=== PATIENT | female | born 1945 | race Caucasian/White ===

== ENCOUNTER → 2017-08-21 13:31 | Outpatient (CLI) | payer MEDICARE, OTHER, SELFPAY ==
--- NOTE | 2017-08-21 13:34 | HPBI_ITS ---
MAMMOGRAPHY - BILATERAL SCREENING REASON FOR EXAM: Female, 71 years old. Routine annual screening examination. PERTINENT HISTORY: Non-contributory. Remote left excisional breast biopsy. TECHNIQUE: Digital bilateral breast ted (3D mammographic acquisition) in the CC and MLO projections. 2-D mediolateral oblique (MLO) and craniocaudad (CC) views of both breasts were obtained. CAD: Full Field Digital Mammography with Computer Added Detection was performed. COMPARISON: Comparison is made with prior study dated June 18, 2016 and November 10, 2014. FINDINGS: Breast Composition: There are scattered areas of fibroglandular density. There are no dominant masses or suspicious calcifications. No other significant abnormalities are identified. There has been no significant change since the prior study. HPBI/SCREENING MAMM (CAD), BILAT IMPRESSION: Stable bilateral screening mammogram. Yearly follow-up mammogram recommended. (A) ASSESSMENT CATEGORY: BIRADS Category 1: Negative. A letter regarding these results will be sent to the patient by the facility within 30 days. Approximately 10% of breast cancers are not detected by mammography. A normal mammogram should not delay biopsy of a clinically suspicious abnormality. [id number] Electronically Signed: Braeden Anderson MD at 8:45 EST Tel [phone], Service support ,
== END ==
PROVIDERS: Family Provider Family Medicine Geriatric Medicine; PCP Family Medicine Geriatric Medicine; Visit Provider Family Medicine Geriatric Medicine
DX: Z12.31 Encounter for screening mammogram for malignant neoplasm of breast (principal)
CPT/HCPCS: 77063; 77067

== ENCOUNTER → 2017-08-26 11:48 | Outpatient (CLI) | payer MEDICARE, OTHER, SELFPAY ==
[2017-08-26 13:54] LABS: Absolute Lymphocyte Count 0.95 X10^3/ul (0.83-4.51); Absolute Neutrophil Count 5.1 X10^3/uL (2.0-7.7); Basophil# 0.03 X10^3/uL; Basophil% 0.4 % (0-1); Eosinophils% 2.9 % (0-5); Hematocrit 41.4 % (37-47); Hemoglobin 13.7 g/dl (12.0-15.0); Lymphocyte # 0.95 X10^3/ul (4.0); Mean Corp Hgb Conc 33.1 g/gl (32-36); Mean Corpuscular Hgb 29.8 pg (27.0-32.0); Mean Platelet Vol. 11.2 fl (6.2-12.0); Monocyte# 0.53 X10^3/uL; Monocyte% 7.8 % (0-10); Neutrophil # 5.07 X10^3/uL (2.7-7.7); Neutrophil % 74.8 % (47-70); Platelet Count 259 K/mm3 (150-450); RBC Distribution Width CV 13.6 % (11.6-14.6); RBC Distribution Width SD 44.7 fl (35.1-43.9); White Blood Count 6.8 K/mm3 (4.4-11.0)
[2017-08-26 13:59] LABS: POSITIVE COUNT NO; POSITIVE DIFFERENTIAL NO; POSITIVE MORPHOLOGY NO
[2017-08-26 14:16] LABS: AST(SGOT) 17 U/L (15-37); Alanine Aminotransfer ALT/SGPT 26 U/L (13-56); Albumin, Serum 3.5 g/dL (3.2-5.0); Alkaline Phosphatase 83 U/L (45-117); Anion Gap 11 (5-15); BUN 24 mg/dL (7-18); BUN/Creat Ratio 27.3 RATIO (10-20); Calcium,Total 8.8 mg/dL (8.5-10.1); Chloride 100 mmol/L (98-107); Creatinine, Serum 0.88 mg/dL (0.55-1.02); EST Glomerular Filtration Rate 68 mL/min (>60); Est Glom Filt Rate - Afr Amer 82 mL/min (>60); Globulin 3.4 g/dL (2.2-4.2); Glucose 184 mg/dL (74-106); Potassium 3.6 mmol/L (3.5-5.1); Protein, Total 6.9 g/dL (6.4-8.2); Sodium Level 140 mmol/L (136-145); Thyroid Stim Hormone (TSH) 1.24 uIU/mL (0.358-3.74)
[2017-08-27 09:43] LABS: Vitamin D,25 Hydroxy 25.4 ng/mL (29.95-100.01)
== END ==
PROVIDERS: Family Provider Family Medicine Geriatric Medicine; PCP Family Medicine Geriatric Medicine; Visit Provider Family Medicine Geriatric Medicine
DX: I10 Essential (primary) hypertension (principal); E11.9 Type 2 diabetes mellitus without complications; E55.9 Vitamin D deficiency, unspecified
CPT/HCPCS: 36415; 80053; 82306; 84443; 85025

== ENCOUNTER → 2017-11-20 11:53 | Outpatient (CLI) | payer MEDICARE, OTHER, SELFPAY ==
[2017-11-20 13:05] LABS: Absolute Lymphocyte Count 0.75 X10^3/ul (0.83-4.51); Absolute Neutrophil Count 5.2 X10^3/uL (2.0-7.7); Basophil# 0.03 X10^3/uL; Basophil% 0.4 % (0-1); Eosinophil# 0.17 X10^3/uL; Eosinophils% 2.5 % (0-5); Hematocrit 42.5 % (37-47); Hemoglobin 13.7 g/dl (12.0-15.0); Lymphocyte # 0.75 X10^3/ul (4.0); Lymphocyte % 11.2 % (19-41); Mean Corp Hgb Conc 32.2 g/gl (32-36); Mean Corpuscular Hgb 29.2 pg (27.0-32.0); Mean Corpuscular Volume 90.6 fL (81-99); Mean Platelet Vol. 11.1 fl (6.2-12.0); Monocyte# 0.56 X10^3/uL; Monocyte% 8.3 % (0-10); Neutrophil % 77.5 % (47-70); POSITIVE COUNT NO; POSITIVE DIFFERENTIAL NO; POSITIVE MORPHOLOGY NO; Platelet Count 261 K/mm3 (150-450); RBC Distribution Width CV 14.1 % (11.6-14.6); RBC Distribution Width SD 46.2 fl (35.1-43.9); Red Blood Count 4.69 M/mm3 (4.2-5.4); White Blood Count 6.7 K/mm3 (4.4-11.0)
[2017-11-20 13:24] LABS: AST(SGOT) 18 U/L (15-37); Alanine Aminotransfer ALT/SGPT 25 U/L (13-56); Albumin, Serum 3.7 g/dL (3.2-5.0); Alkaline Phosphatase 83 U/L (45-117); Anion Gap 6 (5-15); BUN 25 mg/dL (7-18); BUN/Creat Ratio 28.5 RATIO (10-20); Calcium,Total 9.1 mg/dL (8.5-10.1); Chloride 102 mmol/L (98-107); Creatinine, Serum 0.88 mg/dL (0.55-1.02); EST Glomerular Filtration Rate 68 mL/min (>60); Est Glom Filt Rate - Afr Amer 82 mL/min (>60); Globulin 3.7 g/dL (2.2-4.2); Glucose 120 mg/dL (74-106); Potassium 3.6 mmol/L (3.5-5.1); Protein, Total 7.4 g/dL (6.4-8.2); Sodium Level 140 mmol/L (136-145); Thyroid Stim Hormone (TSH) 1.17 uIU/mL (0.358-3.74)
[2017-11-21 10:14] LABS: Vitamin D,25 Hydroxy 22.2 ng/mL (29.95-100.01)
[2017-11-21 11:35] LABS: Hep C Antibodies <0.1 s/co ratio (0.0-0.9)
== END ==
PROVIDERS: Family Provider Family Medicine Geriatric Medicine; PCP Family Medicine Geriatric Medicine; Visit Provider Family Medicine Geriatric Medicine
DX: E11.9 Type 2 diabetes mellitus without complications (principal); E55.9 Vitamin D deficiency, unspecified; I10 Essential (primary) hypertension; Z13.89 Encounter for screening for other disorder
CPT/HCPCS: 36415; 80053; 82306; 84443; 85025; 86803

== ENCOUNTER → 2018-05-27 11:34 | Outpatient (CLI) | payer MEDICARE, OTHER, SELFPAY ==
[2018-05-27 12:41] LABS: Absolute Lymphocyte Count 1.19 X10^3/ul (0.83-4.51); Absolute Neutrophil Count 6.6 X10^3/uL (2.0-7.7); Basophil# 0.03 X10^3/uL; Basophil% 0.3 % (0-1); Eosinophil# 0.25 X10^3/uL; Eosinophils% 2.9 % (0-5); Hematocrit 43.2 % (37-47); Hemoglobin 13.8 g/dl (12.0-15.0); Lymphocyte # 1.19 X10^3/ul (4.0); Lymphocyte % 13.7 % (19-41); Mean Corp Hgb Conc 31.9 g/gl (32-36); Mean Corpuscular Hgb 29.2 pg (27.0-32.0); Mean Corpuscular Volume 91.3 fL (81-99); Mean Platelet Vol. 10.9 fl (6.2-12.0); Monocyte# 0.55 X10^3/uL; Monocyte% 6.3 % (0-10); Neutrophil # 6.64 X10^3/uL (2.7-7.7); Neutrophil % 76.6 % (47-70); Platelet Count 265 K/mm3 (150-450); RBC Distribution Width CV 13.6 % (11.6-14.6); RBC Distribution Width SD 45.2 fl (35.1-43.9); Red Blood Count 4.73 M/mm3 (4.2-5.4); White Blood Count 8.7 K/mm3 (4.4-11.0)
[2018-05-27 12:48] LABS: POSITIVE COUNT NO; POSITIVE DIFFERENTIAL NO; POSITIVE MORPHOLOGY NO
[2018-05-27 12:55] LABS: Vitamin D,25 Hydroxy 20.2 ng/mL (29.95-100.01)
[2018-05-27 13:03] LABS: AST(SGOT) 18 U/L (15-37); Albumin, Serum 3.5 g/dL (3.2-5.0); BUN 21 mg/dL (7-18); BUN/Creat Ratio 25.8 RATIO (10-20); Creatinine, Serum 0.82 mg/dL (0.55-1.02); EST Glomerular Filtration Rate 74 mL/min (>60); Est Glom Filt Rate - Afr Amer 89 mL/min (>60); Globulin 3.5 g/dL (2.2-4.2); Glucose 118 mg/dL (74-106)
[2018-05-27 13:04] LABS: Alanine Aminotransfer ALT/SGPT 25 U/L (13-56); Alkaline Phosphatase 70 U/L (45-117); Anion Gap 11 (5-15); Chloride 101 mmol/L (98-107); Potassium 3.7 mmol/L (3.5-5.1); Sodium Level 140 mmol/L (136-145); Thyroid Stim Hormone (TSH) 0.77 uIU/mL (0.358-3.74)
--- OUTSIDE RECORDS SUMMARY | 2018-07-22 20:32 | XMS RPT_ITS ---
:1945 Author Organization [facility] Care Team Providers Name Role Phone ANISH MILLIGAN Attending Unavailable ANISH MILLIGAN Referring Unavailable JOESPH, STUART-CHI Primary Care Unavailable ANISH MILLIGAN Attending Unavailable [facility] Referring Unavailable JOESPH, STUART-CHI Primary Care Unavailable ANISH MILLIGAN Attending Unavailable [facility] Referring Unavailable JOESPH, STUART-CHI Primary Care Unavailable Joesph, Stuart Chi Attending Unavailable Joesph, Stuart Chi Primary Care Unavailable Joesph, Stuart Chi Referring Unavailable Joesph, Stuart Chi Attending Unavailable Joesph, Stuart Chi Primary Care Unavailable Joesph, Stuart Chi Attending Unavailable Joesph, Stuart Chi Primary Care Unavailable Joesph, Stuart Chi Attending Unavailable Joesph, Stuart Chi Primary Care Unavailable CLIFF SÁNCHEZ (OD) Attending Unavailable LATHA DURAN Referring Unavailable ANISH MILLIGAN Attending Unavailable PROBLEMS PROBLEMS DATE TYPE CONDITION / CODE ATTENDING STATUS SOURCE 03/25/2017 Active Presence of right SRINI ANISH Active [place] artificial knee [facility] Other joint / [place] Z96.651(ICD-10) Repository 06/16/2018 Active Contusion of right PETERSONDAVID ANISH Active [place] knee, initial [facility] Other encounter / [place] S80.01XA(ICD-10) Repository 03/25/2017 Admitting Unknown / ANISH MILLIGAN Active [facility]Unknown[facility] Repository 05/27/2018 Unknown E11.9 - Type 2 Joesph, Stuart Chi Active [place] diabetes mellitus [facility] without Hospital complications / Repository E11.9(ICD-10) 05/27/2018 Unknown E55.9 - Vitamin D Joesph, Stuart Chi Active [place] deficiency, Community unspecified / Hospital E55.9(ICD-10) Repository 05/27/2018 Unknown I10 - Essential Joesph, Stuart Chi Active [place] (primary) Community hypertension / Hospital I10(ICD-10) Repository PROCEDURES PROCEDURES No Procedure Records FoundRESULTS RESULTS PROGRESS Observed: 06/16/2018 Status: COMPLETED Source: [facility] 9:23 AM [facility] OTHER CAMPUS REPOSITORY HNO ID: [id number] Author: Anish Milligan Service: (none) Author Type: Physician Type: Progress Notes Filed: 06/16/2018 9:32 AM Note Text: Chief Complaint: Follow up right knee arthroplasty but recent fall a couple weeks ago History: Filomena is a 72 year old female here for follow-up of her right total knee arthoplasty. She is having pain. He has a bruise laterally. Fell out of bed in early May. No knee joint swelling. Soft tissue bruising and soreness. No instability. Said she was doing well until the fall. There is no lower extremity numbness or tingling. No hip, back, or groin pain. The patient is capable of doing activities of daily living. The patient is not using an ambulatory aide. She denies chest pain, SOB, fever,or chills. No calf pain reported. REVIEW OF SYSTEMS: The review of systems was obtained and reviewed today. It is contained in todays visit in the nursing notes section. The patient's past medical, family medical, social and surgical histories have been reviewed. I have also reviewed allergies and medications with the patient as well. . PHYSICAL EXAMINATION: Patient is alert, oriented and in no acute distress Upper Extremities: Patient's upper extremities have normal appearing alignment, skin circulation, sensation and reflexes, stability, range of motion and strength. There is no apparent atrophy or asymmetry. Lower Extremity: RIGHT Skin intact and well healed anterior incision,bruising over prox tibia laterla Drainage None Erythema no erythema Effusion None ROM 0-125? Tenderness lateral Crepitance None Stability Stable to anterior and posterior drawer testing and to varus and valgus stress testing at 0? and 30? flexion Patella Normal patellar mobility and stability Alignment Normal Calf No calf tenderness, negative Chloe exam and no palpable cords BILATERAL Neurologic Lower extremities exhibit normal strength and sensation to light touch Circulation Intact Edema absent Radiologic Examination: Recent Results (from the past 36 hour(s)) -XR KNEE POST OP 3V AP/LAT/MERCHANT RT Narrative Radiographic Interpretation: AP, lateral, and sunrise radiographs of the right knee was ordered, taken and reviewed today. The radiographs show normal alignment of the knee replacement. There is no evidence of loosening or malrotation. The patella is located well in the trochlea. There is no signs of significant polyethelene wear. No signs of fracture, avulsion or dislocation. No overt signs of bony tumor. Radiographic interpretation: Normal right total knee radiographs, Yary Persona System, stemmed Assessment: Status post total right knee replacement (primary encounter diagnosis) Contusion of right knee, initial encounter Plan: The patient understands total knee activity modifications, recommended antibiotic prophylaxis for total joint arthroplasty and total knee arthroplasty precautions. She is using otc meds for pain management purposes. Patient understands the use of the medication and their risks, complications, benefits and alternatives, including addiction potential when narcotics are used. The need to wean and decrease and eventually stop naroctic medicaiton was discussed. If tolerated and if the patient is not aware of any contraindications, it was suggested to try to use over the counter medications such as Advil or Aleve and Tylenol were discussed as well as dosage, risks complications and benefits. They understand if they have been advised not to take such medications by another practitoner such as their PCP or specialist, that they should avoid their use. If there are any problems prior to her next appointment, she was instructed to call the office FOLLOW-UP: In approximately 3 months, 6 months, 1 year and PRN . Anish Milligan MD CNOV Observed: 06/16/2018 Status: COMPLETED Source: [facility] 9:15 AM [facility]IC OTHER CAMPUS REPOSITORY Office Visit ([id number]) FILOMENA ALMODOVAR ([id number]) 1945 F Date Time Provider Department 06/16/18 9:15 AM ANISH MILLIGAN [id number] During your visit today, we recorded the following information about you: Respiration Weight Height 16/minute 68 kg 1.6 m Miguelangel MancillaJesse 06/16/2018 9:32 AM Signed REVIEW OF SYSTEMS: GENERAL: Well developed, well nourished. No acute distress PAIN: right knee pain CARDIOVASCULAR: Negative for chest pain, leg swelling and palpations. MSK: Negative for joint pain, swelling, back pain, muscle pain. SKIN: Negative for lesions, rash, itching, metal sensitivity NEURO: Negative for seizure, trauma, numbness/tingling of extremities. ENDOCRINE: Negative for Diabetes Type 1 and Type 2 HEMATOLOGY: Negative for excessive bleeding, clots, bleeding disorders. Anish Milligan MD 06/16/2018 9:32 AM Signed Chief Complaint: Follow up right knee arthroplasty but recent fall a couple weeks ago History: Filomena is a 72 year old female here for follow-up of her right total knee arthoplasty. She is having pain. He has a bruise laterally. Fell out of bed in early May. No knee joint swelling. Soft tissue bruising and soreness. No instability. Said she was doing well until the fall. There is no lower extremity numbness or tingling. No hip, back, or groin pain. The patient is capable of doing activities of daily living. The patient is not using an ambulatory aide. She denies chest pain, SOB, fever,or chills. No calf pain reported. REVIEW OF SYSTEMS: The review of systems was obtained and reviewed today. It is contained in todays visit in the nursing notes section. The patient's past medical, family medical, social and surgical histories have been reviewed. I have also reviewed allergies and medications with the patient as well. . PHYSICAL EXAMINATION: Patient is alert, oriented and in no acute distress Upper Extremities: Patient's upper extremities have normal appearing alignment, skin circulation, sensation and reflexes, stability, range of motion and strength. There is no apparent atrophy or asymmetry. Lower Extremity: RIGHT Skin intact and well healed anterior incision,bruising over prox tibia laterla Drainage None Erythema no erythema Effusion None ROM 0-125? Tenderness lateral Crepitance None Stability Stable to anterior and posterior drawer testing and to varus and valgus stress testing at 0? and 30? flexion Patella Normal patellar mobility and stability Alignment Normal Calf No calf tenderness, negative Chloe exam and no palpable cords BILATERAL Neurologic Lower extremities exhibit normal strength and sensation to light touch Circulation Intact Edema absent Radiologic Examination: Recent Results (from the past 36 hour(s)) -XR KNEE POST OP 3V AP/LAT/MERCHANT RT Narrative Radiographic Interpretation: AP, lateral, and sunrise radiographs of the right knee was ordered, taken and reviewed today. The radiographs show normal alignment of the knee replacement. There is no evidence of loosening or malrotation. The patella is located well in the trochlea. There is no signs of significant polyethelene wear. No signs of fracture, avulsion or dislocation. No overt signs of bony tumor. Radiographic interpretation: Normal right total knee radiographs, Y[employer] Persona System, stemmed Assessment: Status post total right knee replacement (primary encounter diagnosis) Contusion of right knee, initial encounter Plan: The patient understands total knee activity modifications, recommended antibiotic prophylaxis for total joint arthroplasty and total knee arthroplasty precautions. She is using otc meds for pain management purposes. Patient understands the use of the medication and their risks, complications, benefits and alternatives, including addiction potential when narcotics are used. The need to wean and decrease and eventually stop naroctic medicaiton was discussed. If tolerated and if the patient is not aware of any contraindications, it was suggested to try to use over the counter medications such as Advil or Aleve and Tylenol were discussed as well as dosage, risks complications and benefits. They understand if they have been advised not to take such medications by another practitoner such as their PCP or specialist, that they should avoid their use. If there are any problems prior to her next appointment, she was instructed to call the office FOLLOW-UP: In approximately 3 months, 6 months, 1 year and PRN . Anish Milligan MD Referring Provider: SELF [200] Allergies As of Date: 06/16/2018 Noted Allergy Reaction AMOXICILLIN 12/12/2000 Comments: hives LATEX 02/25/2005 2 - Rash LYRICA (PREGABALIN) 03/14/2009 Comments: Intolerance MACROBID (NITROFURANTOIN MONOHYD/*02/25/2005 PENICILLINS 06/25/2002 Comments: hives ZOLOFT (SERTRALINE HCL) 02/25/2005 Date Reviewed: 06/16/2018 Reviewed by: Anish Milligan - Fully Assessed Reason for Visit: Follow Up [171] Cmt: f/u status post right knee TKA. Yearly f/u Primary Visit Diagnosis:Status post total right knee replacement [Z96.651] Other Visit Diagnosis:Contusion of right knee, initial encounter [S80.01XA] Order(s):XR KNEE POST OP 3V AP/LAT/MERCHANT RT [[id number]] Order #: [id number] Prescriptions as of 06/16/2018 Sig: ATENOLOL 50 MG-CHLORTHALIDONE* Take one(1) tablet daily. ATORVASTATIN 40 MG TABLET Take 40 mg by mouth once [place]ville* DULOXETINE 30 MG CAPSULE,SANDI* ENOXAPARIN 30 MG/0.3 ML SUBCU* SYNTHROID 112 MCG TABLET Take one(1) tablet daily. LISINOPRIL 5 MG TABLET OXYCODONE-ACETAMINOPHEN 5 MG-* Take 1-2 tablets by mouth katey* OXYCODONE-ACETAMINOPHEN 5 MG-* 1 to 2 tab(s) by mouth every * POTASSIUM CHLORIDE ER 20 MEQ * PREDNISONE 5 MG TABLET Take 5 mg by mouth once daily. BUDESONIDE DR - ER 3 MG CAPSU* CIPROFLOXACIN 500 MG TABLET COLESTIPOL 1 GRAM TABLET DEXLANSOPRAZOLE 60 MG CAPSULE* Take 60 mg by mouth twice óscar* DICYCLOMINE 20 MG TABLET Take 1 tablet by mouth three * DIPHENOXYLATE-ATROPINE 2.5 MG* Take 2 tablets by mouth three* DULOXETINE 60 MG CAPSULE,SANDI* Take 60 mg by mouth once [place]ville* VITAMIN D2 ORAL Take by mouth. METRONIDAZOLE 500 MG TABLET OMEPRAZOLE 20 MG CAPSULE,SANDI* ONDANSETRON HCL 4 MG TABLET OXYCODONE 5 MG TABLET PAROXETINE 40 MG TABLET POTASSIMIN ORAL Take 3 tablets by mouth twice* RIFAXIMIN 550 MG TABLET Take 1 tablet by mouth three * Problem List As Of Date 06/16/2018 Noted Resolved Multiple Sclerosis [G35] INVALID FOR* Class: Chronic Essential Hypertension, Benign [I10] INVALID FOR* Migraine NOS/not Intrcbl [G43.909] INVALID FOR* Polymyalgia Rheumatica [M35.3] INVALID FOR* Nontoxic Multinodular Goiter [E04.2] INVALID FOR* More... Spinal Stenosis in Cervical Region [M48.02] INVALID FOR* Depressive Disorder, not Elsewhere Classified [*INVALID FOR* More... Routine Gynecological Examination [Z01.419] INVALID FOR* Class: Chronic Impaired Fasting Glucose [R73.01] INVALID FOR* More... Achilles bursitis or tendinitis [M76.60] INVALID FOR* Unspecified aftercare [Z51.89] INVALID FOR* Diarrhea [R19.7] Abdominal pain [R10.9] Type 2 diabetes mellitus without retinopathy (H*INVALID FOR* Combined form of age-related cataract, both eye*INVALID FOR* Vitreous floaters of both eyes [H43.393] INVALID FOR* Amblyopia, left eye [H53.002] INVALID FOR* Dry eye syndrome of both eyes [H04.123] INVALID FOR* Status post total right knee replacement [Z96.6*INVALID FOR* Disposition: Return in about 6 months (around 12/15/2018), or if symptoms worsen or fail to improve. Follow-up and Disposition History Recorded Encounter Status:Closed by ANISH MILLIGAN MD on 06/16/18 PROGRESS Observed: 06/16/2018 Status: COMPLETED Source: [facility] 9:04 AM [facility] OTHER CAMPUS REPOSITORY HNO ID: [id number] Author: Miguelangel (Jesse) Laurent Service: (none) Author Type: Gas Roller Operator Type: Progress Notes Filed: 06/16/2018 9:32 AM Note Text: REVIEW OF SYSTEMS: GENERAL: Well developed, well nourished. No acute distress PAIN: right knee pain CARDIOVASCULAR: Negative for chest pain, leg swelling and palpations. MSK: Negative for joint pain, swelling, back pain, muscle pain. SKIN: Negative for lesions, rash, itching, metal sensitivity NEURO: Negative for seizure, trauma, numbness/tingling of extremities. ENDOCRINE: Negative for Diabetes Type 1 and Type 2 HEMATOLOGY: Negative for excessive bleeding, clots, bleeding disorders. CBC W/DIFF, AUTOMATED Collected: 05/27/2018 Status: F Source: [place] 11:35 AM [facility] REPOSITORY TYPE CODE TESTS RESULT OUT OF RANGE REFERENCE UNITS LAB L100.1000 4.4-11.0 K/mm3 Normal WBC 8.7 LAB L100.1200 4.2-5.4 M/mm3 Normal RBC 4.73 LAB L100.1300 12.0-15.0 g/dl Normal HGB 13.8 LAB L100.1400 37-47 % Normal HCT 43.2 LAB L100.1500 81-99 fL Normal MCV 91.3 LAB L100.1600 27.0-32.0 pg Normal MCH 29.2 LAB L100.1700 32-36 g/gl Low MCHC 31.9 LAB L100.1810 11.6-14.6 % Normal RDW CV 13.6 LAB L100.1820 35.1-43.9 fl High RDW SD 45.2 LAB L100.1900 150-450 K/mm3 Normal PLT 265 LAB L100.2000 6.2-12.0 fl Normal MPV 10.9 LAB L100.2100 47-70 % High NEUT% 76.6 LAB L100.2200 19-41 % Low LY% 13.7 LAB L100.2300 0-10 % Normal MONO% 6.3 LAB L100.2400 0-5 % Normal EO% 2.9 LAB L100.2500 0-1 % Normal BASO% 0.3 LAB L100.2550 0.0-0.9 % Normal IM GRAN % 0.200 Result Comment: IG% - Immature Granulocytes (promyelocytes, myelocytes and metamyelocytes) > 1% indicates that a LEFT SHIFT is Present. LAB L100.2620 2.0-7.7 X10 3/uL Normal Absolute Neut 6.6 LAB L100.2720 0.83-4.51 X10 3/ul Normal Absolute Lymph 1.19 Performed By: #### L100.0100 #### [facility] [address] [place], [address] VITAMIN D,25 HYDROXY Collected: 05/27/2018 Status: F Source: [place] 11:35 AM [facility] REPOSITORY TYPE CODE TESTS RESULT OUT OF REFERENCE UNITS RANGE LAB L506.1000 29.95-100.01 ng/mL Low Vitamin D 20.2 25-OH Result Comment: Vitamin D 25(OH) Status Range Deficiency <20 ng/mL (50nmol/L) Insuffciency 20 - 30 ng/mL (50 - 75 nmol/L) Sufficiency 30 - 100 ng/mL (75 - 250 nmol/L) Toxicity >100 ng/mL (>250 nmol/L) Performed By: #### L506.1000 #### [facility] [address] [place], [address] COMPREHENSIVE METABOLIC Collected: 05/27/2018 Status: F Source: [place] 11:35 AM [facility] REPOSITORY TYPE CODE TESTS RESULT OUT OF RANGE REFERENCE UNITS LAB L501.0100 74-106 mg/dL High GLU 118 Result Comment: Fasting Glucose result from 100 to 125 mg/dL suggests IMPAIRED HOMEOSTASIS per A.D.A. criteria. Please note revised GLUCOSE reference range effective 2017. LAB L501.1000 7-18 mg/dL High BUN 21 LAB L501.1100 0.55-1.02 mg/dL Normal CREAT,SERUM 0.82 Result Comment: The validity of the calculated GFR AND GFRAA in patients over 70 years has not been determined. Clinical correlation is essential. LAB L501.1110 >60 mL/min Normal EST GFR 74 Result Comment: Non- GFR Calc LAB L501.1115 >60 mL/min Normal EST GFR - AA 89 Result Comment: GFR Calc LAB L501.1300 10-20 RATIO High BUN/CRE 25.8 LAB L501.1500 6.4-8.2 g/dL T Normal PROT 7.0 LAB L501.1800 3.2-5.0 g/dL Normal ALB 3.5 LAB L501.1950 2.2-4.2 g/dL Normal GLOB 3.5 LAB L501.2000 0.9-2.4 RATIO Normal A/G 1.0 LAB L501.2200 8.5-10.1 mg/dL CA Normal 9.0 LAB L501.4100 15-37 U/L Normal AST 18 LAB L501.4305 45-117 U/L Normal ALK P 70 LAB L501.4405 13-56 U/L Normal ALT 25 LAB L501.4600 0.20-1.00 mg/dL T Normal BILI 0.70 LAB L501.5300 136-145 mmol/L NA Normal 140 LAB L501.5600 3.5-5.1 mmol/L K Normal 3.7 LAB L501.5900 98-107 mmol/L CL Normal 101 LAB L501.6100 21.0-32.0 mmol/L Normal CO2 28.0 LAB L501.6200 5-15 Normal GAP 11 Performed By: #### L500.4050, L501.9520 #### [facility] [address] [place], [place], [address] THYROID STIM HORMONE Collected: 05/27/2018 Status: F Source: [place] (TSH) 11:35 AM [facility] REPOSITORY TYPE CODE TESTS RESULT OUT OF RANGE REFERENCE UNITS LAB L501.9520 0.358-3.74 uIU/mL Normal TSH 0.77 Performed By: #### L500.4050, L501.9520 #### [facility] [address] [place], [address] CBC W/DIFF, AUTOMATED Collected: 11/20/2017 Status: F Source: [place] 11:55 AM [facility] REPOSITORY TYPE CODE TESTS RESULT OUT OF RANGE REFERENCE UNITS LAB L100.1000 4.4-11.0 K/mm3 Normal WBC 6.7 LAB L100.1200 4.2-5.4 M/mm3 Normal RBC 4.69 LAB L100.1300 12.0-15.0 g/dl Normal HGB 13.7 LAB L100.1400 37-47 % Normal HCT 42.5 LAB L100.1500 81-99 fL Normal MCV 90.6 LAB L100.1600 27.0-32.0 pg Normal MCH 29.2 LAB L100.1700 32-36 g/gl Normal MCHC 32.2 LAB L100.1810 11.6-14.6 % Normal RDW CV 14.1 LAB L100.1820 35.1-43.9 fl High RDW SD 46.2 LAB L100.1900 150-450 K/mm3 Normal PLT 261 LAB L100.2000 6.2-12.0 fl Normal MPV 11.1 LAB L100.2100 47-70 % High NEUT% 77.5 LAB L100.2200 19-41 % Low LY% 11.2 LAB L100.2300 0-10 % Normal MONO% 8.3 LAB L100.2400 0-5 % Normal EO% 2.5 LAB L100.2500 0-1 % Normal BASO% 0.4 LAB L100.2550 0.0-0.9 % Normal IM GRAN % 0.100 Result Comment: IG% - Immature Granulocytes (promyelocytes, myelocytes and metamyelocytes) > 1% indicates that a LEFT SHIFT is Present. LAB L100.2620 2.0-7.7 X10 3/uL Normal Absolute Neut 5.2 LAB L100.2720 0.83-4.51 X10 3/ul Low Absolute Lymph 0.75 Performed By: #### L100.0100 #### [facility] [address] [place], [address] COMPREHENSIVE METABOLIC Collected: 11/20/2017 Status: F Source: [facility] 11:55 AM [facility] REPOSITORY TYPE CODE TESTS RESULT OUT OF RANGE REFERENCE UNITS LAB L501.0100 74-106 mg/dL High GLU 120 Result Comment: Fasting Glucose result from 100 to 125 mg/dL suggests IMPAIRED HOMEOSTASIS per A.D.A. criteria. Please note revised GLUCOSE reference range effective 2017. LAB L501.1000 7-18 mg/dL High BUN 25 LAB L501.1100 0.55-1.02 mg/dL Normal CREAT,SERUM 0.88 Result Comment: The validity of the calculated GFR AND GFRAA in patients over 70 years has not been determined. Clinical correlation is essential. LAB L501.1110 >60 mL/min Normal EST GFR 68 Result Comment: Non- GFR Calc LAB L501.1115 >60 mL/min Normal EST GFR - AA 82 Result Comment: GFR Calc LAB L501.1300 10-20 RATIO High BUN/CRE 28.5 LAB L501.1500 6.4-8.2 g/dL T Normal PROT 7.4 LAB L501.1800 3.2-5.0 g/dL Normal ALB 3.7 LAB L501.1950 2.2-4.2 g/dL Normal GLOB 3.7 LAB L501.2000 0.9-2.4 RATIO Normal A/G 1.0 LAB L501.2200 8.5-10.1 mg/dL CA Normal 9.1 LAB L501.4100 15-37 U/L Normal AST 18 LAB L501.4305 45-117 U/L Normal ALK P 83 LAB L501.4405 13-56 U/L Normal ALT 25 LAB L501.4600 0.20-1.00 mg/dL T Normal BILI 0.50 LAB L501.5300 136-145 mmol/L NA Normal 140 LAB L501.5600 3.5-5.1 mmol/L K Normal 3.6 LAB L501.5900 98-107 mmol/L CL Normal 102 LAB L501.6100 21.0-32.0 mmol/L Normal CO2 32.0 LAB L501.6200 5-15 Normal GAP 6 Performed By: #### L500.4050, L501.9520 #### [facility] [address] [place] [place], [address] THYROID STIM HORMONE Collected: 11/20/2017 Status: F Source: [place] (TSH) 11:55 AM [facility] REPOSITORY TYPE CODE TESTS RESULT OUT OF RANGE REFERENCE UNITS LAB L501.9520 0.358-3.74 uIU/mL Normal TSH 1.17 Performed By: #### L500.4050, L501.9520 #### [facility] [address] [facility] [place], [place], [address] VITAMIN D,25 HYDROXY Collected: 11/20/2017 Status: F Source: [place] 11:55 AM [facility] REPOSITORY TYPE CODE TESTS RESULT OUT OF REFERENCE UNITS RANGE LAB L506.1000 29.95-100.01 ng/mL Low Vitamin D 22.2 25-OH Result Comment: Vitamin D 25(OH) Status Range Deficiency <20 ng/mL (50nmol/L) Insuffciency 20 - 30 ng/mL (50 - 75 nmol/L) Sufficiency 30 - 100 ng/mL (75 - 250 nmol/L) Toxicity >100 ng/mL (>250 nmol/L) Performed By: #### L506.1000 #### [facility] [address] [facility] [place], [place], [address] HEPATITIS C ANTIBODIES Collected: 11/20/2017 Status: F Source: [place] 11:55 AM [facility] REPOSITORY TYPE CODE TESTS RESULT OUT OF RANGE REFERENCE UNITS LAB L3100.0650 0.0-0.9 s/co ratio Normal HEP C AB <0.1 Result Comment: Negative: < 0.8 Indeterminate: 0.8 - 0.9 Positive: > 0.9 The CDC recommends that a positive HCV antibody result be followed up with a HCV Nucleic Acid Amplification test ([id number]). Performed at: - [facility] [address] [id number] Service Director: Je Dooley PhD, Phone: [phone] Performed By: #### L3100.0625 #### [facility] (refer to report for specific site) refer to report for address and phone number PROGRESS Observed: 11/05/2017 Status: COMPLETED Source: [place] 10:26 AM [facility] [place] REPOSITORY HNO ID: [id number] Author: Cliff Sánchez (Od) Service: (none) Author Type: MATERIALS SCHEDULER Type: Progress Notes Filed: 11/05/2017 10:28 AM Note Text: ASSESSMENT/PLAN: 1. Combined form of age-related cataract, both eyes - ICD9: 366.19, ICD10: H25.813 (primary diagnosis) Not visually significant / Observe Advise patient to see her Gang Punch Operator for refraction and glasses Current glasses 5+ years old Patient wishes to schedule her own appointment 2. Vitreous floaters of both eyes - ICD9: 379.24, ICD10: H43.393 Patient was given both written and verbal information on flashes and floaters. Patient was instructed to call the office ([phone]) immediately upon noticing flashes of light, increase in floaters, or changes in vision. 3. Dry eye syndrome of both eyes - ICD9: 375.15, ICD10: H04.123 Blink Lubricating Eye Drops, 1 drop, four times a day, both eyes. 4. Amblyopia, left eye - ICD9: 368.00, ICD10: H53.002 Stable / Observe Cliff Sánchez OD I have confirmed and edited as necessary the relevant ophthalmic history, review of systems, surgical history, and ophthalmological examination findings as obtained by the ophthalmic technical staff. I have seen and examined Filomena Almodovar. I have discussed the examination findings, diagnosis, and treatment options with Filomena Almodovar and/or her family. I have also reviewed and agree with the assessment and plan as stated above and agree with all its relevant components. I gave the patient the opportunity to ask questions about the findings, diagnosis, and treatment options. CBC W/DIFF, AUTOMATED Collected: 08/26/2017 Status: F Source: [place] 11:53 AM [facility] REPOSITORY TYPE CODE TESTS RESULT OUT OF RANGE REFERENCE UNITS LAB L100.1000 4.4-11.0 K/mm3 Normal WBC 6.8 LAB L100.1200 4.2-5.4 M/mm3 Normal RBC 4.60 LAB L100.1300 12.0-15.0 g/dl Normal HGB 13.7 LAB L100.1400 37-47 % Normal HCT 41.4 LAB L100.1500 81-99 fL Normal MCV 90.0 LAB L100.1600 27.0-32.0 pg Normal MCH 29.8 LAB L100.1700 32-36 g/gl Normal MCHC 33.1 LAB L100.1810 11.6-14.6 % Normal RDW CV 13.6 LAB L100.1820 35.1-43.9 fl High RDW SD 44.7 LAB L100.1900 150-450 K/mm3 Normal PLT 259 LAB L100.2000 6.2-12.0 fl Normal MPV 11.2 LAB L100.2100 47-70 % High NEUT% 74.8 LAB L100.2200 19-41 % Low LY% 14.0 LAB L100.2300 0-10 % Normal MONO% 7.8 LAB L100.2400 0-5 % Normal EO% 2.9 LAB L100.2500 0-1 % Normal BASO% 0.4 LAB L100.2550 0.0-0.9 % Normal IM GRAN % 0.100 Result Comment: IG% - Immature Granulocytes (promyelocytes, myelocytes and metamyelocytes) > 1% indicates that a LEFT SHIFT is Present. LAB L100.2620 2.0-7.7 X10 3/uL Normal Absolute Neut 5.1 LAB L100.2720 0.83-4.51 X10 3/ul Normal Absolute Lymph 0.95 Performed By: #### L100.0100 #### [facility] [address] [place], [place], [id number] COMPREHENSIVE METABOLIC Collected: 08/26/2017 Status: F Source: [place] [facility] 11:53 AM [facility] REPOSITORY TYPE CODE TESTS RESULT OUT OF RANGE REFERENCE UNITS LAB L501.0100 74-106 mg/dL High GLU 184 Result Comment: Fasting Glucose result greater than or equal to 126 mg/dL suggests DIABETES MELLITUS per A.D.A. criteria. Please note revised GLUCOSE reference range effective 2017. LAB L501.1000 7-18 mg/dL High BUN 24 LAB L501.1100 0.55-1.02 mg/dL Normal CREAT,SERUM 0.88 Result Comment: The validity of the calculated GFR AND GFRAA in patients over 70 years has not been determined. Clinical correlation is essential. LAB L501.1110 >60 mL/min Normal EST GFR 68 Result Comment: Non- GFR Calc LAB L501.1115 >60 mL/min Normal EST GFR - AA 82 Result Comment: GFR Calc LAB L501.1300 10-20 RATIO High BUN/CRE 27.3 LAB L501.1500 6.4-8.2 g/dL T Normal PROT 6.9 LAB L501.1800 3.2-5.0 g/dL Normal ALB 3.5 LAB L501.1950 2.2-4.2 g/dL Normal GLOB 3.4 LAB L501.2000 0.9-2.4 RATIO Normal A/G 1.0 LAB L501.2200 8.5-10.1 mg/dL CA Normal 8.8 LAB L501.4100 15-37 U/L Normal AST 17 LAB L501.4305 45-117 U/L Normal ALK P 83 LAB L501.4405 13-56 U/L Normal ALT 26 Result Comment: Please note revised ALT reference range effective 2017. LAB L501.4600 0.20-1.00 mg/dL Normal T BILI 0.60 LAB L501.5300 136-145 mmol/L Normal NA 140 LAB L501.5600 3.5-5.1 mmol/L Normal K 3.6 LAB L501.5900 98-107 mmol/L Normal CL 100 LAB L501.6100 21.0-32.0 mmol/L Normal CO2 29.0 LAB L501.6200 5-15 Normal GAP 11 Performed By: #### L500.4050, L501.9520 #### [facility] [address] [place], [place], [id number] THYROID STIM HORMONE Collected: 08/26/2017 Status: F Source: [place] (T[facility]) 11:53 AM [facility] REPOSITORY TYPE CODE TESTS RESULT OUT OF RANGE REFERENCE UNITS LAB L501.9520 0.358-3.74 uIU/mL Normal TSH 1.24 Performed By: #### L500.4050, L501.9520 #### [facility] [address] [place], [address] VITAMIN D,25 HYDROXY Collected: 08/26/2017 Status: F Source: [place] 11:53 AM [facility] REPOSITORY TYPE CODE TESTS RESULT OUT OF REFERENCE UNITS RANGE LAB L506.1000 29.95-100.01 ng/mL Low Vitamin D 25.4 25-OH Performed By: #### L506.1000 #### [facility] [address] [place], [address] SCREENING MAMM (CAD), Observed: 08/21/2017 Status: F Source: [place]IL[place] 1:34 PM [facility] REPOSITORY [facility] Imaging Services [address] [facility] [address] [place] [address] SCREENING MAMM (CAD), BILAT MR#: [id number] Acct: [id number] Name: FILOMENA ALMODOVAR Rep #: [id number] : 1945 F 71 From: Braeden Anderson MD PCP: Stuart Clark MD, Chi Status: REG CL Study: SCREENING MAMM (CAD), BILAT Date of Exam: 08/21/17 Exam# [id number] Ordering Dr: Stuart Clark MD MAMMOGRAPHY - BILATERAL SCREENING REASON FOR EXAM: Female, 71 years old. Routine annual screening examination. PERTINENT HISTORY: Non-contributory. Remote left excisional breast biopsy. TECHNIQUE: Digital bilateral breast ted (3D mammographic acquisition) in the CC and MLO projections. 2-D mediolateral oblique (MLO) and craniocaudad (CC) views of both breasts were obtained. CAD: Full Field Digital Mammography with Computer Added Detection was performed. COMPARISON: Comparison is made with prior study dated June 18, 2016 and November 10, 2014. FINDINGS: Breast Composition: There are scattered areas of fibroglandular density. There are no dominant masses or suspicious calcifications. No other significant abnormalities are identified. There has been no significant change since the prior study. HPBI/SCREENING MAMM (CAD), BILAT IMPRESSION: Stable bilateral screening mammogram. Yearly follow-up mammogram recommended. (A) ASSESSMENT CATEGORY: BIRADS Category 1: Negative. A letter regarding these results will be sent to the patient by the facility within 30 days. Approximately 10% of breast cancers are not detected by mammography. A normal mammogram should not delay biopsy of a clinically suspicious abnormality. [id number] Electronically Signed: Braeden Anderson MD at 8:45 EST Tel [phone], Service support , CC: Stuart Clark MD [employer]: Signed ALLERGIES ALLERGIES DATE TYPE / NAME / CODE REACTION SEVERITY SOURCE CODE 01/14/2015 Drug Penicillins/[id number] Itching Unknown [place] Allergy/41 76(RXNORM) Community 2412506([facility]) Repository 01/14/2015 Drug amoxicillin/[id number] Itching Unknown [place] Allergy/41 75(RXNORM) Community 8061666([facility]) Repository 03/14/2009 DRUG PREGABALIN [address] 9396073( Repository OMED CT) 02/25/2005 DRUG LATEX RASH [place] [address] [address] [place] [id number]( Repository OMED CT) 02/25/2005 DRUG/46989 NITROFURANTOIN [facility] 1003(SNOME MONOHYD/M-CRYST [address] [place] D [address]) Repository 02/25/2005 DRUG SERTRALINE HCL [address] 5951094( Repository OMED CT) 06/25/2002 Drug PENICILLINS [facility] Class/[address] [place] [address]([facility] Repository ED CT) 12/12/2000 DRUG AMOXICILLIN [facility] INGREDI/[address] [place] 8238945(SN Repository OMED CT) NG/6454132 AMOXICILLIN [facility] 06([facility]) Repository NG/5108924 LATEX [facility] 06([facility] CT) Repository NG/6869618 PREGABALIN [facility] 06([facility] CT) Repository NG/8860847 NITROFURANTOIN [facility] 06(SNOMED MONOHYD/M-CRYST [facility] CT) Repository NG/8482573 PENICILLINS [facility] 06([facility] CT) Repository NG/4940373 SERTRALINE HCL [facility] 06([facility] CT) Repository ENCOUNTERS ENCOUNTERS ADMIT/DISCHARGE ACCOUNT NUMBER ADMITTING ENCOUNTER LOCATION SOURCE CLASS 06/16/2018/06/16/20 [id number] Ambulatory [address] Other [place] Repository 06/16/2018/06/16/20 [id number] Ambulatory [address] MEDICAL Repository CENTERBuildi ng:AGHWW1 06/09/2018 [id number] Ambulatory [facility] MEDICAL Repository CENTERBuildi ng:AGHWW1 06/02/2018 [id number] Ambulatory [facility] MEDICAL Repository CENTERBuildi ng:AGHWW1 05/27/2018 [id number] [facility] ding:POLAB3 Repository 11/20/2017 [id number] [facility] ding:POLAB3 Repository 11/05/2017/11/07/19 [id number] Ambulatory [address] Main [place] Repository 08/26/2017 [id number] [facility] ding:POLAB3 Repository 08/21/2017 [id number] [facility] ding:BI Repository PAYERS PAYERS ENCOUNTER GUARANTOR PAYER SUBSCRIBER SOURCE 06/16/2018 FILOMENA S Primary FILOMENA S [facility] HENDERSONDOB: Insurance:MEDICARE A LIZBETHERSONDOB: [facility] [id number] AND BPolicy Number: [id number] Repository [address], [id number] [place] [address]Ruo: Date: () 06/09/2018 FILOMENA S Primary FILOMENA S [facility] HENDERSONDOB: Insurance:MEDICARE A HENDERSONDOB: Health System AND BPolicy Number: [id number] Repository [facility], [id number] [place] [address]Rpx: Date: () 06/02/2018 FILOMENA S Primary FILOMENA S [facility] HENDERSONDOB: Insurance:MEDICARE A HENDERSONDOB: Health System AND BPolicy Number: [id number] Repository [facility], [id number] [place] [address]Jkm: Date: () 05/27/2018 DON R Primary FILOMENA S [place] [id number] Insurance:MEDICARE JESSEDOB: [facility], PART A [facility] [id number] [facility] [place] [address]Rqb: Number: Repository [id number] () Date:2018-05-27 05/27/2018 Secondary DON R [place] Insurance:[facility]: [facility] Number: [id number] Hospital [id number] Repository Date:0637-88-69PH [address] [place] [phone]: 05/27/2018 Tertiary NOT GIVENUNK [place] Insurance:SELF PAY [facility] Number: Effective Repository Date:2018-05-27 11/20/2017 Don R Primary FILOMENA S [place] [id number] Insurance:[facility]ICARE [facility], PART A [facility] [id number] [address]Qcr: Number: Repository [id number] () Date:2017-11-20 11/20/2017 Secondary Don R [place] Insurance:[facility]: Community Hospital Number: [id number] [facility] [id number] Repository Date:1143-29-18FG [address], [place] [phone]: 11/20/2017 Tertiary NOT GIVENUNK [place] Insurance:SELF PAY [facility] Number: Effective Repository Date:2017-11-20 08/26/2017 Don R Primary FILOMENA S [place] [id number] Insurance:MEDICARE HENDERSONDOB: [facility], PART A [facility] [id number] [address]Htt: Number: Repository [id number] (HP) Date:2017-08-26 08/26/2017 Secondary Don R [place] Insurance:CASHIER ASSISTANT [facility] Number: [id number] Hospital [id number] Repository Date:5664-26-51RL [facility] [address], [place] [address]WP: 08/26/2017 Tertiary NOT GIVENUNK [place] Insurance:SELF PAY [facility] Number: Effective Repository Date:2017-08-26 08/21/2017 Don R Primary FILOMENA S [place] [id number] Insurance:MEDICARE HENDERSONDOB: [facility], PART A [facility] [id number] [address]Edr: Number: Repository [id number] (HP) Date:2017-07-29 08/21/2017 Secondary Don R [place] Insurance:CASHIER ASSISTANT Nara VisaDOB: Community Hospital Number: [id number] Hospital [id number] Repository Date:6978-76-60II [address], [place] [address]WP: 08/21/2017 Tertiary NOT GIVENUNK [place] Insurance:SELF PAY [facility] Number: Effective Repository Date:2017-07-29
== END ==
PROVIDERS: Family Provider Family Medicine Geriatric Medicine; PCP Family Medicine Geriatric Medicine; Visit Provider Family Medicine Geriatric Medicine
DX: E11.9 Type 2 diabetes mellitus without complications (principal); E55.9 Vitamin D deficiency, unspecified; I10 Essential (primary) hypertension
CPT/HCPCS: 36415; 80053; 82306; 84443; 85025

== ENCOUNTER → 2018-09-07 13:40 | Outpatient (CLI) | payer MEDICARE, OTHER, SELFPAY ==
[2018-09-07 17:23] LABS: Absolute Lymphocyte Count 1.01 X10^3/ul (0.83-4.51); Absolute Neutrophil Count 5.5 X10^3/uL (2.0-7.7); Basophil# 0.02 X10^3/uL; Basophil% 0.3 % (0-1); Eosinophil# 0.08 X10^3/uL; Eosinophils% 1.2 % (0-5); Hematocrit 43.7 % (37-47); Hemoglobin 13.7 g/dl (12.0-15.0); Lymphocyte # 1.01 X10^3/ul (4.0); Lymphocyte % 14.6 % (19-41); Mean Corp Hgb Conc 31.4 g/gl (32-36); Mean Corpuscular Volume 92.6 fL (81-99); Mean Platelet Vol. 11.7 fl (6.2-12.0); Monocyte% 4.3 % (0-10); Neutrophil # 5.49 X10^3/uL (2.7-7.7); Neutrophil % 79.3 % (47-70); Platelet Count 270 K/mm3 (150-450); RBC Distribution Width CV 14.1 % (11.6-14.6); RBC Distribution Width SD 48.1 fl (35.1-43.9); Red Blood Count 4.72 M/mm3 (4.2-5.4); White Blood Count 6.9 K/mm3 (4.4-11.0)
[2018-09-07 17:26] LABS: POSITIVE COUNT NO; POSITIVE DIFFERENTIAL NO; POSITIVE MORPHOLOGY NO
[2018-09-07 17:41] LABS: AST(SGOT) 20 U/L (15-37); Alanine Aminotransfer ALT/SGPT 29 U/L (13-56); Albumin, Serum 3.6 g/dL (3.2-5.0); Alkaline Phosphatase 65 U/L (45-117); Anion Gap 10 (5-15); BUN 19 mg/dL (7-18); BUN/Creat Ratio 21.1 RATIO (10-20); Calcium,Total 8.3 mg/dL (8.5-10.1); Chloride 101 mmol/L (98-107); EST Glomerular Filtration Rate 66 mL/min (>60); Est Glom Filt Rate - Afr Amer 79 mL/min (>60); Globulin 3.6 g/dL (2.2-4.2); Glucose 148 mg/dL (74-106); Potassium 3.6 mmol/L (3.5-5.1); Protein, Total 7.2 g/dL (6.4-8.2); Sodium Level 141 mmol/L (136-145)
--- NOTE | 2018-09-08 14:40 | CT_ITS ---
STUDY: CT BRAIN WITHOUT CONTRAST REASON FOR EXAM: Female, 72 years old. Delirium audible hallucinations. RADIATION DOSAGE (If Supplied By Facility): CTDIvol = ( 44.99 ) mGy, DLP = ( 745. ) mGycm TECHNIQUE: Transaxial CT imaging of the brain was performed without administration of intravenous contrast material. Individualized dose optimization techniques were used for this CT. COMPARISON: None. FINDINGS: Normal soft tissue structures. Normal calvarium. There is mild cerebral atrophy with widening of the extra-axial spaces and ventricular dilatation. There are areas of decreased attenuation within the white matter tracts of the supratentorial brain, consistent with microvascular disease changes. 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 Normal brainstem. Normal cerebellum. There is no intracranial hemorrhage. There are no findings of an acute ischemic infarction. Mild degree of mucosal thickening along the posterior aspect of the right maxillary sinus. CT/Brain/Head without Contrast IMPRESSION: Chronic involutional changes of the brain. Electronically Signed: Braeden Anderson, at 15:15 EDT , Service support ,
== END ==
PROVIDERS: Family Provider Family Medicine Geriatric Medicine; PCP Family Medicine Geriatric Medicine; Referring Provider Family Medicine Geriatric Medicine; Visit Provider Family Medicine Geriatric Medicine
DX: F05 Delirium due to known physiological condition (principal); N39.0 Urinary tract infection, site not specified
CPT/HCPCS: 36415; 70450; 80053; 84443; 85025; 87077; 87086; 87088; 87186

== ENCOUNTER → 2018-09-18 12:12 | Outpatient (CLI) | payer MEDICARE, OTHER, SELFPAY | PROVIDERS: Family Provider Family Medicine Geriatric Medicine; PCP Family Medicine Geriatric Medicine; Visit Provider Family Medicine Geriatric Medicine | DX: N39.0 Urinary tract infection, site not specified (principal) | CPT/HCPCS: 87086; 87088 ==

== ENCOUNTER 2018-09-21 02:04 | Emergency (ER) | payer MEDICARE, OTHER, SELFPAY ==
[2018-09-21 02:05] VITALS: BP 148/72; PULSE 73; RESP 18; TEMP 36.4; O2SAT 94; BMI 27.3
[2018-09-21 02:10] VITALS: RESP 18
--- NOTE | 2018-09-21 02:20 | ED.DCSUM_ITS ---
History of Present Illness Chief Complaint: Complaint Narrative: Stated she woke this evening and noticed there was some blood in her Aguila bag when she emptied it. This concerned her. She is had a Aguila placed a few days ago for a UTI with urinary retention. The bleeding has subsequently stopped. She wanted to make sure everything was okay. She has not seen any bleeding prior to today. No trauma. Current severity is resolved. Past Medical History - Allergies and Home Meds Allergies/Adverse Reactions: Allergies amoxicillin Allergy (Verified 01/14/15 21:05) Itching Penicillins Allergy (Verified 01/14/15 21:05) Itching Primary Care Physician: Mueksh Clark Chi, MD [Primary Care Provider] - Prior records reviewed: Yes Past Medical History: - - Reviewed Surgical History: noncontributory Lives: Spouse/ Significant Other Smoking Status: Never smoker Alcohol: None Drugs: None Review of Systems General: Denies: Chills, Fever, Sweats Eyes: Denies: Visual changes - bilaterally, Diplopia ENT: Denies: Rhinorrhea, Sore throat Cardiovascular: Denies: Chest pain, Palpitations Respiratory: Denies: Dyspnea, Cough, Dyspnea on exertion Gastrointestinal: Denies: Abdominal pain, Nausea, Vomiting, Diarrhea, Melena, Hematochezia Genitourinary: Reports: Hematuria. Denies: Dysuria, Frequency Musculoskeletal: Denies: Back pain, Extremity Pain Skin: Denies: Rash, Wounds Neurological: Denies: Headache, Weakness, Numbness Physical Exam Vital Signs/Narrative: Vital Signs Temp Pulse Resp BP Pulse Ox 09/21/18 02:10 18 09/21/18 02:05 97.6 F L 73 18 148/72 H 94 General: Well nourished, Well developed, No Acute Distress Head: Normocephalic, Atraumatic Eyes: Perrl, EOMI ENT: Moist mucous membranes, No rhinorrhea Neck: Supple, Nontender Cardiovascular: Regular rate, Regular rhythm, No murmurs Respiratory: No distress, CTA bilaterally, Chest nontender Abdomen: Soft, Nontender, Nondistended, Normal bowel sounds Back: Nontender, Normal Inspection Extremities: Nontender, No edema Skin: Normal color, No rash Neurological: Alert, Oriented x3, Cranial nerves II-XII grossly intact, Normal Strength, Normal Sensation Psychological: Normal affect, Normal Mood Diagnostic/Tx/Re-eval - Medical Decision Making Patient's Aguila bag shows no blood in it. It is full with urine. She is reassured. Could be traumatic while she was sleeping perhaps it pulled on her urethra. Nonetheless it is subsequently cleared. I do not feel she needs lab work or imaging. She has a follow-up with Dr. Clark today. ED Disposition - Plan for ED Patient: Disposition: [facility] Diagnosis: Hematuria due to cystitis Instructions: What is Hematuria? Referrals: Mukesh Clark Chi, MD [Primary Care Provider] -
[2018-09-21 02:26] VITALS: RESP 16
== END 2018-09-21 02:29 | disposition home or self-care (01) ==
LOC: ED 02:28
PROVIDERS: Emergency Provider Emergency Medicine; Family Provider Family Medicine Geriatric Medicine; PCP Family Medicine Geriatric Medicine
DX: N30.91 Cystitis, unspecified with hematuria (principal)
CPT/HCPCS: 99282

== ENCOUNTER 2018-09-25 18:22 | Inpatient (IN) | payer MEDICARE, OTHER, SELFPAY ==
[2018-09-25] VITALS (8 sets, daily range): BP systolic 104–163; BP diastolic 58–60; PULSE 60–81; RESP 14–18; TEMP 36.5–36.6; O2SAT 93; BMI 26.8; BMI 26.9
--- NOTE | 2018-09-25 18:44 | PCM.HP.STD ---
Problem List (1) Encephalopathy acute Status: Acute (2) Elevated troponin Status: Acute History of Present Illness Date of Admission: 09/25/18 Chief Complaint: confusion The patient is a 72 year old F presents [facility] with 1 day history of confusion. Patient was lethargic and brought to outside hospital. They did an extensive workup including head CT which was all unremarkable. Patient did have a slightly elevated troponin of 0.3. But no evidence of any myocardial infarction on EKG. Patient had been on prednisone 5 mg daily for 20 some years and was stopped about 5 days ago abruptly without any additional taper. Patient did receive hydrocortisone at the outside facility. Patient has remained lethargic when she was transferred over here but was able to follow some commands and answer some questions. No family is present at bedside currently. [] Past Medical History Medical History: Medical History (Last Updated 09/25/18 @ 18:46 by Victor Manuel Duque DO) HTN (hypertension) I10 Allergies amoxicillin Allergy (Verified 01/14/15 21:05) Itching Penicillins Allergy (Verified 01/14/15 21:05) Itching Home Medications: Ambulatory Orders Medication Instructions Recorded Atenolol/Chlorthalidone 1 each PO DAILY 01/14/15 [Atenolol-Chlorthalidone 50-25] Hydrocodone Bitart/Apap 5-325 1 - 2 tablet PO Q4H PRN PRN #12 01/14/15 [Chester 5/325] tablet Potassium Chloride [Klor-Con M10] 30 meq PO TID 01/14/15 Synthroid 01/14/15 predniSONE tablet 5 mg PO DAILY 01/14/15 Surgical History: noncontributory Smoking Status: Never smoker - *Family History Maternal History Items: Unknown Review of Systems Comment: Review of systems is unreliable as patient is answering yes to every single question and would not elaborate further when further questioned. Additionally, unable to obtain past medical past surgical social history and family history and is she is very lethargic and not a reliable historian at this time. VTE Information - Inpt Only VTE Present on Admission: No VTE Mechan Device Prophylaxis: None VTE Pharm Prophylaxis ordered?: Yes Patient Problems: Active and Suspected Problems Encephalopathy acute (Acute) Elevated troponin (Acute) - Physical Exam General: Alert, Oriented x3, Confused, - - Lethargic HEENT: Atraumatic, PERRLA, EOMI, Normocephalic Oral: Moist Mucosa, No Gingival or Mucosal Lesions/ Ulcerations Neck: No Nodes, Thyroid Normal Size and Texture Lungs: Clear to auscultation, Normal air movement, No rhonchi, No wheeze Cardiovascular: Regular rate, Regular Rhythm, Normal S1, Normal S2, No murmurs Abdomen: Bowel Sounds Present, Soft, Non Tender, Non-Distended, No Hepato-splenomegaly Extremities: No edema, No Calf Tenderness Skin: No rashes, No breakdown Musculoskeletal: No Tenderness to Palpation of Joints or Extremities, No Muscle Wasting Neurological: Cranial nerves II-XII grossly intact, Motor Exam 5/5 strength throughout Psych/Mental Status: - - Confused, lethargic. Body Mass Index (BMI) 27.3 From [facility]: CBC showed white count of 6.1, hemoglobin 13 and platelets of 219. BMP: Sodium 141, potassium 3.5, bicarb 31 and creatinine of 0.7. ABG showed pH of 7.447, PCO2 35 and PO2 of 58. Urinalysis was negative TSH was normal Chest x-ray was read as normal Head CT showed no acute process Lactic acid was normal Ammonia was normal Troponin was 0.3 EKG reviewed and showed no changes. Assessment/Plan All Active Problems Encephalopathy acute (Acute) Elevated troponin (Acute) 1. Encephalopathy: No focal deficits other than just global confusion and lethargy at this time Presumed metabolic We will hold the patient's Chester though I do not feel that this was an overuse of her Chester. Patient did receive hydrocortisone at the outside hospital in case of this was an adrenal crisis. Unclear if any of this component is related with sudden withdrawal of her prednisone, even though was only 5 mg is contributing to this. I will put the patient on prednisone 40 mg starting tomorrow and that can be tapered down to her 5 mg and then after that to be tapered off. Will need to find out further why she is on chronic prednisone. Check urine drug screen 2. Elevated troponins Nursing only high but out of normal range Cycle troponins Start aspirin Check an echocardiogram Check fasting lipid panel 3. DVT prophylaxis with Lovenox Code Visit Inpatient E&M: 79885 Init Hosp L3
--- NOTE | 2018-09-25 18:48 | ECHOD_ITS ---
Reason For Study: Elevated Troponin Procedure This was a 2D Doppler, Color Flow transthoracic echocardiogram. The exam was of adequate technical quality. Exam performed portable in patient room. Left Ventricle Normal LV size. Left ventricular systolic function is normal. The estimated ejection fraction is 65 %. Diastolic function is indeterminate. No regional wall motion abnormalities noted. Right Ventricle Normal RV size. Normal systolic function. Atria The left atrium is mildly enlarged. Normal right atrium. No doppler evidence for ASD. Mitral Valve There is no mitral annular calcification. Mild diffuse mitral valve thickening. Mild mitral valve prolapse. Mild (1+) mitral valve insufficiency. Tricuspid Valve Normal tricuspid valve. Mild tricuspid valve insufficiency. Right ventricular systolic pressure estimated to be 34 mmHg. Aortic Valve Trisinus/trileaflet aortic valve. Mild focal aortic valve calcification. Trivial aortic valve insufficiency. Pulmonic Valve The pulmonic valve is not well visualized. Trivial pulmonic valve insufficiency. Great Vessels Normal sized aortic root. Pericardium/Pleural No pericardial effusion. MMode/2D Measurements & Calculations LVIDd: 4.4 cm IVSd: 1.1 cm Ao root diam: 3.5 cm LVIDs: 2.2 cm LVPWd: 0.89 cm RVDd: 3.9 cm FS: 48.7 % LAV(MOD-bp): 25.8 ml LVAd ap4: 18.9 cm2 SV(MOD-sp4): 29.5 ml LAV(MOD-bp) Indexed: 16.0 ml/m2 EDV(MOD-sp4): 44.8 ml LAV(MOD-sp2): 24.8 ml EDV(sp4-el): 45.3 ml LAV(MOD-sp4): 26.0 ml LVAs ap4: 9.7 cm2 ESV(MOD-sp4): 15.4 ml ESV(sp4-el): 15.1 ml EF(MOD-sp4): 65.7 % EF(sp4-el): 66.7 % SV(sp4-el): 30.2 ml LA A4 area: 12.0 cm2 LA dimension(2D): 3.6 cm RA A4 area: 14.3 cm2 Doppler Measurements & Calculations MV E max rangel: 85.2 cm/sec Lat Peak E' Rangel: 7.6 cm/sec Med Peak E' Rangel: 8.3 cm/sec MV A max rangel: 123.5 cm/sec E/E' lat: 11.3 E/E' med: 10.3 MV E/A: 0.69 Ao V2 max: 176.7 cm/sec AI max rangel: 384.5 cm/sec LV V1 max: 120.2 cm/sec Ao max P.5 mmHg AI max P.1 mmHg LV V1 max P.8 mmHg Ao V2 mean: 117.9 cm/sec Ao mean P.2 mmHg AI dec slope: 227.3 cm/sec2 Ao V2 VTI: 38.5 cm AI P1/2t: 495.4 msec PA V2 max: 92.5 cm/sec TR max rangel: 278.9 cm/sec TR max P.1 mmHg Interpretation Summary Left ventricular systolic function is normal. The estimated ejection fraction is 65 %. The left atrium is mildly enlarged. Mild diffuse mitral valve thickening. Mild mitral valve prolapse. Mild (1+) mitral valve insufficiency. Mild tricuspid valve insufficiency. Mild focal aortic valve calcification. Trivial aortic valve insufficiency. Trivial pulmonic valve insufficiency. Right ventricular systolic pressure estimated to be 34 mmHg. Diastolic function is indeterminate. Ordering Physician: Victor Manuel Duque Referring Physician: Mukesh Clark Chi Performed By: Carola Barron, ELLA, RVT
--- NOTE | 2018-09-25 18:49 | HP.PCM_ITS ---
Problem List (1) Encephalopathy acute Status: Acute (2) Elevated troponin Status: Acute History of Present Illness Date of Admission: 09/25/18 Chief Complaint: confusion The patient is a 72 year old F presents [facility] with 1 day history of confusion. Patient was lethargic and brought to outside hospital. They did an extensive workup including head CT which was all unremarkable. Patient did have a slightly elevated troponin of 0.3. But no evidence of any myocardial infarction on EKG. Patient had been on prednisone 5 mg daily for 20 some years and was stopped about 5 days ago abruptly without any additional taper. Patient did receive hydrocortisone at the outside facility. Patient has remained lethargic when she was transferred over here but was able to follow some commands and answer some questions. No family is present at bedside currently. [] Past Medical History Medical History: Medical History (Last Updated 09/25/18 @ 18:46 by Victor Manuel Duque DO) HTN (hypertension) I10 Allergies amoxicillin Allergy (Verified 01/14/15 21:05) Itching Penicillins Allergy (Verified 01/14/15 21:05) Itching Home Medications: Ambulatory Orders Medication Instructions Recorded Atenolol/Chlorthalidone 1 each PO DAILY 01/14/15 [Atenolol-Chlorthalidone 50-25] Hydrocodone Bitart/Apap 5-325 1 - 2 tablet PO Q4H PRN PRN #12 01/14/15 [[place] 5/325] tablet Potassium Chloride [Klor-Con M10] 30 meq PO TID 01/14/15 Synthroid 01/14/15 predniSONE tablet 5 mg PO DAILY 01/14/15 Surgical History: noncontributory Smoking Status: Never smoker - *Family History Maternal History Items: Unknown Review of Systems Comment: Review of systems is unreliable as patient is answering yes to every single question and would not elaborate further when further questioned. Additionally, unable to obtain past medical past surgical social history and family history and is she is very lethargic and not a reliable historian at this time. VTE Information - Inpt Only VTE Present on Admission: No VTE Mechan Device Prophylaxis: None VTE Pharm Prophylaxis ordered?: Yes Patient Problems: Active and Suspected Problems Encephalopathy acute (Acute) Elevated troponin (Acute) - Physical Exam General: Alert, Oriented x3, Confused, - - Lethargic HEENT: Atraumatic, PERRLA, EOMI, Normocephalic Oral: Moist Mucosa, No Gingival or Mucosal Lesions/ Ulcerations Neck: No Nodes, Thyroid Normal Size and Texture Lungs: Clear to auscultation, Normal air movement, No rhonchi, No wheeze Cardiovascular: Regular rate, Regular Rhythm, Normal S1, Normal S2, No murmurs Abdomen: Bowel Sounds Present, Soft, Non Tender, Non-Distended, No Hepato- splenomegaly Extremities: No edema, No Calf Tenderness Skin: No rashes, No breakdown Musculoskeletal: No Tenderness to Palpation of Joints or Extremities, No Muscle Wasting Neurological: Cranial nerves II-XII grossly intact, Motor Exam 5/5 strength throughout Psych/Mental Status: - - Confused, lethargic. Body Mass Index (BMI) 27.3 From [facility]: CBC showed white count of 6.1, hemoglobin 13 and platel ets of 219. BMP: Sodium 141, potassium 3.5, bicarb 31 and creatinine of 0.7. ABG showed pH of 7.447, PCO2 35 and PO2 of 58. Urinalysis was negative TSH was normal Chest x-ray was read as normal Head CT showed no acute process Lactic acid was normal Ammonia was normal Troponin was 0.3 EKG reviewed and showed no changes. Assessment/Plan All Active Problems Encephalopathy acute (Acute) Elevated troponin (Acute) 1. Encephalopathy: * No focal deficits other than just global confusion and lethargy at this time * Presumed metabolic * We will hold the patient's [place] though I do not feel that this was an overuse of her [place]. * Patient did receive hydrocortisone at the outside hospital in case of this was an adrenal crisis. Unclear if any of this component is related with sudden withdrawal of her prednisone, even though was only 5 mg is contributing to this. * I will put the patient on prednisone 40 mg starting tomorrow and that can be tapered down to her 5 mg and then after that to be tapered off. Will need to find out further why she is on chronic prednisone. * Check urine drug screen 2. Elevated troponins * Nursing only high but out of normal range * Cycle troponins * Start aspirin * Check an echocardiogram * Check fasting lipid panel 3. DVT prophylaxis with Lovenox Code Visit Inpatient E&M: 56578 Init Hosp L3
[2018-09-25] MEDS: 0.9% Normal Saline 1,000 ML 150 ML IV (20:10)
[2018-09-25] MEDS: Aspirin 81 MG TAB.CHEW 324 MG PO (20:12)
[2018-09-25] MEDS: 0.9% NaCl Peripheral Flush Adult/Peds IV (22:38)
[2018-09-26] VITALS (11 sets, daily range): BP systolic 104–130; BP diastolic 53–82; PULSE 57–101; RESP 14–18; TEMP 36.6–37.2; O2SAT 93–96
[2018-09-26 05:58] LABS: Hematocrit 35.5 % (37-47); Hemoglobin 11.5 g/dl (12.0-15.0); Mean Corp Hgb Conc 32.4 g/gl (32-36); Mean Corpuscular Hgb 28.6 pg (27.0-32.0); Mean Corpuscular Volume 88.3 fL (81-99); Mean Platelet Vol. 10.5 fl (6.2-12.0); Platelet Count 194 K/mm3 (150-450); RBC Distribution Width CV 13.7 % (11.6-14.6); RBC Distribution Width SD 43.5 fl (35.1-43.9); Red Blood Count 4.02 M/mm3 (4.2-5.4); Scan Indicated on CBC? Y/N NO; White Blood Count 3.7 K/mm3 (4.4-11.0)
[2018-09-26 06:14] LABS: AST(SGOT) 21 U/L (15-37); Alanine Aminotransfer ALT/SGPT 15 U/L (13-56); Albumin, Serum 2.7 g/dL (3.2-5.0); Alkaline Phosphatase 58 U/L (45-117); Anion Gap 6 (5-15); BUN 15 mg/dL (7-18); BUN/Creat Ratio 21.8 RATIO (10-20); Calcium,Total 7.4 mg/dL (8.5-10.1); Chloride 110 mmol/L (98-107); Cholesterol 157 mg/dL (200); Creatinine, Serum 0.69 mg/dL (0.55-1.02); EST Glomerular Filtration Rate 90 mL/min (>60); Est Glom Filt Rate - Afr Amer 108 mL/min (>60); Globulin 2.7 g/dL (2.2-4.2); Glucose 85 mg/dL (74-106); High Density Lipoprotein 35 mg/dL; Potassium 3.4 mmol/L (3.5-5.1); Protein, Total 5.4 g/dL (6.4-8.2); Sodium Level 143 mmol/L (136-145); Triglycerides 146 mg/dL; Very Low Density Lipoprotein 29 mg/dL (5-40)
[2018-09-26 06:56] LABS: Amphetamine Urine VISTA NEGATIVE (<1000 ng/mL); Barbiturate Urine VISTA NEGATIVE (< 200 ng/mL); Benzodiazepine Urine VISTA NEGATIVE (< 200 ng/mL); Cocaine Urine VISTA NEGATIVE (< 300 ng/mL); Ecstacy Urine VISTA NEGATIVE (< 500 ng/mL); Methadone Urine VISTA NEGATIVE (< 300 ng/mL); PCP Urine VISTA NEGATIVE (< 25 ng/mL); THC Urine VISTA NEGATIVE (< 50 ng/mL); Vista UDS pH Range 5
[2018-09-26] MEDS: Aspirin E.C. 81 MG Tablet PO (09:20)
[2018-09-26] MEDS: predniSONE 20 MG Tablet 40 MG PO (09:20)
[2018-09-26] MEDS: Atenolol 50 MG Tablet PO (09:21)
[2018-09-26] MEDS: Chlorthalidone 50 MG Tablet 25 MG PO (09:21)
[2018-09-26] MEDS: Enoxaparin 40 MG/0.4 ML Syringe SC (09:21)
--- NOTE | 2018-09-26 11:56 | PCM.PN.HOSP ---
Patient Problems: Active and Suspected Problems (Last Updated 09/25/18 @ 18:46 by Victor Manuel Duque DO) Encephalopathy acute (Acute) Elevated troponin (Acute) Subjective: History taken from the and . Patient had burning micturition and UTI about 10 days ago and was given antibiotic Cipro for [address] Clark and last Friday, 09/21 she was told that the UTI is resolved. She got transferred from [facility] for altered mental status for about 2 days. She was also recently started on Seroquel 25 mg on the top of chronic Cymbalta. She also had prednisone 5 mg stopped suddenly after she has been for more than 10 years. Currently, denies fever or chills. No recent URI/abdominal pain. Denies change in bowel movement. Serial troponin was done found elevated 0.2, 0.192 and 0.678. Patient denies any recent chest pain or anginal-like symptoms except gets short of breath on mild exertion. EKG normal sinus rhythm at 90 bpm with PVC on 09/25. Vitals/I&O's: Vital Signs Temp Pulse Resp BP Pulse Ox 98.3 F 78 14 124/58 H 93 09/26/18 09:15 09/26/18 09:15 09/26/18 09:15 09/26/18 09:15 09/26/18 09:15 Oxygen Delivery Method Room Air Weight: 151 lb 10.848 oz Body Mass Index (BMI) 26.9 Intake and Output for Last 24 Hours 09/24/18 09/25/18 09/26/18 23:59 23:59 23:59 Intake Total 942 / 942 468 / 468 Balance 942 / 942 468 / 468 General: Alert, Oriented x3, Cooperative HEENT: Atraumatic, PERRLA, EOMI, Normocephalic Neck: Supple, No JVD, Negative Carotid Bruits Lungs: Normal air movement, No rhonchi, No wheeze, No rales, Diminished Cardiovascular: Regular rate, Regular Rhythm, Normal S1, Normal S2, No murmurs Abdomen: Bowel Sounds Present, Soft, Non Tender, Non-Distended Extremities: No edema, Capillary Refill Less than 3 Seconds Skin: No rashes, No breakdown Musculoskeletal: No Tenderness to Palpation of Joints or Extremities, Arthritic Changes Lymphatic: No Cervical, Supraclavicular, or Inguinal Adenopathy Neurological: Cranial nerves II-XII grossly intact, Deep Tendon Reflexes 2+/4 and Symmetrical, Neuro grossly intact Psych/Mental Status: Normal Affect, Appropriate Laboratory Results 09/25/18 19:18: Troponin I 0.205 H 09/25/18 21:58: Troponin I 0.192 H 09/26/18 01:20: Troponin I 0.678 H* 09/26/18 05:50: WBC 3.7 L, RBC 4.02 L, Hgb 11.5 L, Hct 35.5 L, MCV 88.3, MCH 28.6, MCHC 32.4, RDW 13.7, RDW Differential 43.5, Plt Count 194, MPV 10.5 09/26/18 05:50: Sodium 143, Potassium 3.4 L, Chloride 110 H, Carbon Dioxide 27.0, Anion Gap 6, BUN 15, Creatinine 0.69, Estim Creat Clear Calc 43.30, Est GFR (MDRD) Af Amer 108, Est GFR (MDRD) Non-Af 90, BUN/Creatinine Ratio 21.8 H, Glucose 85, Calcium 7.4 L, Total Bilirubin 0.50, AST 21, ALT 15, Alkaline Phosphatase 58, Total Protein 5.4 L, Albumin 2.7 L, Globulin 2.7, Albumin/Globulin Ratio 1.0, Triglycerides 146, Cholesterol 157, LDL Cholesterol 93, VLDL Cholesterol 29, HDL Cholesterol 35 L 09/26/18 06:30: Urine Opiates Screen NEGATIVE, Urine Methadone Screen NEGATIVE, Ur Barbiturates Screen NEGATIVE, Ur Phencyclidine Scrn NEGATIVE, Ur Amphetamines Screen NEGATIVE, U Methamphetamin-MDMA NEGATIVE, U Benzodiazepines Scrn NEGATIVE, Urine Cocaine Screen NEGATIVE, U Cannabinoids Screen NEGATIVE, Ur Drug Screen Comment Current Medications Acetaminophen (Tylenol) 650 mg PO Q6H PRN PRN PRN Reason: Mild Pain (1-3)/Temp > 100.7 F Aspirin (Ecotrin) 81 mg PO DAILY@0800 [facility] Last Admin: 09/26/18 09:20 Dose: 81 mg Atenolol (Tenormin (Beta Edgar)) 50 mg PO DAILY [facility] Last Admin: 09/26/18 09:21 Dose: 50 mg Chlorthalidone (Hygroton) 25 mg PO DAILY [facility] Last Admin: 09/26/18 09:21 Dose: 25 mg Enoxaparin Sodium (Lovenox) 40 mg SC DAILY@1000 [facility] Last Admin: 09/26/18 09:21 Dose: 40 mg Magnesium Hydroxide (Milk Of Magnesia) 30 ml PO DAILY PRN PRN Reason: Constipation Nitroglycerin (Nitrostat) 0.4 mg SUBLINGUAL Q5M PRN PRN Reason: CHEST PAIN Ondansetron HCl (Zofran) 4 mg IV Q8H PRN PRN PRN Reason: NAUSEA Potassium Chloride (K-Dur) 30 meq PO TIDCM [facility] Last Admin: 09/26/18 11:21 Dose: 30 meq Prednisone () 40 mg PO DAILY@0800 [facility] Last Admin: 09/26/18 09:20 Dose: 40 mg Sodium Chloride () 5 - 15 ml IV UD PRN PRN Reason: SALINE FLUSH Last Admin: 09/25/18 22:38 Dose: 10 ml Medical Necessity - Tobacco Use Smoking Status: Never smoker Tobacco Use: Non-smoker Assessment/Plan All Active Problems (Last Updated 09/25/18 @ 18:46 by Victor Manuel Duque DO) Encephalopathy acute (Acute) Elevated troponin (Acute) This 72-year-old female with history of hypertension, hypothyroidism and anxiety and depression was admitted from [place] [facility] for acute encephalopathy, confusion and disorientation for 2 days. The patient denies fever or chills. No recent URI/abdominal pain. Denies change in bowel movement. Recently completed 1 week of Cipro for UTI on 09/21/2018. Patient denies any recent chest pain or anginal-like symptoms except gets short of breath on mild exertion. EKG normal sinus rhythm at 90 bpm with PVC on 09/25. Serial troponin was done found elevated 0.2, 0.192 and 0.678. 1. Acute encephalopathy: Patient did not have focal deficits other than just global confusion and lethargy at time of admission: Resolved Presumed metabolic encephalopathy or drug-induced from Seroquel which was recently started. Seroquel, [place]. Patient received hydrocortisone at the outside hospital for presumed adrenal crisis. Unclear if any of this component is related with sudden withdrawal of her prednisone, even though was only 5 mg is contributing to this. patient on prednisone 40 mg and that can be tapered down to her 5 mg and then after that to be tapered off. Not clear why patient is on chronic prednisone. U tox negative 2. Elevated troponins, most probably demand supply mismatch ischemia Serial troponins are elevated, 0.2, 0.192 and 0.678. Repeat EKG does not show change from [place] [facility] EKG. Normal sinus rhythm at 84 bpm. No chest pain. 2D echo ordered. Cardiology consult for further opinion and recommendation 3. DVT prophylaxis with Lovenox Code Visit Inpatient E&M: 89179 Subs Hosp L3
--- NOTE | 2018-09-26 12:04 | EKG12_ITS ---
Test Reason : ELEVATED TROPONIN Blood Pressure : / mmHG Vent. Rate : 084 BPM Atrial Rate : 084 BPM P-R Int : 154 ms QRS Dur : 080 ms QT Int : 390 ms P-R-T Axes : 058 060 022 degrees QTc Int : 460 ms Sinus rhythm with Fusion complexes Poor R Wave Progression Abnormal ECG Confirmed by DOREEN MCMULLEN, AJ ([id number]), content editor MIKEY NAVARRO ([id number]) on 10/05/2018 11:30:44 AM Referred By: Victor Manuel Duque Confirmed By:AJ LOGAN MD
--- NOTE | 2018-09-26 12:05 | PN_ITS ---
Patient Problems: Active and Suspected Problems (Last Updated 09/25/18 @ 18:46 by Victor Manuel Duque DO) Encephalopathy acute (Acute) Elevated troponin (Acute) Subjective: History taken from the and . Patient had burning micturition and UTI about 10 days ago and was given antibiotic Cipro for [address] Clark and last Friday, 09/21 she was told that the UTI is resolved. She got transferred from [facility] for altered mental status for about 2 days. She was also recently started on Seroquel 25 mg on the top of chronic Cymbalta. She also had prednisone 5 mg stopped suddenly after she has been for more than 10 years. Currently, denies fever or chills. No recent URI/abdominal pain. Denies change in bowel movement. Serial troponin was done found elevated 0.2, 0.192 and 0.678. Patient denies any recent chest pain or anginal-like symptoms except gets short of breath on mild exertion. EKG normal sinus rhythm at 90 bpm with PVC on 09/25. Vitals/I&O's: Vital Signs Temp Pulse Resp BP Pulse Ox 98.3 F 78 14 124/58 H 93 09/26/18 09:15 09/26/18 09:15 09/26/18 09:15 09/26/18 09:15 09/26/18 09:15 Oxygen Delivery Method Room Air Weight: 151 lb 10.848 oz Body Mass Index (BMI) 26.9 Intake and Output for Last 24 Hours 09/24/18 09/25/18 09/26/18 23:59 23:59 23:59 Intake Total 942 / 942 468 / 468 Balance 942 / 942 468 / 468 General: Alert, Oriented x3, Cooperative HEENT: Atraumatic, PERRLA, EOMI, Normocephalic Neck: Supple, No JVD, Negative Carotid Bruits Lungs: Normal air movement, No rhonchi, No wheeze, No rales, Diminished Cardiovascular: Regular rate, Regular Rhythm, Normal S1, Normal S2, No murmurs Abdomen: Bowel Sounds Present, Soft, Non Tender, Non-Distended Extremities: No edema, Capillary Refill Less than 3 Seconds Skin: No rashes, No breakdown Musculoskeletal: No Tenderness to Palpation of Joints or Extremities, Arthritic Changes Lymphatic: No Cervical, Supraclavicular, or Inguinal Adenopathy Neurological: Cranial nerves II-XII grossly intact, Deep Tendon Reflexes 2+/4 and Symmetrical, Neuro grossly intact Psych/Mental Status: Normal Affect, Appropriate Laboratory Results 09/25/18 19:18: Troponin I 0.205 H 09/25/18 21:58: Troponin I 0.192 H 09/26/18 01:20: Troponin I 0.678 H* 09/26/18 05:50: WBC 3.7 L, RBC 4.02 L, Hgb 11.5 L, Hct 35.5 L, MCV 88.3, MCH 28.6, MCHC 32.4, RDW 13.7, RDW Differential 43.5, Plt Count 194, MPV 10.5 09/26/18 05:50: Sodium 143, Potassium 3.4 L, Chloride 110 H, Carbon Dioxide 27.0, Anion Gap 6, BUN 15, Creatinine 0.69, Estim Creat Clear Calc 43.30, Est GFR (MDRD) Af Amer 108, Est GFR (MDRD) Non-Af 90, BUN/Creatinine Ratio 21.8 H, Glucose 85, Calcium 7.4 L, Total Bilirubin 0.50, AST 21, ALT 15, Alkaline Phosphatase 58, Total Protein 5.4 L, Albumin 2.7 L, Globulin 2.7, Albumin/Globulin Ratio 1.0, Triglycerides 146, Cholesterol 157, LDL Cholesterol 93, VLDL Cholesterol 29, HDL Cholesterol 35 L 09/26/18 06:30: Urine Opiates Screen NEGATIVE, Urine Methadone Screen NEGATIVE, Ur Barbiturates Screen NEGATIVE, Ur Phencyclidine Scrn NEGATIVE, Ur Amphetamines Screen NEGATIVE, U Methamphetamin-MDMA NEGATIVE, U Benzodiazepines Scrn NEGATIVE, Urine Cocaine Screen NEGATIVE, U Cannabinoids Screen NEGATIVE, Ur Drug Screen Comment Current Medications Acetaminophen (Tylenol) 650 mg PO Q6H PRN PRN PRN Reason: Mild Pain (1-3)/Temp > 100.7 F Aspirin (Ecotrin) 81 mg PO DAILY@0800 [facility] Last Admin: 09/26/18 09:20 Dose: 81 mg Atenolol (Tenormin (Beta Edgar)) 50 mg PO DAILY [facility] Last Admin: 09/26/18 09:21 Dose: 50 mg Chlorthalidone (Hygroton) 25 mg PO DAILY [facility] Last Admin: 09/26/18 09:21 Dose: 25 mg Enoxaparin Sodium (Lovenox) 40 mg SC DAILY@1000 [facility] Last Admin: 09/26/18 09:21 Dose: 40 mg Magnesium Hydroxide (Milk Of Magnesia) 30 ml PO DAILY PRN PRN Reason: Constipation Nitroglycerin (Nitrostat) 0.4 mg SUBLINGUAL Q5M PRN PRN Reason: CHEST PAIN Ondansetron HCl (Zofran) 4 mg IV Q8H PRN PRN PRN Reason: NAUSEA Potassium Chloride (K-Dur) 30 meq PO TIDCM [facility] Last Admin: 09/26/18 11:21 Dose: 30 meq Prednisone () 40 mg PO DAILY@0800 [facility] Last Admin: 09/26/18 09:20 Dose: 40 mg Sodium Chloride () 5 - 15 ml IV UD PRN PRN Reason: SALINE FLUSH Last Admin: 09/25/18 22:38 Dose: 10 ml Medical Necessity - Tobacco Use Smoking Status: Never smoker Tobacco Use: Non-smoker Assessment/Plan All Active Problems (Last Updated 09/25/18 @ 18:46 by Victor Manuel Duque DO) Encephalopathy acute (Acute) Elevated troponin (Acute) This 72-year-old female with history of hypertension, hypothyroidism and anxiety and depression was admitted from [place] [facility] for acute encephalopathy, confusion and disorientation for 2 days. The patient denies fever or chills. No recent URI/abdominal pain. Denies change in bowel movement. Recently completed 1 week of Cipro for UTI on 09/21/2018. Patient denies any recent chest pain or anginal-like symptoms except gets short of breath on mild exertion. EKG normal sinus rhythm at 90 bpm with PVC on 09/25. Serial troponin was done found elevated 0.2, 0.192 and 0.678. 1. Acute encephalopathy: * Patient did not have focal deficits other than just global confusion and lethargy at time of admission: Resolved * Presumed metabolic encephalopathy or drug-induced from Seroquel which was recently started. * Seroquel, [place]. * Patient received hydrocortisone at the outside hospital for presumed adrenal crisis. Unclear if any of this component is related with sudden withdrawal of her prednisone, even though was only 5 mg is contributing to this. * patient on prednisone 40 mg and that can be tapered down to her 5 mg and then after that to be tapered off. Not clear why patient is on chronic prednisone. * U tox negative 2. Elevated troponins, most probably demand supply mismatch ischemia * Serial troponins are elevated, 0.2, 0.192 and 0.678. Repeat EKG does not show change from [place] [facility] EKG. Normal sinus rhythm at 84 bpm. No chest pain. 2D echo ordered. Cardiology consult for further opinion and recommendation 3. DVT prophylaxis with Lovenox Code Visit Inpatient E&M: 71595 [facility] Hosp L3
--- NOTE | 2018-09-26 17:11 | CON.PCM_ITS ---
Problem List (1) NSTEMI (non-ST elevated myocardial infarction) Status: Acute (2) HTN (hypertension) Status: Chronic (3) Encephalopathy acute Status: Acute Reason for Consult Date of Consultation: 09/26/18 History of Present Illness: The patient is a 72 year old female who is referred for evaluation of abnormal troponin I levels compatible with a non-ST segment elevation NJ superimposed upon a history of hypertension and a recent diagnosis of encephalopathy. She states she has a long-standing history of fibromyalgia. She has been treated with corticosteroid therapy. She is also been on some antidepressant . She notes that recently both these medications were abruptly discontinued. She does not recall what happened that led her to her hospitalization. Her family member who is with her states that she was noted to be out of it . She was not responding appropriately. She was taken to their local emergency department. There was concerns of underlying encephalopathy of uncertain etiology. However during her emergency department evaluation a troponin I level was obtained which was reported as indeterminate. An ECG demonstrated sinus rhythm with poor R wave progression. She was subsequently transferred to [facility] for further evaluation and care. During her evaluation and care she was treated with additional corticosteroid therapy. She began to respond and became more responsive. At the present time she still does not recall the events that led to her hospitalization. She does recall having episodes of chest discomfort and shortness of breath/dyspnea. She states these are in her central chest area. She does not recall radiation. She does not recall nausea, emesis, or diaphoresis. She states she has lost consciousness in the past but not recently. There is been no orthopnea or PND or worsening peripheral pitting edema. She does not recall any previous cardiovascular evaluation in the past. She has had additional troponin I levels which have increased. Her ECG is demonstrated sinus rhythm with poor R wave progression. She is undergone further evaluation with a transthoracic echocardiogram. The results are as noted below. [] Past Medical History Allergies/Adverse Reactions: Allergies amoxicillin Allergy (Verified 01/14/15 21:05) Itching Latex, Natural Rubber Allergy (Verified 09/25/18 20:00) Unknown Penicillins Allergy (Verified 01/14/15 21:05) Itching Home Medications: Ambulatory Orders Medication Instructions Recorded Atenolol/Chlorthalidone 1 each PO DAILY 01/14/15 [Atenolol-Chlorthalidone 50-25] Potassium Chloride [Klor-Con M10] 20 meq PO BID 01/14/15 Duloxetine HCl 30 mg PO QHS 09/25/18 Levothyroxine Sodium 112 mcg PO DAILY 09/25/18 Quetiapine Fumarate 1 tab PO QHS 09/25/18 Past Medical History (Chronic Problems): Chronic Problems (Last Updated 09/25/18 @ 18:46 by Victor Manuel Duque DO) HTN (hypertension) (Chronic) Surgical History: noncontributory - *Family History Maternal History Items: Unknown Smoking Status: Never smoker Tobacco Use: Non-smoker Alcohol: None Drugs: None Review of Systems - Review of Systems General: Denies: Fever, Night Sweats, Fatigue Cardiovascular: Reports: Chest Discomfort, Shortness of Breath. Denies: Orthopnea, PND, Peripheral Edema, Palpitations, Lightheadedness, Dizziness, Near Syncope, Syncope Respiratory: Reports: Shortness of Breath. Denies: Cough, Sputum Production, Hemoptysis Gastrointestinal: Denies: Hematemesis, Hematochezia, Melena Genitourinary: Denies: Dysuria, Hematuria Neurological: Reports: Confusion Subjectve: This is a 72-year-old white female who appears resting comfortably at the moment in no acute distress. Objective: Vital Signs Temp Pulse Resp BP Pulse Ox 99.0 F 80 14 110/53 L 96 09/26/18 15:15 09/26/18 15:15 09/26/18 15:15 09/26/18 15:15 09/26/18 15:15 Oxygen Delivery Method Room Air Weight: 151 lb 10.848 oz Body Mass Index (BMI) 26.9 Intake and Output for Last 24 Hours 09/24/18 09/25/18 09/26/18 23:59 23:59 23:59 Intake Total 942 / 942 828 / 828 Balance 942 / 942 828 / 828 General: Awake, Alert, Oriented x 3, Cooperative, No Acute Distress HEENT: Atraumatic, Normocephalic Oral: Moist Mucosa Neck: Supple, Good ROM, No JVD Lungs: Clear to auscultation Cardiovascular: Regular Rhythm, Normal S1, Normal S2 Vascular: No Carotid Bruits Abdomen: Bowel Sounds Present, Soft, Non Tender Extremities: No edema Psych/Mental Status: Appropriate 09/25/18 19:18: Troponin I 0.205 H 09/25/18 21:58: Troponin I 0.192 H 09/26/18 01:20: Troponin I 0.678 H* 09/26/18 05:50: WBC 3.7 L, RBC 4.02 L, Hgb 11.5 L, Hct 35.5 L, MCV 88.3, MCH 28.6, MCHC 32.4, RDW 13.7, RDW Differential 43.5, Plt Count 194, MPV 10.5 09/26/18 05:50: Sodium 143, Potassium 3.4 L, Chloride 110 H, Carbon Dioxide 27.0, Anion Gap 6, BUN 15, Creatinine 0.69, Est GFR (MDRD) Af Amer 108, Est GFR (MDRD) Non-Af 90, BUN/Creatinine Ratio 21.8 H, Glucose 85, Calcium 7.4 L, Total Bilirubin 0.50, Triglycerides 146, Cholesterol 157, LDL Cholesterol 93, VLDL Cholesterol 29, HDL Cholesterol 35 L Rhythm: Sinus rhythm EKG: As noted above ECHO: Normal left ventricular size, wall motion, systolic function; mild left atrial enlargement; mild diffuse mitral valve thickening with mild mitral valve prolapse with mild MR; mild TR; mild focal aortic valve calcification with trivial AI; trivial TX; estimated RV systolic pressure of 34 mmHg; indeterminate diastolic dysfunction Assessment/Plan 1. Non-ST segment elevation NJ Is unclear as to whether the patient had a primary acute coronary syndrome event versus a type II supply demand mismatch event. Thus far there is been no other noncardiac etiology to explain her troponin I levels. At the present time she will continue to be monitored. Her troponin I levels will be followed for a peak and decrease. She will have follow-up ECG. She has already had evaluation with a transthoracic echocardiogram. Depending upon her clinical course she may need further evaluation for the possibility of CAD. Based upon her clinical scenario and abnormal cardiac enzymes this may include diagnostic cardiac catheterization. In the interim she will continue medical therapy. This will include aspirin, antiplatelet agents, nitrates as needed, beta-blockers, lipid-lowering agents, anticoagulants, all as deemed appropriate. 2. Hypertension Her blood pressure will be followed. She will continue medical management with adjustment as needed. 3. Encephalopathy The etiology of her encephalopathy is unclear. However there appears to be, based upon conversation with the [facility] hospitalist staff, working diagnosis that may be related to abrupt termination of her corticosteroid therapy and her antidepressant therapy. Her mental status is reported as improving. She will continue to be followed. Comment: The patient's case was discussed with the patient, her family member, and Dr. Hicks of the [facility] staff. This note was generated using a voice recognition system and there may be incorrect words, spelling or punctuation that were not noted when reviewing the office note prior to saving.
[2018-09-26] MEDS: TICAGRELOR 90 MG TABLET 180 MG PO (17:26)
[2018-09-26] MEDS: Levothyroxine 112 MCG Tablet PO (21:59)
[2018-09-26] MEDS: Atorvastatin Calcium 40 MG Tablet PO (21:59)
[2018-09-27] VITALS (10 sets, daily range): BP systolic 105–143; BP diastolic 49–69; PULSE 59–89; RESP 14–18; TEMP 36.7–37; O2SAT 92–95
--- NOTE | 2018-09-27 05:55 | EKG12_ITS ---
Test Reason : AM Blood Pressure : / mmHG Vent. Rate : 071 BPM Atrial Rate : 071 BPM P-R Int : 182 ms QRS Dur : 080 ms QT Int : 426 ms P-R-T Axes : 052 054 033 degrees QTc Int : 462 ms Normal sinus rhythm Normal ECG Confirmed by DOREEN MCMULLEN, AJ ([id number]), photographic editor MIKEY NAVARRO ([id number]) on 10/05/2018 11:28:14 AM Referred By: Victor Manuel Duque Confirmed By:AJ LOGAN MD
[2018-09-27] MEDS: Levothyroxine 112 MCG Tablet PO (06:27)
[2018-09-27 07:04] LABS: Anion Gap 7 (5-15); BUN 15 mg/dL (7-18); Calcium,Total 8.5 mg/dL (8.5-10.1); Chloride 110 mmol/L (98-107); Creatinine, Serum 0.75 mg/dL (0.55-1.02); EST Glomerular Filtration Rate 81 mL/min (>60); Est Glom Filt Rate - Afr Amer 98 mL/min (>60); Glucose 102 mg/dL (74-106); Potassium 3.4 mmol/L (3.5-5.1); Sodium Level 144 mmol/L (136-145)
[2018-09-27] MEDS: TICAGRELOR 90 MG TABLET PO ×2 (08:51→21:44)
[2018-09-27] MEDS: predniSONE 20 MG Tablet 40 MG PO (08:51)
[2018-09-27] MEDS: Chlorthalidone 50 MG Tablet 25 MG PO (08:51)
[2018-09-27] MEDS: Aspirin E.C. 81 MG Tablet PO (08:51)
[2018-09-27] MEDS: Enoxaparin 40 MG/0.4 ML Syringe SC (08:52)
[2018-09-27] MEDS: Atenolol 50 MG Tablet PO (08:52)
--- NOTE | 2018-09-27 12:28 | PN.CARD_ITS ---
Subjectve: The patient states she is feeling better overall with respect to her mental status. She believes she is back to her baseline. She has noted concerns of her waxing and waning chest discomfort in the past. Her troponin I levels have been evaluated and remained mildly elevated. Objective: Vital Signs Temp Pulse Resp BP Pulse Ox 98.6 F 61 14 121/58 H 92 09/27/18 08:50 09/27/18 11:00 09/27/18 08:50 09/27/18 08:50 09/27/18 08:50 Oxygen Delivery Method Room Air Weight: 151 lb 10.848 oz Body Mass Index (BMI) 26.9 Intake and Output for Last 24 Hours 09/25/18 09/26/18 09/27/18 23:59 23:59 23:59 Intake Total 942 / 942 1168 / 1168 100 / 100 Output Total 1000 / 1000 Balance 942 / 942 168 / 168 100 / 100 General: Awake, Alert, Oriented x 3, Cooperative, No Acute Distress HEENT: Atraumatic, Normocephalic, PERRL, EOMI, Sclera Non Icteric Oral: Moist Mucosa Neck: Supple, Good ROM, No JVD Lungs: Clear to auscultation Cardiovascular: Regular Rhythm, Normal S1, Normal S2 Vascular: No Carotid Bruits Abdomen: Bowel Sounds Present, Soft, Non Tender Extremities: No edema Psych/Mental Status: Appropriate 09/27/18 06:22: Sodium 144, Potassium 3.4 L, Chloride 110 H, Carbon Dioxide 27.0, Anion Gap 7, BUN 15, Creatinine 0.75, Est GFR (MDRD) Af Amer 98, Est GFR (MDRD) Non-Af 81, BUN/Creatinine Ratio 20.0, Glucose 102, Calcium 8.5, Troponin I 0.650 H* Rhythm: Sinus rhythm EKG: This rhythm; no acute ECG changes Medical Necessity - Tobacco Use Smoking Status: Never smoker Tobacco Use: Non-smoker Assessment/Plan 1. Non-ST segment elevation RI Is unclear as to whether the patient had a primary acute coronary syndrome event versus a type II supply demand mismatch event. Thus far there is been no other noncardiac etiology to explain her troponin I levels. At the present time she will continue to be monitored. Her troponin I levels have remained mildly in creased. Follow-up ECG is demonstrated no acute ECG changes. She has already had evaluation with a transthoracic echocardiogram. At the present time without other explanation was felt reasonable the patient be further evaluated for the possibility of CAD with diagnostic cardiac catheterization. The procedure and risks were discussed with the patient. She was agreeable to this approach. In the interim she will continue medical therapy. This will include aspirin, antiplatelet agents, nitrates as needed, beta-blockers, lipid-lowering agents, anticoagulants, all as deemed appropriate. 2. Hypertension Her blood pressure will be followed. She will continue medical management with adjustment as needed. 3. Encephalopathy The etiology of her encephalopathy is unclear. However there appears to be, based upon conversation with the [facility] hospitalist staff, working diagnosis that may be related to abrupt termination of her corticosteroid therapy and relationship to her recent antidepressant therapy/medication. Her mental status appears to be back to her baseline at this time. Comment: The patient's case was discussed with the patient, her family member, and Dr. Hicks of the [facility] staff. This note was generated using a voice recognition system and there may be incorrect words, spelling or punctuation that were not noted when reviewing the office note prior to saving.
[2018-09-27 15:16] LABS: Color, Urine Yellow (Yellow); Glucose, Dipstick Normal (Normal); Ketone-Dipstick Negative (Negative); Leukocyte Esterase-Dipstick Negative /ul (Negative); Nitrite-Dipstick Negative (Negative); Occult Blood-Urine Negative /ul (Negative); Protein-Dipstick Negative (Negative); Urine Bilirubin Dipstick Negative (Negative); Urine Clarity Clear (Clear); Urine Urobilinogen Normal (Normal)
--- NOTE | 2018-09-27 16:37 | PCM.PN.HOSP ---
Patient Problems: Active and Suspected Problems (Last Updated 09/25/18 @ 18:46 by Victor Manuel Duque DO) Encephalopathy acute (Acute) Elevated troponin (Acute) NSTEMI (non-ST elevated myocardial infarction) (Acute) Subjective: Patient further has had on and off chest discomfort and shortness of breath on exertion and sometimes even at rest. This has been going on for a few months before even though altered mental status event happened. Discussed with Dr. Dior. Scheduled for cardiac cath on 09/28/2018, tomorrow Vitals/I&O's: Vital Signs Temp Pulse Resp BP Pulse Ox 98.0 F 62 16 105/49 L 94 09/27/18 15:10 09/27/18 15:10 09/27/18 15:10 09/27/18 15:10 09/27/18 15:10 Oxygen Delivery Method Room Air Weight: 151 lb 10.848 oz Body Mass Index (BMI) 26.9 Intake and Output for Last 24 Hours 09/25/18 09/26/18 09/27/18 23:59 23:59 23:59 Intake Total 942 / 942 1168 / 1168 550 / 550 Output Total 1000 / 1000 Balance 942 / 942 168 / 168 550 / 550 General: Alert, Oriented x3, Cooperative HEENT: Atraumatic, PERRLA, EOMI, Normocephalic Neck: Supple, No JVD, Negative Carotid Bruits Lungs: Clear to auscultation, Normal air movement, No rhonchi, No wheeze, No rales Cardiovascular: Regular rate, Regular Rhythm, Normal S1, Normal S2, No murmurs Abdomen: Bowel Sounds Present, Soft, Non Tender, Non-Distended Extremities: No edema, Capillary Refill Less than 3 Seconds Skin: No rashes, No breakdown Musculoskeletal: No Tenderness to Palpation of Joints or Extremities, Arthritic Changes, Muscle Wasting Neurological: Cranial nerves II-XII grossly intact, Deep Tendon Reflexes 2+/4 and Symmetrical, Neuro grossly intact Psych/Mental Status: Normal Affect, Appropriate Laboratory Results 09/27/18 06:22: Sodium 144, Potassium 3.4 L, Chloride 110 H, Carbon Dioxide 27.0, Anion Gap 7, BUN 15, Creatinine 0.75, Estim Creat Clear Calc 43.30, Est GFR (MDRD) Af Amer 98, Est GFR (MDRD) Non-Af 81, BUN/Creatinine Ratio 20.0, Glucose 102, Calcium 8.5, Troponin I 0.650 H* 09/27/18 14:51: Urine Color Yellow, Urine Clarity Clear, Urine pH 7.0, Ur Specific [place] 1.010, Urine Protein Negative, Urine Glucose (UA) Normal, Urine Ketones Negative, Urine Occult Blood Negative, Urine Nitrite Negative, Urine Bilirubin Negative, Urine Urobilinogen Normal, Ur Leukocyte Esterase Negative Current Medications Acetaminophen (Tylenol) 650 mg PO Q6H PRN PRN PRN Reason: Mild Pain (1-3)/Temp > 100.7 F Aspirin (Ecotrin) 81 mg PO DAILY@0800 [facility] Last Admin: 09/27/18 08:51 Dose: 81 mg Atenolol (Tenormin (Beta Edgar)) 50 mg PO DAILY [facility] Last Admin: 09/27/18 08:52 Dose: 50 mg Atorvastatin Calcium (Lipitor) 40 mg PO QHS [facility] Last Admin: 09/26/18 21:59 Dose: 40 mg Chlorthalidone (Hygroton) 25 mg PO DAILY [facility] Last Admin: 09/27/18 08:51 Dose: 25 mg Enoxaparin Sodium (Lovenox) 40 mg SC DAILY@1000 [facility] Last Admin: 09/27/18 08:52 Dose: 40 mg Sodium Chloride () 1,000 mls @ 0 mls/hr IV .Q0M [facility] Levothyroxine Sodium (Synthroid) 112 mcg PO DAILY@0600 [facility] Last Admin: 09/27/18 06:27 Dose: 112 mcg Magnesium Hydroxide (Milk Of Magnesia) 30 ml PO DAILY PRN PRN Reason: Constipation Nitroglycerin (Nitrostat) 0.4 mg SUBLINGUAL Q5M PRN PRN Reason: CHEST PAIN Ondansetron HCl (Zofran) 4 mg IV Q8H PRN PRN PRN Reason: NAUSEA Potassium Chloride (K-Dur) 30 meq PO TIDCM [facility] Last Admin: 09/27/18 16:01 Dose: 30 meq Prednisone () 40 mg PO DAILY@0800 [facility] Last Admin: 09/27/18 08:51 Dose: 40 mg Sodium Chloride () 5 - 15 ml IV UD PRN PRN Reason: SALINE FLUSH Last Admin: 09/25/18 22:38 Dose: 10 ml Ticagrelor (Brilinta) 90 mg PO BID [facility] Last Admin: 09/27/18 08:51 Dose: 90 mg Medical Necessity - Tobacco Use Smoking Status: Never smoker Tobacco Use: Non-smoker Assessment/Plan All Active Problems (Last Updated 09/25/18 @ 18:46 by Victor Manuel Duque DO) Encephalopathy acute (Acute) Elevated troponin (Acute) NSTEMI (non-ST elevated myocardial infarction) (Acute) This 72-year-old female with history of hypertension, hypothyroidism and anxiety and depression was admitted from [facility] for acute encephalopathy, confusion and disorientation for 2 days. The patient denies fever or chills. No recent URI/abdominal pain. Denies change in bowel movement. Recently completed 1 week of Cipro for UTI on 09/21/2018. Patient denies any recent chest pain or anginal-like symptoms except gets short of breath on mild exertion. EKG normal sinus rhythm at 90 bpm with PVC on 09/25. Serial troponin was done found elevated 0.2, 0.192 and 0.678. 1. Acute encephalopathy: Patient did not have focal deficits other than just global confusion and lethargy at time of admission: Resolved Presumed metabolic encephalopathy or drug-induced from Seroquel which was recently started. Seroquel discontinued Patient received hydrocortisone at the outside hospital for presumed adrenal crisis. Unclear if any of this component is related with sudden withdrawal of her prednisone, even though was only 5 mg is contributing to this. patient on prednisone 40 mg and that can be tapered down to her 5 mg and then after that to be tapered off. Not clear why patient is on chronic prednisone. U tox negative 2. Elevated troponins, most probably demand supply mismatch ischemia or non-STEMI Serial troponins are elevated, 0.2, 0.192 and 0.678 and 0.65. Repeat EKG does not show change from [facility] EKG. Normal sinus rhythm at 84 bpm with slow progression of R wave. 2D echo was done. Patient had intermittent chest discomfort and shortness of breath for few months probably 2-3 months Echo reported as EF 65% with indeterminant diastolic function. LA mildly enlarged. Normal right atrium. Trivial AR. Mild focal aortic valve calcification. Mild MR. Normal tricuspid valve with mild TR. RVSP 34 mmHg Scheduled for cardiac cath 3. DVT prophylaxis with Lovenox Signout: Cardiac catheter tomorrow and if CATH Normal can be discharged Code Visit Inpatient E&M: 09766 Subs Hosp L2
--- NOTE | 2018-09-27 16:42 | PN_ITS ---
Patient Problems: Active and Suspected Problems (Last Updated 09/25/18 @ 18:46 by Victor Manuel Duque DO) Encephalopathy acute (Acute) Elevated troponin (Acute) NSTEMI (non-ST elevated myocardial infarction) (Acute) Subjective: Patient further has had on and off chest discomfort and shortness of breath on exertion and sometimes even at rest. This has been going on for a few months before even though altered mental status event happened. Discussed with Dr. Dior. Scheduled for cardiac cath on 09/28/2018, tomorrow Vitals/I&O's: Vital Signs Temp Pulse Resp BP Pulse Ox 98.0 F 62 16 105/49 L 94 09/27/18 15:10 09/27/18 15:10 09/27/18 15:10 09/27/18 15:10 09/27/18 15:10 Oxygen Delivery Method Room Air Weight: 151 lb 10.848 oz Body Mass Index (BMI) 26.9 Intake and Output for Last 24 Hours 09/25/18 09/26/18 09/27/18 23:59 23:59 23:59 Intake Total 942 / 942 1168 / 1168 550 / 550 Output Total 1000 / 1000 Balance 942 / 942 168 / 168 550 / 550 General: Alert, Oriented x3, Cooperative HEENT: Atraumatic, PERRLA, EOMI, Normocephalic Neck: Supple, No JVD, Negative Carotid Bruits Lungs: Clear to auscultation, Normal air movement, No rhonchi, No wheeze, No rales Cardiovascular: Regular rate, Regular Rhythm, Normal S1, Normal S2, No murmurs Abdomen: Bowel Sounds Present, Soft, Non Tender, Non-Distended Extremities: No edema, Capillary Refill Less than 3 Seconds Skin: No rashes, No breakdown Musculoskeletal: No Tenderness to Palpation of Joints or Extremities, Arthritic Changes, Muscle Wasting Neurological: Cranial nerves II-XII grossly intact, Deep Tendon Reflexes 2+/4 and Symmetrical, Neuro grossly intact Psych/Mental Status: Normal Affect, Appropriate Laboratory Results 09/27/18 06:22: Sodium 144, Potassium 3.4 L, Chloride 110 H, Carbon Dioxide 27.0, Anion Gap 7, BUN 15, Creatinine 0.75, Estim Creat Clear Calc 43.30, Est GFR (MDRD) Af Amer 98, Est GFR (MDRD) Non-Af 81, BUN/Creatinine Ratio 20.0, Glucose 102, Calcium 8.5, Troponin I 0.650 H* 09/27/18 14:51: Urine Color Yellow, Urine Clarity Clear, Urine pH 7.0, Ur Specific [place] 1.010, Urine Protein Negative, Urine Glucose (UA) Normal, Urine Ketones Negative, Urine Occult Blood Negative, Urine Nitrite Negative, Urine Bilirubin Negative, Urine Urobilinogen Normal, Ur Leukocyte Esterase Negative Current Medications Acetaminophen (Tylenol) 650 mg PO Q6H PRN PRN PRN Reason: Mild Pain (1-3)/Temp > 100.7 F Aspirin (Ecotrin) 81 mg PO DAILY@0800 [facility] Last Admin: 09/27/18 08:51 Dose: 81 mg Atenolol (Tenormin (Beta Edgar)) 50 mg PO DAILY [facility] Last Admin: 09/27/18 08:52 Dose: 50 mg Atorvastatin Calcium (Lipitor) 40 mg PO QHS [facility] Last Admin: 09/26/18 21:59 Dose: 40 mg Chlorthalidone (Hygroton) 25 mg PO DAILY [facility] Last Admin: 09/27/18 08:51 Dose: 25 mg Enoxaparin Sodium (Lovenox) 40 mg SC DAILY@1000 [facility] Last Admin: 09/27/18 08:52 Dose: 40 mg Sodium Chloride () 1,000 mls @ 0 mls/hr IV .Q0M [facility] Levothyroxine Sodium (Synthroid) 112 mcg PO DAILY@0600 [facility] Last Admin: 09/27/18 06:27 Dose: 112 mcg Magnesium Hydroxide (Milk Of Magnesia) 30 ml PO DAILY PRN PRN Reason: Constipation Nitroglycerin (Nitrostat) 0.4 mg SUBLINGUAL Q5M PRN PRN Reason: CHEST PAIN Ondansetron HCl (Zofran) 4 mg IV Q8H PRN PRN PRN Reason: NAUSEA Potassium Chloride (K-Dur) 30 meq PO TIDCM [facility] Last Admin: 09/27/18 16:01 Dose: 30 meq Prednisone () 40 mg PO DAILY@0800 [facility] Last Admin: 09/27/18 08:51 Dose: 40 mg Sodium Chloride () 5 - 15 ml IV UD PRN PRN Reason: SALINE FLUSH Last Admin: 09/25/18 22:38 Dose: 10 ml Ticagrelor (Brilinta) 90 mg PO BID [facility] Last Admin: 09/27/18 08:51 Dose: 90 mg Medical Necessity - Tobacco Use Smoking Status: Never smoker Tobacco Use: Non-smoker Assessment/Plan All Active Problems (Last Updated 09/25/18 @ 18:46 by Victor Manuel Duque DO) Encephalopathy acute (Acute) Elevated troponin (Acute) NSTEMI (non-ST elevated myocardial infarction) (Acute) This 72-year-old female with history of hypertension, hypothyroidism and anxiety and depression was admitted from [facility] for acute encephalopathy, confusion and disorientation for 2 days. The patient denies fever or chills. No recent URI/abdominal pain. Denies change in bowel movement. Recently completed 1 week of Cipro for UTI on 09/21/2018. Patient denies any recent chest pain or anginal-like symptoms except gets short of breath on mild exertion. EKG normal sinus rhythm at 90 bpm with PVC on 09/25. Serial troponin was done found elevated 0.2, 0.192 and 0.678. 1. Acute encephalopathy: * Patient did not have focal deficits other than just global confusion and lethargy at time of admission: Resolved * Presumed metabolic encephalopathy or drug-induced from Seroquel which was recently started. Seroquel discontinued * Patient received hydrocortisone at the outside hospital for presumed adrenal crisis. Unclear if any of this component is related with sudden withdrawal of her prednisone, even though was only 5 mg is contributing to this. * patient on prednisone 40 mg and that can be tapered down to her 5 mg and then after that to be tapered off. Not clear why patient is on chronic prednisone. * U tox negative 2. Elevated troponins, most probably demand supply mismatch ischemia or non- STEMI * Serial troponins are elevated, 0.2, 0.192 and 0.678 and 0.65. Repeat EKG does not show change from [facility] EKG. Normal sinus rhythm at 84 bpm with slow progression of R wave. 2D echo was done. * Patient had intermittent chest discomfort and shortness of breath for few months probably 2-3 months * Echo reported as EF 65% with indeterminant diastolic function. LA mildly enlarged. Normal right atrium. Trivial AR. Mild focal aortic valve calcification. Mild MR. Normal tricuspid valve with mild TR. RVSP 34 mmHg * Scheduled for cardiac cath 3. DVT prophylaxis with Lovenox Signout: Cardiac catheter tomorrow and if CATH Normal can be discharged Code Visit Inpatient E&M: 60784 Subs Hosp L2
[2018-09-27] MEDS: Atorvastatin Calcium 40 MG Tablet PO (21:44)
[2018-09-28] VITALS (22 sets, daily range): BP systolic 116–189; BP diastolic 59–100; PULSE 41–74; RESP 14–18; TEMP 36.6–37; O2SAT 92–98
--- NOTE | 2018-09-28 05:35 | RAD_ITS ---
STUDY: X-RAY CHEST REASON FOR EXAM: Female, 72 years old. Evaluation for cardiac catheterization. TECHNIQUE: Single AP portable view of the chest. COMPARISON: None. FINDINGS: EKG electrodes are seen. Surgical clips are seen in the lower cervical region. The lungs are clear and expanded. There is no demonstrated pleural abnormality. There is mild cardiac enlargement. Normal mediastinum and aubrey. Normal visualized pulmonary arteries. There is atherosclerotic tortuosity of the aortic arch and descending thoracic aorta. Normal visualized thoracic spine. Calcific tendinitis of the right shoulder. There is no demonstrated abnormality of the visualized soft tissue structures of the upper abdomen. RAD/Chest 1 View (Portable) IMPRESSION: Ectasia of the aortic arch and descending thoracic aorta with indentation along the left side of the trachea. Right calcific tendinitis. Electronically Signed: Braeden Anderson, at 13:46 EDT , Service support ,
[2018-09-28 05:55] LABS: Absolute Lymphocyte Count 1.42 X10^3/ul (0.83-4.51); Absolute Neutrophil Count 6.7 X10^3/uL (2.0-7.7); Anion Gap 8 (5-15); BUN 14 mg/dL (7-18); BUN/Creat Ratio 20.1 RATIO (10-20); Basophil# 0.01 X10^3/uL; Basophil% 0.1 % (0-1); Calcium,Total 8.8 mg/dL (8.5-10.1); Chloride 111 mmol/L (98-107); EST Glomerular Filtration Rate 88 mL/min (>60); Eosinophil# 0.03 X10^3/uL; Eosinophils% 0.3 % (0-5); Est Glom Filt Rate - Afr Amer 107 mL/min (>60); Glucose 103 mg/dL (74-106); Hematocrit 40.7 % (37-47); Hemoglobin 13.5 g/dl (12.0-15.0); Lymphocyte # 1.42 X10^3/ul (4.0); Lymphocyte % 15.9 % (19-41); Mean Corp Hgb Conc 33.2 g/gl (32-36); Mean Corpuscular Volume 87.5 fL (81-99); Monocyte# 0.81 X10^3/uL; Monocyte% 9.1 % (0-10); Neutrophil # 6.66 X10^3/uL (2.7-7.7); Neutrophil % 74.5 % (47-70); Platelet Count 278 K/mm3 (150-450); Potassium 3.6 mmol/L (3.5-5.1); RBC Distribution Width CV 13.9 % (11.6-14.6); Red Blood Count 4.65 M/mm3 (4.2-5.4); Sodium Level 143 mmol/L (136-145); White Blood Count 8.9 K/mm3 (4.4-11.0)
--- NOTE | 2018-09-28 05:55 | EKG12_ITS ---
Test Reason : MARIANA Blood Pressure : / mmHG Vent. Rate : 037 BPM Atrial Rate : 037 BPM P-R Int : 184 ms QRS Dur : 080 ms QT Int : 480 ms P-R-T Axes : 053 049 020 degrees QTc Int : 376 ms Marked sinus bradycardia Nonspecific ST abnormality Abnormal ECG Confirmed by DOREEN MCMULLEN, AJ ([id number]), map editor MIKEY NAVARRO ([id number]) on 10/05/2018 12:20:01 PM Referred By: Victor Manuel Duque Confirmed By:AJ LOGAN MD
[2018-09-28 05:57] LABS: International Normalized Ratio 1.1; Prothrombin Time (Protime)PT. 13.7 SECONDS (11.7-14.9)
[2018-09-28 06:06] LABS: Partial Thromboplast Time 24.1 Seconds (24.1-36.2)
[2018-09-28 06:11] LABS: POSITIVE COUNT NO; POSITIVE DIFFERENTIAL NO; POSITIVE MORPHOLOGY NO
[2018-09-28] MEDS: 0.9% NaCl Peripheral Flush Adult/Peds IV (06:39)
[2018-09-28] MEDS: Calcium Carbonate 500 MG Tablet 1000 MG PO (06:41)
[2018-09-28] MEDS: TICAGRELOR 90 MG TABLET PO (06:41)
[2018-09-28] MEDS: Aspirin E.C. 81 MG Tablet PO (06:42)
[2018-09-28] MEDS: Levothyroxine 112 MCG Tablet PO (06:42)
[2018-09-28] MEDS: Atenolol 50 MG Tablet PO (06:42)
--- NOTE | 2018-09-28 08:37 | CL.D_ITS ---
Patient Name: CHERRY CAMERON Study Date: 09/28/2018 Performing: Dashawn Dior MD Ht: 63 inches 160 cm : 1945 Wt: 152.3 lbs 69 kg Age: 72 Gender: female BSA: 1.72 PROCEDURE(S) PERFORMED [id number] CLINICAL PROFILE AND INDICATIONS Indications: Suspected CAD Heart Failure: None Stress/Imaging Stress/Image Study Performed: No Angina Classification Anginal Classification w/in 2 Weeks: CCS IV CAD Presentations: STEMI. CONCLUSIONS Elevated Left Ventricular End Diastolic Pressure Normal LV size, wall motion,and systolic function LVEF: by LV gram 65 % [place] Multivessel CAD (mild luminal irregularities) Mitral Valve Prolapse Mild RECOMMENDATIONS Risk factor modification Medical therapy DESCRIPTION OF PROCEDURE The patient arrived to the procedure lab. The risks and benefits of the procedure as well as a full d escription of our services here and current unavailability of surgical backup were fully explained to the patient and/or their significant other prior to the catheterization. The Timeout was completed, verifying the correct patient and procedure. The patient's procedural site was prepped and draped in the usual fashion. Local anesthetic was given subcutaneously to right radial region with Lidocaine 2% . Using a modified Seldinger technique, arterial access was obtained via the right radial artery, a 6 Fr sheath was inserted. Left Coronary Artery selective angiography was performed in multiple views u sing a 5 Fr. 4.0 [place] catheter. Right Coronary Artery selective angiography was then performed in mu ltiple views using a 5 Fr. 4.0 [place] catheter. Left Ventriculography was performed in SNOW projection using a 5 Fr. Pig[place] catheter. LV to AO pullback pressures were then recorded.The arterial sheath was pulled and a TR Band was applied for hemostasis CORONARY ANGIOGRAPHY DOMINANCE: Right Dominant LEFT HEART ASSESSMENT Left Ventricular Ejection Fraction: by LV Gram 65 % Normal LV wall motion Elevated Left Ventricular End Diastolic Pressure LVEDP: 17 mmHg LEFT MAIN: Mild luminal irregularities LEFT ANTERIOR DECENDING ARTERY: PROX LAD: Mild luminal irregularities CIRCUMFLEX ARTERY: Angiographically normal RIGHT CORONARY ARTERY: PROX RCA: Mild luminal irregularities VALVE FINDINGS: Normal Aortic Valve function Mitral Valve Prolapse Mild AORTIC ROOT: Angiographically normal COMPLICATIONS No Complications PROCEDURE MEDICATIONS Fentanyl 50 mcg IV Versed 1 mg IV Oxygen: 2 L/min via nasal cannula Heparin diluted in 23cc Heparinized saline. Patient given 10cc IA of this solution. 09/28/2018 07:55:4 3 Verapamil 2.5mg, Ntg 100mcgs, 2000 units of Heparin diluted in 23cc Heparinized saline. Patient give n 10cc IA of this solution. 09/28/2018 07:55:43 SUMMARY OF HEMODYNAMIC DATA Time AIR REST ECG 07:24:43 AO 124/79 (95) SA 07:58:40 LV 159/-11, 22 08:07:40 LV 145/-11, 17 08:07:46 LV 146/-13, 25 08:08:57 LV 138/-12, 27 08:09:04 LVp 144/-2, 27 08:09:13 AOp 155/61 (96) 08:09:18 Signed By Dashawn Dior MD On 09/28/2018 8:35:51 AM Dashawn Dior MD
--- NOTE | 2018-09-28 08:47 | PCM.PN.CARD ---
Subjectve: The patient is now status post diagnostic cardiac catheterization. She has had no new acute complaints. Objective: Vital Signs Temp Pulse Resp BP Pulse Ox 98.5 F 52 L 16 129/64 H 96 09/28/18 06:35 09/28/18 08:30 09/28/18 08:30 09/28/18 08:30 09/28/18 08:30 Oxygen Delivery Method Room Air Weight: 151 lb 10.848 oz Body Mass Index (BMI) 26.9 Intake and Output for Last 24 Hours 09/26/18 09/27/18 09/28/18 23:59 23:59 23:59 Intake Total 1168 / 1168 1225 / 1225 Output Total 1000 / 1000 400 / 400 Balance 168 / 168 1225 / 1225 -400 / -400 General: Awake, Alert, Oriented x 3, Cooperative, No Acute Distress HEENT: Atraumatic, Normocephalic, PERRL, EOMI, EAC Clear Oral: Moist Mucosa Neck: Supple, Good ROM, No JVD Lungs: Clear to auscultation Cardiovascular: Regular Rhythm, Premature Ectopic Beats, Normal S1, Normal S2 Vascular: Normal Radial Pulses Abdomen: Bowel Sounds Present, Soft, Non Tender Extremities: No edema Neurological: No Focal Motor or Sensory Deficit Psych/Mental Status: Appropriate 09/27/18 14:51: Urine Color Yellow, Urine Clarity Clear, Urine pH 7.0, Ur Specific [place] 1.010, Urine Protein Negative, Urine Glucose (UA) Normal, Urine Ketones Negative, Urine Occult Blood Negative, Urine Nitrite Negative, Urine Bilirubin Negative, Urine Urobilinogen Normal, Ur Leukocyte Esterase Negative 09/28/18 05:10: WBC 8.9, RBC 4.65, Hgb 13.5, Hct 40.7, MCV 87.5, MCH 29.0, MCHC 33.2, RDW 13.9, RDW Differential 44.0 H, Plt Count 278, MPV 11.0, Immature Gran % (Auto) 0.100, Neut % (Auto) 74.5 H, Lymph % (Auto) 15.9 L, [place] % (Auto) 9.1, Eos % (Auto) 0.3, Baso % (Auto) 0.1, Absolute Neuts (auto) 6.7, Total Counted Not Reportable 09/28/18 05:10: PT 13.7, INR 1.1, APTT 24.1 09/28/18 05:10: Sodium 143, Potassium 3.6, Chloride 111 H, Carbon Dioxide 24.0, Anion Gap 8, BUN 14, Creatinine 0.70, Est GFR (MDRD) Af Amer 107, Est GFR (MDRD) Non-Af 88, BUN/Creatinine Ratio 20.1 H, Glucose 103, Calcium 8.8 Rhythm: Sinus rhythm; PVCs EKG: This rhythm; low voltage QRS Cardiac Cath: Please see official report: Left ventricle normal with an LVEF 65%; mild luminal irregularities of the left main coronary artery, LAD, RCA; mild mitral valve prolapse Medical Necessity - Tobacco Use Smoking Status: Never smoker Tobacco Use: Non-smoker Assessment/Plan 1. Non-ST segment elevation [place] At the present time the patient does not appear to have angiographically significant appearing coronary artery disease to explain her symptoms and/or her cardiac enzyme findings. Thus she may have experienced a type II supply demand mismatch event. She should continue risk factor evaluation and care. She can continue evaluation of her chest discomfort. 2. Mitral valve prolapse Her left ventriculogram suggests mild mitral valve prolapse. She does not appear to have any obvious hemodynamically significant valvular heart disease based upon her noninvasive or invasive studies thus far. This can be followed by history, exam, and future echocardiographic studies. 3. Hypertension Her blood pressure will be followed. She will continue medical management with adjustment as needed. 4. Encephalopathy The etiology of her encephalopathy is unclear. However there appears to be, based upon conversation with the [facility] hospitalist staff, working diagnosis that may be related to abrupt termination of her corticosteroid therapy and relationship to her recent antidepressant therapy/medication. Her mental status appears to be back to her baseline at this time. Comment: The patient's case was discussed with the patient and her family members present. This note was generated using a voice recognition system and there may be incorrect words, spelling or punctuation that were not noted when reviewing the office note prior to saving.
[2018-09-28] MEDS: 0.9% Normal Saline 1,000 ML 75 ML IV (08:58)
--- NOTE | 2018-09-28 09:51 | DCINST_ITS ---
- Discharge Diagnoses Current Active Problems: Current Active and Chronic Problems (Last Updated 09/25/18 @ 18:46 by Victor Manuel Duque DO) Encephalopathy acute (Acute) Elevated troponin (Acute) NSTEMI (non-ST elevated myocardial infarction) (Acute) HTN (hypertension) (Chronic) Reason(s) for Visit for Discharge Instructions: Confusion You will use the following diet at home:: Cardiac Your food should be the consistency of: Regular Your liquids should be the consistency of: Regular/Thin Discharge Activity: Return to Normal Activity Additional Instructions: Continue at home per post-cardiac cath instructions. Take note of changes to your medicines. Do not take Seroquel. You are being discharged on tapering doses of prednisone. Allergies/Adverse Reactions: Allergies amoxicillin Allergy (Verified 01/14/15 21:05) Itching Latex, Natural Rubber Allergy (Verified 09/25/18 20:00) Unknown Penicillins Allergy (Verified 01/14/15 21:05) Itching Medications to take at Discharge RX: Atenolol/Chlorthalidone [Atenolol-Chlorthalidone 50-25] 1 each PO DAILY 01/14/15 RX: Potassium Chloride [Klor-Con M10] 20 meq PO BID 01/14/15 RX: Duloxetine HCl 30 mg PO QHS 09/25/18 RX: Levothyroxine Sodium 112 mcg PO DAILY 09/25/18 RX: Acetaminophen [Tylenol Tablet] 650 mg PO Q6H PRN PRN tablet 09/28/18 RX: Aspirin E.C. [Ecotrin] 81 mg PO DAILY@0800 #30 tablet 09/28/18 RX: Atorvastatin Calcium [Lipitor] 40 mg PO QHS #30 tablet 09/28/18 RX: Prednisone 10 mg PO DAILY #40 tablet 09/28/18 The following prescriptions were given: RX: Aspirin E.C. [Ecotrin] 81 mg PO DAILY@0800 #30 tablet RX: Atorvastatin Calcium [Lipitor] 40 mg PO QHS #30 tablet RX: Prednisone 10 mg PO DAILY #40 tablet Primary Care Physician: Mukesh Clark Chi, MD [Primary Care Provider] - Please follow up with your Primary Care Physician in: within 1 week Test Results: Test results from this visit will be discussed in further detail at your follow- up appointment, if applicable. Please Follow Up With: Dashawn Dior MD When: in 2 weeks Proposed Discharge Date: 09/28/18
--- NOTE | 2018-09-28 10:00 | CASEMGMT ---
Addendum entered by Chelsea Sierra 09/28/18 14:13: Pt states had HHC in the past s/p TKR and states no hx of SNF. Angel CURIEL CM Original Note: MOISÉS PEÑA assessment: Face to Face with patient for initial transition planning/care coordination assessment. MOISÉS PEÑA introduced self and role at [facility], pt voices understanding and consents to assessment at this time. Pt is sitting up in bed in no distress at this time. Pt is A/Ox4 at this time and answers all questions appropriately at this time. Pt's and daughter at bedside during assessment. Care providers, pharmacy, and demographics verified/updated at this time. PCP: Eduardo Specialists: linda Gilliland Pharmacy: [facility] Insurance: MAZIN A/[place] Prescription Benefit: MAZIN [place] Living Will/HPOA: Pt states does not have LW/HPOA but does have paperwork at home. [facility] [employer] pamphlet provided to pt at this time and pt/ aware that they can call to set up appt to complete AD. LNOK: Yury Almodovar, Living Arrangements: Pt lives with in 2 story home and states no concerns at home at this time. Pt states is normally independent with ADL's. Transportation: Pt states drives self and states no transportation concerns at this time. DME/HHC: Pt states has the following DME: cane, walker, grab bars, and tub bench. Pt states no need for any further DME at this time. Pt//daughter states no concerns with going home at time of discharge. Pt is retired. Pt states does not smoke or drink ETOH. Pt states no further concerns/needs at this time. CM to follow for any further discharge planning/needs. Advised pt/family to ask for CM if any further questions/concerns/needs arise, voice understanding. Plan: Home Angel CURIEL CM
--- NOTE | 2018-09-28 10:11 | PHA.DC.MR ---
Pharmacy Service has performed discharge medication reconciliation for this patient [facility] The patient's discharge medication list was reviewed for discrepancies and discrepancies were resolved. Home Medications Atenolol/Chlorthalidone [Atenolol-Chlorthalidone 50-25] 1 each PO DAILY 01/14/15 Potassium Chloride [Klor-Con M10] 20 meq PO BID 01/14/15 Duloxetine HCl 30 mg PO QHS 09/25/18 Levothyroxine Sodium 112 mcg PO DAILY 09/25/18 Acetaminophen [Tylenol Tablet] 650 mg PO Q6H PRN PRN tablet 09/28/18 Aspirin E.C. [Ecotrin] 81 mg PO DAILY@0800 #30 tablet 09/28/18 Atorvastatin Calcium [Lipitor] 40 mg PO QHS #30 tablet 09/28/18 Prednisone 10 mg PO DAILY #40 tablet 09/28/18
--- NOTE | 2018-09-28 10:22 | DS.PCM_ITS ---
Discharge Date and Diagnosis - Problem List Patient Problems: Active and Suspected Problems (Last Updated 09/25/18 @ 18:46 by Victor Manuel Duque DO) Encephalopathy acute (Acute) Elevated troponin (Acute) NSTEMI (non-ST elevated myocardial infarction) (Acute) Date of Admission: 09/25/18 Date of Discharge: 09/28/18 - Primary Discharge Diagnosis Active and Suspected Problems (Last Updated 09/25/18 @ 18:46 by Victor Manuel Duque DO) Encephalopathy acute (Acute) NSTEMI (non-ST elevated myocardial infarction) (Acute), Non-NC Bradycardia, medication related - Secondary Discharge Diagnosis Chronic Problems (Last Updated 09/25/18 @ 18:46 by Victor Manuel Duque DO) HTN (hypertension) (Chronic) Hospital Course and Treatment Imaging Results: 09/28/18 05:35 CXR [Chest 1 View (Portable)] [RAD] AM (NON MEDS) Cardiology Operations: None Procedures: Cardiac catheterization Summary of Care Provided: The patient is a 72 year old F past medical history of hypertension, hypothyroidism, anxiety/depression who was admitted with confusion and disorientation ongoing for 2 days. Patient had recently completed 1 week of Cipro for UTI. Her confusion persisted. He was told that her confusion was related to start of Seroquel as well as been taking off prednisone. Patient was started back on prednisone 40 mg daily. She was noted to have elevated troponins. A 2D echo showed EF of 65% with indeterminate diastolic dysfunction. She underwent cardiac cath that was essentially normal. Post-cath, her HR was intermittently in the 30-40s. Her atenolol dose was decreased. Patient had headaches that was treated. Patient Problems: Active and Suspected Problems (Last Updated 09/25/18 @ 18:46 by Victor Manuel Duque DO) Encephalopathy acute (Acute) Elevated troponin (Acute) NSTEMI (non-ST elevated myocardial infarction) (Acute) Subjective: On the day of discharge, patient was seen and examined. She complained of left periorbital pain related to her previous migraines. Given Tylenol and Imitrex with some relief. She had bradycardia after cardiac cath. Findings a cardiac cath showed clean coronaries. Objective: Physical exam: General: Alert, Oriented x3, Cooperative HEENT: Atraumatic, PERRLA, EOMI, Normocephalic Neck: Supple, No JVD, Negative Carotid Bruits Lungs: Clear to auscultation, Normal air movement, No rhonchi, No wheeze, No rales Cardiovascular: Regular rate, Regular Rhythm, Normal S1, Normal S2, No murmurs Abdomen: Bowel Sounds Present, Soft, Non Tender, Non-Distended Extremities: No edema, Capillary Refill Less than 3 Seconds Skin: No rashes, No breakdown Musculoskeletal: No Tenderness to Palpation of Joints or Extremities, Arthritic Changes, Muscle Wasting Neurological: Cranial nerves II-XII grossly intact, Deep Tendon Reflexes 2+/4 and Symmetrical, Neuro grossly intact Psych/Mental Status: Normal Affect, Appropriate - Physical Exam Vital Signs Temp Pulse Resp BP Pulse Ox 98.5 F 51 L 16 124/61 H 96 09/28/18 06:35 09/28/18 10:00 09/28/18 10:00 09/28/18 10:00 09/28/18 10:00 Oxygen Delivery Method Room Air Weight: 68.8 kg Body Mass Index (BMI) 26.9 Intake and Output for Last 24 Hours 09/26/18 09/27/18 09/28/18 23:59 23:59 23:59 Intake Total 1168 / 1168 1225 / 1225 Output Total 1000 / 1000 400 / 400 Balance 168 / 168 1225 / 1225 -400 / -400 Laboratory Tests Past 24 Hrs 09/27/18 09/28/18 09/28/18 14:51 05:10 05:10 WBC 8.9 RBC 4.65 Hgb 13.5 Hct 40.7 MCV 87.5 MCH 29.0 MCHC 33.2 RDW 13.9 RDW Differential 44.0 H Plt Count 278 MPV 11.0 Immature Gran % (Auto) 0.100 Neut % (Auto) 74.5 H Lymph % (Auto) 15.9 L [place] % (Auto) 9.1 Eos % (Auto) 0.3 Baso % (Auto) 0.1 Absolute Neuts (auto) 6.7 Absolute Lymphs (auto) 1.42 Total Counted Not Reportable PT 13.7 INR 1.1 APTT 24.1 Sodium Potassium Chloride Carbon Dioxide Anion Gap BUN Creatinine Estim Creat Clear Calc Est GFR (MDRD) Af Amer Est GFR (MDRD) Non-Af BUN/Creatinine Ratio Glucose Calcium Urine Color Yellow Urine Clarity Clear Urine pH 7.0 Ur Specific [place] 1.010 Urine Protein Negative Urine Glucose (UA) Normal Urine Ketones Negative Urine Occult Blood Negative Urine Nitrite Negative Urine Bilirubin Negative Urine Urobilinogen Normal Ur Leukocyte Esterase Negative 09/28/18 05:10 WBC RBC Hgb Hct MCV MCH MCHC RDW RDW Differential Plt Count MPV Immature Gran % (Auto) Neut % (Auto) Lymph % (Auto) [place] % (Auto) Eos % (Auto) Baso % (Auto) Absolute Neuts (auto) Absolute Lymphs (auto) Total Counted PT INR APTT Sodium 143 Potassium 3.6 Chloride 111 H Carbon Dioxide 24.0 Anion Gap 8 BUN 14 Creatinine 0.70 Estim Creat Clear Calc 43.30 Est GFR (MDRD) Af Amer 107 Est GFR (MDRD) Non-Af 88 BUN/Creatinine Ratio 20.1 H Glucose 103 Calcium 8.8 Urine Color Urine Clarity Urine pH Ur Specific [place] Urine Protein Urine Glucose (UA) Urine Ketones Urine Occult Blood Urine Nitrite Urine Bilirubin Urine Urobilinogen Ur Leukocyte Esterase Discharge Diet: Low fat/ Low Cholesterol, 2000 mg Sodium Diet Discharge Activity: Return to Normal Activity Home Medications: Medications to take at Discharge Potassium Chloride [Klor-Con M10] 20 meq PO BID 01/14/15 Duloxetine HCl 30 mg PO QHS 09/25/18 Levothyroxine Sodium 112 mcg PO DAILY 09/25/18 Acetaminophen [Tylenol Tablet] 650 mg PO Q6H PRN PRN tablet 09/28/18 Aspirin E.C. [Ecotrin] 81 mg PO DAILY@0800 #30 tablet 09/28/18 Atenolol 25 mg PO DAILY #30 tablet 09/28/18 Atorvastatin Calcium [Lipitor] 40 mg PO QHS #30 tablet 09/28/18 Chlorthalidone 25 mg PO DAILY #30 tablet 09/28/18 Prednisone 10 mg PO DAILY #40 tablet 09/28/18 Following Prescrptions Were Given to Patient: Aspirin E.C. [Ecotrin] 81 mg PO DAILY@0800 #30 tablet Atenolol 25 mg PO DAILY #30 tablet Atorvastatin Calcium [Lipitor] 40 mg PO QHS #30 tablet Chlorthalidone 25 mg PO DAILY #30 tablet Prednisone 10 mg PO DAILY #40 tablet Primary Care Physician: Mukesh Clark Chi, MD [Primary Care Provider] - Please follow up with your Primary Care Physician in: within 1 week Please Follow Up With: Dashawn Dior MD When: in 2 weeks Disposition: Home Minutes spent on discharge:: 40 Patient Condition:: Stable Medical Necessity - Tobacco Use Smoking Status: Never smoker Tobacco Use: Non-smoker Meaningful Use Info Meaningful Use Diagnoses (Choose all that apply): None applicable - AMI Reason Petey/ARB not ordered:: Not indicated Code Visit Inpatient E&M: 46103 Disch Hosp
[2018-09-28] MEDS: Chlorthalidone 50 MG Tablet 25 MG PO (11:18)
[2018-09-28] MEDS: predniSONE 20 MG Tablet 40 MG PO (11:19)
--- NOTE | 2018-09-28 11:24 | EKG12_ITS ---
Test Reason : AM Blood Pressure : / mmHG Vent. Rate : 067 BPM Atrial Rate : 067 BPM P-R Int : 168 ms QRS Dur : 078 ms QT Int : 426 ms P-R-T Axes : 048 042 020 degrees QTc Int : 450 ms Normal sinus rhythm Low voltage QRS Borderline ECG Confirmed by DOREEN MCMLULEN, AJ ([id number]), image editor MIKEY NAVARRO ([id number]) on 10/05/2018 12:23:46 PM Referred By: Victor Manuel Duque Confirmed By:AJ LOGAN MD
[2018-09-28] MEDS: SUMAtriptan 6 MG/0.5 ML Vial SC (13:16)
[2018-09-28] MEDS: hydrALAZINE 20 MG/ML Vial 10 MG IV (15:15)
[2018-09-28] MEDS: Acetaminophen 500 MG Tablet 1000 MG PO (15:17)
== END 2018-09-28 17:59 | disposition home or self-care (01) | DRG 70 ==
PROVIDERS: Internal Medicine Cardiovascular Disease; Family Provider Family Medicine Geriatric Medicine; PCP Family Medicine Geriatric Medicine; Visit Provider Internal Medicine
DX: G93.40 Encephalopathy, unspecified (principal); I21.4 Non-ST elevation (NSTEMI) myocardial infarction; E03.9 Hypothyroidism, unspecified; I10 Essential (primary) hypertension; R00.1 Bradycardia, unspecified; T50.905A Adverse effect of unspecified drugs, medicaments and biological substances, initial encounter; Y92.239 Unspecified place in hospital as the place of occurrence of the external cause
CPT/HCPCS: 36415; 71045; 80048; 80053; 80061; 80307; 81002; 84484; 85025; 85027; 85610; 85730; 93005; 93306; 93458; 97110; 97161; 97166; 97530; 99152; 99153; J7030; A4216; C1769; C1894; J3030; Q9967

== ENCOUNTER → 2018-10-08 | Outpatient (CLI) | payer MEDICARE, OTHER, SELFPAY ==
[2018-09-21 02:05] VITALS: BMI 27.3
[2018-09-25 18:46] VITALS: BMI 26.9
--- NOTE | 2018-10-08 15:24 | US_ITS ---
STUDY: RENAL ULTRASOUND - COMPLETE REASON FOR EXAM: Female, 72 years old. Urinary retention TECHNIQUE: Ultrasound evaluation of the kidneys was performed with real-time and static martínez-scale imaging. COMPARISON: None. FINDINGS: RIGHT KIDNEY: Normal location of the right kidney, which is normal in size. The right kidney measures 8.8 x 4.5 x 4.8 cm. There is a normal cortex of the right kidney. The renal cortex measures 1.1 cm. There is no right renal mass or cyst. There are no right renal calculi. There is no right hydronephrosis. DISTAL RIGHT URETER: There is non-visualization of the distal right ureter. There is no demonstrated right ureterovesical junction calculus. There is a visualized right ureteral jet. LEFT KIDNEY: Normal location of the left kidney, which is normal in size. The left kidney measures 9.9 x 4.8 x 5.6 cm. There is a normal cortex of the left kidney. The renal cortex measures 1.4 cm. There is no left renal mass or cyst. There are no left renal calculi. There is no left hydronephrosis. DISTAL LEFT URETER: There is non-visualization of the distal left ureter. There is no demonstrated left ureterovesical junction calculus. There is a visualized left ureteral jet. AORTA: There is no elongation or tortuosity of the abdominal aorta. I.V.C.: The IVC is patent. BLADDER: The bladder is sonographically normal with distended volume of 147 mL US/Kidney and Bladder IMPRESSION: No suspicious sonographic findings Electronically Signed: Jayme Gr MD at 15:26 EDT , Service support ,
== END | disposition home or self-care (01) ==
LOC: US 15:23
PROVIDERS: Family Provider Family Medicine Geriatric Medicine; PCP Family Medicine Geriatric Medicine; Referring Provider Urology; Visit Provider Urology
DX: N39.0 Urinary tract infection, site not specified (principal); R33.9 Retention of urine, unspecified
CPT/HCPCS: 76770

== ENCOUNTER → 2018-11-05 12:48 | Outpatient (CLI) | payer MEDICARE, OTHER, SELFPAY ==
[2018-09-25 18:46] VITALS: BMI 26.9
--- NOTE | 2018-11-05 12:56 | BI_ITS ---
MAMMOGRAPHY - BILATERAL SCREENING REASON FOR EXAM: Female, 72 years old. Routine annual screening examination. PERTINENT HISTORY: Non-contributory. Remote left excisional breast biopsy. TECHNIQUE: Digital bilateral breast ted (3D mammographic acquisition) in the CC and MLO projections. 2-D mediolateral oblique (MLO) and craniocaudad (CC) views of both breasts were obtained. CAD: Full Field Digital Mammography with Computer Added Detection was performed. COMPARISON: Comparison is made with prior study dated August 21, 2017 and June 18, 2016. FINDINGS: Breast Composition: There are scattered areas of fibroglandular density. There are no dominant masses or suspicious calcifications. Stable small benign-appearing bilateral axillary lymph nodes No other significant abnormalities are identified. There has been no significant change since the prior study. BI/SCREENING MAMM (CAD), BILAT IMPRESSION: Stable bilateral screening mammogram. Yearly follow-up mammogram recommended. (A) ASSESSMENT CATEGORY: BIRADS Category 2: Benign. A letter regarding these results will be sent to the patient by the facility within 30 days. Approximately 10% of breast cancers are not detected by mammography. A normal mammogram should not delay biopsy of a clinically suspicious abnormality. [id number] Electronically Signed: Braeden Anderson, at 14:16 EDT , Service support ,
== END ==
PROVIDERS: Family Provider Family Medicine Geriatric Medicine; PCP Family Medicine Geriatric Medicine; Referring Provider Family Medicine Geriatric Medicine; Visit Provider Family Medicine Geriatric Medicine
DX: Z12.31 Encounter for screening mammogram for malignant neoplasm of breast (principal)
CPT/HCPCS: 77063; 77067

== ENCOUNTER → 2018-11-26 | Outpatient (CLI) | payer MEDICARE, OTHER, SELFPAY ==
[2018-09-25 18:46] VITALS: BMI 26.9
[2018-11-26 12:33] LABS: Absolute Lymphocyte Count 0.77 X10^3/ul (0.83-4.51); Absolute Neutrophil Count 5.1 X10^3/uL (2.0-7.7); Basophil# 0.04 X10^3/uL; Basophil% 0.5 % (0-1); Eosinophil# 1.06 X10^3/uL; Eosinophils% 14.2 % (0-5); Hematocrit 39.9 % (37-47); Hemoglobin 12.8 g/dl (12.0-15.0); Lymphocyte # 0.77 X10^3/ul (4.0); Lymphocyte % 10.3 % (19-41); Mean Corp Hgb Conc 32.1 g/gl (32-36); Mean Corpuscular Hgb 28.9 pg (27.0-32.0); Mean Corpuscular Volume 90.1 fL (81-99); Mean Platelet Vol. 11.5 fl (6.2-12.0); Monocyte# 0.44 X10^3/uL; Monocyte% 5.9 % (0-10); Neutrophil # 5.13 X10^3/uL (2.7-7.7); Platelet Count 267 K/mm3 (150-450); RBC Distribution Width CV 14.4 % (11.6-14.6); RBC Distribution Width SD 46.6 fl (35.1-43.9); Red Blood Count 4.43 M/mm3 (4.2-5.4); White Blood Count 7.5 K/mm3 (4.4-11.0)
[2018-11-26 12:36] LABS: POSITIVE COUNT NO; POSITIVE DIFFERENTIAL NO; POSITIVE MORPHOLOGY NO
[2018-11-26 12:54] LABS: ALB/GLOB Ratio 0.9 RATIO (0.9-2.4); AST(SGOT) 138 U/L (15-37); Alanine Aminotransfer ALT/SGPT 150 U/L (13-56); Albumin, Serum 3.1 g/dL (3.2-5.0); Alkaline Phosphatase 258 U/L (45-117); Anion Gap 8 (5-15); BUN 20 mg/dL (7-18); BUN/Creat Ratio 25.1 RATIO (10-20); Calcium,Total 8.5 mg/dL (8.5-10.1); Chloride 103 mmol/L (98-107); EST Glomerular Filtration Rate 76 mL/min (>60); Est Glom Filt Rate - Afr Amer 92 mL/min (>60); Globulin 3.6 g/dL (2.2-4.2); Glucose 179 mg/dL (74-106); Potassium 3.7 mmol/L (3.5-5.1); Protein, Total 6.7 g/dL (6.4-8.2); Sodium Level 140 mmol/L (136-145); Thyroid Stim Hormone (TSH) 1.43 uIU/mL (0.358-3.74)
[2018-11-26 13:19] LABS: Vitamin D,25 Hydroxy 30.3 ng/mL (29.95-100.01)
== END | disposition home or self-care (01) ==
LOC: POLAB3 10:33
PROVIDERS: Family Provider Family Medicine Geriatric Medicine; PCP Family Medicine Geriatric Medicine; Visit Provider Family Medicine Geriatric Medicine
DX: E11.9 Type 2 diabetes mellitus without complications (principal); E55.9 Vitamin D deficiency, unspecified; E03.9 Hypothyroidism, unspecified; I10 Essential (primary) hypertension
CPT/HCPCS: 36415; 80053; 82306; 84443; 85025

== ENCOUNTER → 2018-12-30 | Outpatient (CLI) | payer MEDICARE, OTHER, SELFPAY ==
[2018-09-25 18:46] VITALS: BMI 26.9
[2018-12-30 12:51] LABS: ALB/GLOB Ratio 1.1 RATIO (0.9-2.4); AST(SGOT) 15 U/L (15-37); Alanine Aminotransfer ALT/SGPT 21 U/L (13-56); Albumin, Serum 3.3 g/dL (3.2-5.0); Alkaline Phosphatase 67 U/L (45-117); Anion Gap 5 (5-15); BUN 19 mg/dL (7-18); Calcium,Total 8.4 mg/dL (8.5-10.1); Chloride 106 mmol/L (98-107); Creatinine, Serum 0.76 mg/dL (0.55-1.02); EST Glomerular Filtration Rate 80 mL/min (>60); Est Glom Filt Rate - Afr Amer 97 mL/min (>60); Globulin 3.1 g/dL (2.2-4.2); Glucose 120 mg/dL (74-106); Potassium 4.3 mmol/L (3.5-5.1); Protein, Total 6.4 g/dL (6.4-8.2); Sodium Level 138 mmol/L (136-145)
== END | disposition home or self-care (01) ==
LOC: LAB.FUTURE 12:14 → POLAB3 12:15
PROVIDERS: Family Provider Family Medicine Geriatric Medicine; PCP Family Medicine Geriatric Medicine; Visit Provider Family Medicine Geriatric Medicine
DX: R68.89 Other general symptoms and signs (principal)
CPT/HCPCS: 36415; 80053

== ENCOUNTER → 2019-03-11 | Outpatient (CLI) | payer MEDICARE, OTHER, SELFPAY ==
[2018-09-25 18:46] VITALS: BMI 26.9
== END | disposition home or self-care (01) ==
LOC: LABSPEC 15:05
PROVIDERS: Family Provider Family Medicine Geriatric Medicine; PCP Family Medicine Geriatric Medicine; Visit Provider Family Medicine Geriatric Medicine
DX: N39.0 Urinary tract infection, site not specified (principal)
CPT/HCPCS: 87086; 87088

== ENCOUNTER → 2019-04-13 | Outpatient (CLI) | payer MEDICARE, OTHER, SELFPAY ==
[2018-09-25 18:46] VITALS: BMI 26.9
--- NOTE | 2019-04-13 11:17 | CT_ITS ---
STUDY: CT BRAIN WITHOUT CONTRAST REASON FOR EXAM: Female, 73 years old. CLUSTER HEADACHES X 4 DAYS RADIATION DOSAGE (If Supplied By Facility): CTDIvol = ( 44.99 ) mGy, DLP = ( 779.24 ) mGycm TECHNIQUE: Transaxial CT imaging of the brain was performed without administration of intravenous contrast material. Individualized dose optimization techniques were used for this CT. COMPARISON: None. FINDINGS: There is cerebral atrophy with widening of the extra-axial spaces and ventricular dilatation. There are areas of decreased attenuation within the white matter tracts of the supratentorial brain, consistent with microvascular disease changes. There is no intracranial hemorrhage. There are no findings of an acute ischemic infarction. Normal soft tissue structures. Normal visualized paranasal sinuses. CT/Brain/Head without Contrast IMPRESSION: Chronic involutional changes of the brain. Electronically Signed: Marvin Fletcher MD at 11:34 EDT Tel , Service support ,
[2019-04-13 11:27] LABS: Absolute Lymphocyte Count 1.06 X10^3/uL (0.83-4.51); Absolute Neutrophil Count 12.2 X10^3/uL (2.0-7.7); Basophil# 0.07 X10^3/uL; Basophil% 0.5 % (0-1); Eosinophil# 0.14 X10^3/uL; Hematocrit 43.7 % (37-47); Hemoglobin 13.9 g/dL (12.0-15.0); Lymphocyte # 1.06 X10^3/ul (4.0); Lymphocyte % 7.5 % (19-41); Mean Corp Hgb Conc 31.8 g/dL (32-36); Mean Corpuscular Hgb 29.3 pg (27.0-32.0); Mean Platelet Vol. 11.3 fl (6.2-12.0); Monocyte# 0.45 X10^3/uL; Monocyte% 3.2 % (0-10); NRBC Flagged by Analyzer 0 % (0-5); Neutrophil # 12.24 X10^3/uL (2.7-7.7); Platelet Count 284 K/mm3 (150-450); RBC Distribution Width CV 14.6 % (11.6-14.6); RBC Distribution Width SD 49.6 fl (35.1-43.9); Red Blood Count 4.75 M/mm3 (4.2-5.4); White Blood Count 14.1 K/mm3 (4.4-11.0)
[2019-04-13 11:50] LABS: ALB/GLOB Ratio 0.8 RATIO (0.9-2.4); AST(SGOT) 11 U/L (15-37); Alanine Aminotransfer ALT/SGPT 17 U/L (13-56); Albumin, Serum 3.2 g/dL (3.2-5.0); Alkaline Phosphatase 77 U/L (45-117); Anion Gap 5 (5-15); BUN 20 mg/dL (7-18); BUN/Creat Ratio 24.7 RATIO (10-20); Calcium,Total 8.8 mg/dL (8.5-10.1); Chloride 106 mmol/L (98-107); Creatinine, Serum 0.81 mg/dL (0.55-1.02); EST Glomerular Filtration Rate 74 mL/min (>60); Est Glom Filt Rate - Afr Amer 90 mL/min (>60); Globulin 4.1 g/dL (2.2-4.2); Glucose 144 mg/dL (74-106); Potassium 3.5 mmol/L (3.5-5.1); Protein, Total 7.3 g/dL (6.4-8.2); Sodium Level 140 mmol/L (136-145); Thyroid Stim Hormone (TSH) 2.38 uIU/mL (0.358-3.74)
== END | disposition home or self-care (01) ==
PROVIDERS: Family Provider Family Medicine Geriatric Medicine; PCP Family Medicine Geriatric Medicine; Referring Provider Family Medicine Geriatric Medicine; Visit Provider Family Medicine Geriatric Medicine
DX: E03.9 Hypothyroidism, unspecified (principal); G44.009 Cluster headache syndrome, unspecified, not intractable
CPT/HCPCS: 36415; 70450; 80053; 84443; 85025

== ENCOUNTER → 2019-05-25 13:27 | Outpatient (CLI) | payer MEDICARE, OTHER, SELFPAY ==
[2018-09-25 18:46] VITALS: BMI 26.9
[2019-05-25 18:08] LABS: Absolute Lymphocyte Count 1.62 X10^3/uL (0.83-4.51); Absolute Neutrophil Count 6.9 X10^3/uL (2.0-7.7); Basophil# 0.04 X10^3/uL; Basophil% 0.4 % (0-1); Eosinophil# 0.19 X10^3/uL; Hematocrit 42.5 % (37-47); Hemoglobin 13.1 g/dL (12.0-15.0); Lymphocyte # 1.62 X10^3/ul (4.0); Lymphocyte % 17.1 % (19-41); Mean Corp Hgb Conc 30.8 g/dL (32-36); Mean Corpuscular Hgb 28.8 pg (27.0-32.0); Mean Corpuscular Volume 93.4 fL (81-99); Mean Platelet Vol. 11.3 fl (6.2-12.0); Monocyte# 0.68 X10^3/uL; Monocyte% 7.2 % (0-10); NRBC Flagged by Analyzer 0 % (0-5); Neutrophil # 6.88 X10^3/uL (2.7-7.7); Neutrophil % 72.7 % (47-70); Platelet Count 245 K/mm3 (150-450); RBC Distribution Width CV 14.5 % (11.6-14.6); RBC Distribution Width SD 50.1 fl (35.1-43.9); Red Blood Count 4.55 M/mm3 (4.2-5.4); White Blood Count 9.5 K/mm3 (4.4-11.0)
[2019-05-25 18:17] LABS: Vitamin D,25 Hydroxy 19.9 ng/mL (29.95-100.01)
[2019-05-25 18:19] LABS: AST(SGOT) 13 U/L (15-37); Alanine Aminotransfer ALT/SGPT 24 U/L (13-56); Albumin, Serum 3.2 g/dL (3.2-5.0); Alkaline Phosphatase 71 U/L (45-117); Anion Gap 6 (5-15); BUN 27 mg/dL (7-18); Calcium,Total 8.9 mg/dL (8.5-10.1); Chloride 108 mmol/L (98-107); Creatinine, Serum 0.93 mg/dL (0.55-1.02); EST Glomerular Filtration Rate 63 mL/min (>60); Est Glom Filt Rate - Afr Amer 76 mL/min (>60); Globulin 3.3 g/dL (2.2-4.2); Glucose 128 mg/dL (74-106); Potassium 3.6 mmol/L (3.5-5.1); Protein, Total 6.5 g/dL (6.4-8.2); Sodium Level 143 mmol/L (136-145); Thyroid Stim Hormone (TSH) 3.47 uIU/mL (0.358-3.74)
== END ==
PROVIDERS: Family Provider Family Medicine Geriatric Medicine; PCP Family Medicine Geriatric Medicine; Visit Provider Family Medicine Geriatric Medicine
DX: E11.9 Type 2 diabetes mellitus without complications (principal); E55.9 Vitamin D deficiency, unspecified; I10 Essential (primary) hypertension
CPT/HCPCS: 36415; 80053; 82306; 84443; 85025

== ENCOUNTER → 2019-08-24 14:04 | Outpatient (CLI) | payer MEDICARE, SELFPAY ==
[2018-09-25 18:46] VITALS: BMI 26.9
[2019-08-24 15:30] LABS: Absolute Lymphocyte Count 0.74 X10^3/uL (0.83-4.51); Absolute Neutrophil Count 10.6 X10^3/uL (2.0-7.7); Basophil# 0.06 X10^3/uL; Basophil% 0.5 % (0-1); Eosinophil# 0.04 X10^3/uL; Eosinophils% 0.3 % (0-5); Hematocrit 43.8 % (37-47); Hemoglobin 13.8 g/dL (12.0-15.0); Lymphocyte # 0.74 X10^3/ul (4.0); Lymphocyte % 6.2 % (19-41); Mean Corp Hgb Conc 31.5 g/dL (32-36); Mean Corpuscular Hgb 29.8 pg (27.0-32.0); Mean Corpuscular Volume 94.6 fL (81-99); Mean Platelet Vol. 11.4 fl (6.2-12.0); Monocyte% 3.3 % (0-10); NRBC Flagged by Analyzer 0 % (0-5); Neutrophil # 10.62 X10^3/uL (2.7-7.7); Neutrophil % 88.5 % (47-70); Platelet Count 277 K/mm3 (150-450); RBC Distribution Width CV 14.4 % (11.6-14.6); RBC Distribution Width SD 49.4 fl (35.1-43.9); Red Blood Count 4.63 M/mm3 (4.2-5.4)
[2019-08-24 16:14] LABS: ALB/GLOB Ratio 0.9 RATIO (0.9-2.4); AST(SGOT) 17 U/L (15-37); Alanine Aminotransfer ALT/SGPT 26 U/L (13-56); Albumin, Serum 3.4 g/dL (3.2-5.0); Alkaline Phosphatase 65 U/L (45-117); Anion Gap 7 (5-15); BUN 24 mg/dL (7-18); BUN/Creat Ratio 22.6 RATIO (10-20); Calcium,Total 9.1 mg/dL (8.5-10.1); Chloride 103 mmol/L (98-107); Creatinine, Serum 1.06 mg/dL (0.55-1.02); EST Glomerular Filtration Rate 54 mL/min (>60); Est Glom Filt Rate - Afr Amer 66 mL/min (>60); Globulin 3.6 g/dL (2.2-4.2); Glucose 205 mg/dL (74-106); Potassium 3.7 mmol/L (3.5-5.1); Sodium Level 140 mmol/L (136-145); Thyroid Stim Hormone (TSH) 3.19 uIU/mL (0.358-3.74)
[2019-08-24 16:40] LABS: Vitamin D,25 Hydroxy 15.6 ng/mL
== END ==
PROVIDERS: PCP Family Medicine Geriatric Medicine; Visit Provider Family Medicine Geriatric Medicine
DX: E55.9 Vitamin D deficiency, unspecified (principal); I10 Essential (primary) hypertension; E11.9 Type 2 diabetes mellitus without complications
CPT/HCPCS: 36415; 80053; 82306; 83036; 84443; 85025

== ENCOUNTER → 2019-10-28 15:19 | Outpatient (CLI) | payer MEDICARE, SELFPAY ==
[2018-09-25 18:46] VITALS: BMI 26.9
--- NOTE | 2019-10-28 15:27 | RAD_ITS ---
STUDY: X-RAY CHEST REASON FOR EXAM: Female, 73 years old. INCREASED SOB/ DYSPNEA x1-2 WEEKS TECHNIQUE: PA and lateral views of the chest. COMPARISON: Comparison is made with prior examination dated September 28, 2018. FINDINGS: Surgical clips are seen in the inferior aspect of the right cervical region most likely thyroid in nature. Mild increased markings at the left lung base suggestive of linear scarring. Hyperinflation. There is no demonstrated pleural abnormality. Normal size heart. Normal mediastinum and aubrey. Normal visualized pulmonary arteries. There is atherosclerotic calcification of the aortic arch with tortuosity. The ectasia of the thoracic aorta is essentially unchanged. There are diffuse changes of the visualized thoracic spine. Normal visualized ribs, clavicles, and shoulders. There is no demonstrated abnormality of the visualized soft tissue structures of the upper abdomen. RAD/Chest PA and Lateral IMPRESSION: Stable examination. Calcification and ectasia of the aortic arch and descending thoracic aorta. Clinical correlation is recommended. A CT scan may be indicated for further evaluation. Electronically Signed: Braeden Anderson, at 15:51 EDT , Service support ,
[2019-10-28 15:45] LABS: Absolute Lymphocyte Count 1.25 X10^3/uL (0.83-4.51); Absolute Neutrophil Count 7.6 X10^3/uL (2.0-7.7); Basophil# 0.05 X10^3/uL; Basophil% 0.5 % (0-1); Eosinophil# 0.15 X10^3/uL; Eosinophils% 1.6 % (0-5); Hematocrit 40.1 % (37-47); Hemoglobin 12.7 g/dL (12.0-15.0); Lymphocyte # 1.25 X10^3/ul (4.0); Mean Corp Hgb Conc 31.7 g/dL (32-36); Mean Corpuscular Volume 91.6 fL (81-99); Mean Platelet Vol. 11.2 fl (6.2-12.0); Monocyte% 5.2 % (0-10); NRBC Flagged by Analyzer 0 % (0-5); Neutrophil # 7.59 X10^3/uL (2.7-7.7); Neutrophil % 79.3 % (47-70); Platelet Count 235 K/mm3 (150-450); RBC Distribution Width CV 13.3 % (11.6-14.6); RBC Distribution Width SD 44.9 fl (35.1-43.9); Red Blood Count 4.38 M/mm3 (4.2-5.4); White Blood Count 9.6 K/mm3 (4.4-11.0)
[2019-10-28 16:02] LABS: AST(SGOT) 16 U/L (15-37); Alanine Aminotransfer ALT/SGPT 19 U/L (13-56); Albumin, Serum 3.2 g/dL (3.2-5.0); Alkaline Phosphatase 71 U/L (45-117); Anion Gap 6 (5-15); BUN 18 mg/dL (7-18); BUN/Creat Ratio 23.1 RATIO (10-20); Calcium,Total 7.9 mg/dL (8.5-10.1); Chloride 109 mmol/L (98-107); Creatinine, Serum 0.78 mg/dL (0.55-1.02); EST Glomerular Filtration Rate 77 mL/min (>60); Est Glom Filt Rate - Afr Amer 94 mL/min (>60); Globulin 3.3 g/dL (2.2-4.2); Glucose 120 mg/dL (74-106); Potassium 3.7 mmol/L (3.5-5.1); Protein, Total 6.5 g/dL (6.4-8.2); Sodium Level 143 mmol/L (136-145); Thyroid Stim Hormone (TSH) 1.84 uIU/mL (0.358-3.74)
== END ==
PROVIDERS: PCP Family Medicine Geriatric Medicine; Referring Provider Family Medicine Geriatric Medicine; Visit Provider Family Medicine Geriatric Medicine
DX: R06.89 Other abnormalities of breathing (principal); R06.02 Shortness of breath
CPT/HCPCS: 36415; 71046; 80053; 84443; 85025

== ENCOUNTER → 2019-11-04 10:04 | Outpatient (CLI) | payer MEDICARE, SELFPAY ==
[2018-09-25 18:46] VITALS: BMI 26.9
== END ==
PROVIDERS: PCP Family Medicine Geriatric Medicine; Referring Provider Family Medicine Geriatric Medicine; Visit Provider Family Medicine Geriatric Medicine
DX: N39.0 Urinary tract infection, site not specified (principal)
CPT/HCPCS: 87086; 87088

== ENCOUNTER → 2019-11-05 07:50 | Outpatient (CLI) | payer MEDICARE, SELFPAY ==
[2018-09-25 18:46] VITALS: BMI 26.9
--- NOTE | 2019-11-05 07:51 | CT_ITS ---
STUDY: CT CHEST WITH CONTRAST REASON FOR EXAM: Female, 73 years old. AORTIC ECTASIA, SOB, DIZZINESS, NEAR SYNCOPE RADIATION DOSAGE (If Supplied By Facility): CTDIvol = ( 9.19 ) mGy, DLP = ( 372.00 ) mGycm TECHNIQUE: Transaxial imaging was performed following intravenous administration of IV 100mL Isovue-300. Multiplanar coronal and sagittal images were reformatted. Individualized dose optimization techniques were used for this CT. COMPARISON: None. FINDINGS: Small bilateral benign-appearing axillary lymph nodes. Mild degree of increased markings at the lung bases suggestive of scarring. Focal bronchiectasis is seen in the posterior medial segment of the left lower lobe. There is no demonstrated pleural abnormality. Normal heart and pericardium. There are multiple small lymph nodes within the mediastinum, which are normal in size and morphology most compatible with reactive lymph hyperplasia. Normal hilar regions. Normal enhanced pulmonary arteries. There is aneurysmal dilatation of the descending thoracic aorta just distal to the aortic arch extending down into the diaphragmatic hiatus. The maximum transverse dimension measures 6.3 cm. There is a moderate amount of the mural thrombus along the posterior aspect of the aneurysm. Mild degree of atherosclerotic calcification of the aortic arch. There are multi-level degenerative changes of the thoracic spine. Small hiatal hernia. The patient is status post cholecystectomy. CT/Chest WITH Contrast IMPRESSION: Aneurysmal dilatation of the descending thoracic aorta with transverse dimension of 6.3 cm. There is evidence of mural thrombus especially along its posterior aspect. Electronically Signed: Braeden Anderson, at 8:49 EDT , Service support ,
== END ==
PROVIDERS: PCP Family Medicine Geriatric Medicine; Referring Provider Family Medicine Geriatric Medicine; Visit Provider Family Medicine Geriatric Medicine
DX: I77.819 Aortic ectasia, unspecified site (principal)
CPT/HCPCS: 71260; Q9967

== ENCOUNTER → 2019-12-16 12:49 | Outpatient (CLI) | payer MEDICARE, SELFPAY ==
[2018-09-25 18:46] VITALS: BMI 26.9
[2019-12-16 13:28] LABS: Absolute Lymphocyte Count 0.96 X10^3/uL (0.83-4.51); Absolute Neutrophil Count 8.8 X10^3/uL (2.0-7.7); Basophil# 0.05 X10^3/uL; Basophil% 0.4 % (0-1); Eosinophil# 0.67 X10^3/uL; Eosinophils% 5.9 % (0-5); Hematocrit 30.6 % (37-47); Hemoglobin 9.6 g/dL (12.0-15.0); Lymphocyte # 0.96 X10^3/ul (4.0); Lymphocyte % 8.5 % (19-41); Mean Corp Hgb Conc 31.4 g/dL (32-36); Mean Corpuscular Hgb 28.6 pg (27.0-32.0); Mean Corpuscular Volume 91.1 fL (81-99); Mean Platelet Vol. 10.3 fl (6.2-12.0); Monocyte# 0.71 X10^3/uL; Monocyte% 6.3 % (0-10); NRBC Flagged by Analyzer 0 % (0-5); Neutrophil # 8.81 X10^3/uL (2.7-7.7); Neutrophil % 77.5 % (47-70); Platelet Count 423 K/mm3 (150-450); RBC Distribution Width CV 14.6 % (11.6-14.6); RBC Distribution Width SD 47.8 fl (35.1-43.9); Red Blood Count 3.36 M/mm3 (4.2-5.4); White Blood Count 11.4 K/mm3 (4.4-11.0)
[2019-12-16 13:39] LABS: ALB/GLOB Ratio 0.6 RATIO (0.9-2.4); AST(SGOT) 17 U/L (15-37); Alanine Aminotransfer ALT/SGPT 21 U/L (13-56); Albumin, Serum 2.6 g/dL (3.2-5.0); Alkaline Phosphatase 72 U/L (45-117); Anion Gap 8 (5-15); BUN 16 mg/dL (7-18); Calcium,Total 8.5 mg/dL (8.5-10.1); Chloride 102 mmol/L (98-107); Creatinine, Serum 0.89 mg/dL (0.55-1.02); EST Glomerular Filtration Rate 66 mL/min (>60); Est Glom Filt Rate - Afr Amer 80 mL/min (>60); Globulin 4.2 g/dL (2.2-4.2); Glucose 122 mg/dL (74-106); Protein, Total 6.8 g/dL (6.4-8.2); Sodium Level 139 mmol/L (136-145)
[2019-12-16 13:49] LABS: Vitamin D,25 Hydroxy 24.2 ng/mL
== END ==
PROVIDERS: PCP Family Medicine Geriatric Medicine; Visit Provider Family Medicine Geriatric Medicine
DX: E11.9 Type 2 diabetes mellitus without complications (principal); E55.9 Vitamin D deficiency, unspecified; I10 Essential (primary) hypertension
CPT/HCPCS: 36415; 80053; 82306; 84443; 85025

== ENCOUNTER → 2020-01-28 08:33 | Outpatient (CLI) | payer MEDICARE, SELFPAY ==
[2018-09-25 18:46] VITALS: BMI 26.9
--- NOTE | 2020-01-28 08:48 | BI_ITS ---
MAMMOGRAPHY - BILATERAL SCREENING REASON FOR EXAM: Female, 74 years old. Routine annual screening examination. PERTINENT HISTORY: Non-contributory. Remote left excisional breast biopsy. TECHNIQUE: Digital bilateral breast ted (3D mammographic acquisition) in the CC and MLO projections. 2-D mediolateral oblique (MLO) and craniocaudad (CC) views of both breasts were obtained. CAD: Full Field Digital Mammography with Computer Added Detection was performed. COMPARISON: Comparison is made with prior examination dated 11/05/2018 and 08/21/2017. FINDINGS: Breast Composition: There are scattered areas of fibroglandular density. There are no dominant masses or suspicious calcifications. Stable small benign-appearing bilateral axillary lymph nodes. No other significant abnormalities are identified. There has been no significant change since the prior study. BI/SCREENING MAMM (CAD), BILAT IMPRESSION: Stable bilateral screening mammogram. Yearly follow-up mammogram recommended. (A) ASSESSMENT CATEGORY: BIRADS Category 2: Benign. A letter regarding these results will be sent to the patient by the facility within 30 days. Approximately 10% of breast cancers are not detected by mammography. A normal mammogram should not delay biopsy of a clinically suspicious abnormality. [id number] Electronically Signed: Braeden Anderson, at 10:36 EDT , Service support ,
== END ==
PROVIDERS: PCP Family Medicine Geriatric Medicine; Referring Provider Family Medicine Geriatric Medicine; Visit Provider Family Medicine Geriatric Medicine
DX: Z12.31 Encounter for screening mammogram for malignant neoplasm of breast (principal)
CPT/HCPCS: 77067

== ENCOUNTER → 2020-02-03 15:18 | Outpatient (CLI) | payer MEDICARE, SELFPAY ==
[2018-09-25 18:46] VITALS: BMI 26.9
[2020-02-03 17:41] LABS: Thyroid Stim Hormone (TSH) 1.64 uIU/mL (0.358-3.74)
[2020-02-03 17:48] LABS: Hematocrit 36.4 % (37-47)
== END ==
PROVIDERS: PCP Family Medicine Geriatric Medicine; Visit Provider Family Medicine Geriatric Medicine
DX: D64.9 Anemia, unspecified (principal); E03.9 Hypothyroidism, unspecified
CPT/HCPCS: 36415; 84443; 85014; 85018

== ENCOUNTER → 2020-03-15 11:40 | Outpatient (CLI) | payer MEDICARE, SELFPAY ==
[2018-09-25 18:46] VITALS: BMI 26.9
[2020-03-15 12:27] LABS: Absolute Lymphocyte Count 1.55 X10^3/uL (0.83-4.51); Absolute Neutrophil Count 3.7 X10^3/uL (2.0-7.7); Basophil# 0.04 X10^3/uL; Basophil% 0.7 % (0-1); Eosinophil# 0.34 X10^3/uL; Eosinophils% 5.5 % (0-5); Hematocrit 38.4 % (37-47); Hemoglobin 11.5 g/dL (12.0-15.0); Lymphocyte # 1.55 X10^3/ul (4.0); Lymphocyte % 25.2 % (19-41); Mean Corp Hgb Conc 29.9 g/dL (32-36); Mean Corpuscular Hgb 24.9 pg (27.0-32.0); Mean Corpuscular Volume 83.3 fL (81-99); Monocyte# 0.52 X10^3/uL; Monocyte% 8.5 % (0-10); NRBC Flagged by Analyzer 0 % (0-5); Neutrophil # 3.67 X10^3/uL (2.7-7.7); Neutrophil % 59.8 % (47-70); Platelet Count 291 K/mm3 (150-450); RBC Distribution Width CV 15.4 % (11.6-14.6); RBC Distribution Width SD 46.5 fl (35.1-43.9); Red Blood Count 4.61 M/mm3 (4.2-5.4); White Blood Count 6.1 K/mm3 (4.4-11.0)
[2020-03-15 12:52] LABS: ALB/GLOB Ratio 0.9 RATIO (0.9-2.4); AST(SGOT) 19 U/L (15-37); Alanine Aminotransfer ALT/SGPT 18 U/L (13-56); Albumin, Serum 3.1 g/dL (3.2-5.0); Alkaline Phosphatase 94 U/L (45-117); Anion Gap 3 (5-15); BUN 19 mg/dL (7-18); BUN/Creat Ratio 23.6 RATIO (10-20); Chloride 107 mmol/L (98-107); EST Glomerular Filtration Rate 74 mL/min (>60); Est Glom Filt Rate - Afr Amer 90 mL/min (>60); Globulin 3.6 g/dL (2.2-4.2); Glucose 151 mg/dL (74-106); Potassium 4.1 mmol/L (3.5-5.1); Protein, Total 6.7 g/dL (6.4-8.2); Sodium Level 141 mmol/L (136-145); Thyroid Stim Hormone (TSH) 0.49 uIU/mL (0.358-3.74)
[2020-03-15 12:58] LABS: Vitamin D,25 Hydroxy 26.4 ng/mL
== END ==
PROVIDERS: PCP Family Medicine Geriatric Medicine; Visit Provider Family Medicine Geriatric Medicine
DX: E11.9 Type 2 diabetes mellitus without complications (principal); E55.9 Vitamin D deficiency, unspecified; I10 Essential (primary) hypertension
CPT/HCPCS: 36415; 80053; 82306; 84443; 85025

== ENCOUNTER → 2020-07-19 13:53 | Outpatient (CLI) | payer MEDICARE, SELFPAY ==
[2018-09-25 18:46] VITALS: BMI 26.9
[2020-07-19 16:12] LABS: Absolute Lymphocyte Count 1.17 X10^3/uL (0.83-4.51); Absolute Neutrophil Count 7.3 X10^3/uL (2.0-7.7); Basophil# 0.05 X10^3/uL; Basophil% 0.5 % (0-1); Eosinophil# 0.25 X10^3/uL; Eosinophils% 2.6 % (0-5); Hematocrit 38.1 % (37-47); Hemoglobin 11.4 g/dL (12.0-15.0); Lymphocyte # 1.17 X10^3/ul (4.0); Lymphocyte % 12.2 % (19-41); Mean Corp Hgb Conc 29.9 g/dL (32-36); Mean Platelet Vol. 10.4 fl (6.2-12.0); Monocyte% 8.4 % (0-10); NRBC Flagged by Analyzer 0 % (0-5); Neutrophil # 7.27 X10^3/uL (2.7-7.7); Neutrophil % 75.9 % (47-70); Platelet Count 286 K/mm3 (150-450); RBC Distribution Width CV 14.9 % (11.6-14.6); RBC Distribution Width SD 47.8 fl (35.1-43.9); Red Blood Count 4.38 M/mm3 (4.2-5.4); White Blood Count 9.6 K/mm3 (4.4-11.0)
[2020-07-19 16:43] LABS: Vitamin D,25 Hydroxy 19.1 ng/mL
[2020-07-19 16:46] LABS: Hemoglobin A1c 6.1 % (3.8-5.6)
[2020-07-19 16:51] LABS: ALB/GLOB Ratio 0.9 RATIO (0.9-2.4); AST(SGOT) 9 U/L (15-37); Alanine Aminotransfer ALT/SGPT 19 U/L (13-56); Albumin, Serum 3.2 g/dL (3.2-5.0); Alkaline Phosphatase 81 U/L (45-117); Anion Gap 3 (5-15); BUN 23 mg/dL (7-18); BUN/Creat Ratio 30.7 RATIO (10-20); Calcium,Total 8.5 mg/dL (8.5-10.1); Chloride 106 mmol/L (98-107); Cholesterol 180 mg/dL (200); Creatinine, Serum 0.75 mg/dL (0.55-1.02); EST Glomerular Filtration Rate 81 mL/min (>60); Est Glom Filt Rate - Afr Amer 98 mL/min (>60); Globulin 3.6 g/dL (2.2-4.2); Glucose 100 mg/dL (74-106); High Density Lipoprotein 47 mg/dL; Potassium 4.1 mmol/L (3.5-5.1); Protein, Total 6.8 g/dL (6.4-8.2); Sodium Level 140 mmol/L (136-145); Thyroid Stim Hormone (TSH) 0.63 uIU/mL (0.358-3.74); Triglycerides 193 mg/dL; Very Low Density Lipoprotein 39 mg/dL (5-40)
== END ==
PROVIDERS: PCP Family Medicine Geriatric Medicine; Visit Provider Family Medicine Geriatric Medicine
DX: E11.9 Type 2 diabetes mellitus without complications (principal); E55.9 Vitamin D deficiency, unspecified; E78.5 Hyperlipidemia, unspecified; I10 Essential (primary) hypertension
CPT/HCPCS: 36415; 80053; 80061; 82306; 83036; 84443; 85025

== ENCOUNTER → 2020-07-27 12:17 | Outpatient (CLI) | payer MEDICARE, SELFPAY ==
[2018-09-25 18:46] VITALS: BMI 26.9
--- NOTE | 2020-07-27 12:20 | US_ITS ---
STUDY: THYROID ULTRASOUND REASON FOR EXAM: Female, 74 years old. Goiter -- patient had thyroid removed - now concern for goiter re-growth d/t choking sensation TECHNIQUE: Ultrasound evaluation of the thyroid was performed with real-time and static bauman-scale imaging. COMPARISON: None. FINDINGS: RIGHT LOBE: Status post resection. LEFT LOBE: Status post resection. There is a 1.3 cm x 0.6 cm x 0.4 cm benign-appearing lymph node in the left cervical region. US/Head/Neck Soft Tissue IMPRESSION: 1.3 cm x 0.6 cm x 0.4 cm benign-appearing lymph node in the left cervical region. Electronically Signed: Braeden Anderson MD at 14:24 EST , Service support ,
== END ==
PROVIDERS: PCP Family Medicine Geriatric Medicine; Visit Provider Family Medicine Geriatric Medicine
DX: E04.9 Nontoxic goiter, unspecified (principal)
CPT/HCPCS: 76536

== ENCOUNTER → 2020-10-18 11:15 | Outpatient (CLI) | payer MEDICARE, SELFPAY ==
[2018-09-25 18:46] VITALS: BMI 26.9
[2020-10-18 12:04] LABS: Absolute Lymphocyte Count 2.54 X10^3/uL (0.83-4.51); Absolute Neutrophil Count 7.2 X10^3/uL (2.0-7.7); Basophil# 0.07 X10^3/uL; Basophil% 0.6 % (0-1); Eosinophil# 0.36 X10^3/uL; Eosinophils% 3.3 % (0-5); Hematocrit 41.9 % (37-47); Lymphocyte # 2.54 X10^3/ul (0.83-4.51); Mean Corpuscular Hgb 26.9 pg (27.0-32.0); Mean Corpuscular Volume 86.6 fL (81-99); Mean Platelet Vol. 10.8 fl (6.2-12.0); Monocyte# 0.79 X10^3/uL; Monocyte% 7.2 % (0-10); NRBC Flagged by Analyzer 0 % (0-5); Neutrophil # 7.22 X10^3/uL (2.7-7.7); Neutrophil % 65.4 % (47-70); Platelet Count 332 K/mm3 (150-450); RBC Distribution Width CV 14.9 % (11.6-14.6); RBC Distribution Width SD 47.3 fl (35.1-43.9); Red Blood Count 4.84 M/mm3 (4.2-5.4)
[2020-10-18 12:21] LABS: Vitamin D,25 Hydroxy 22.2 ng/mL
[2020-10-18 12:26] LABS: ALB/GLOB Ratio 0.9 RATIO (0.9-2.4); AST(SGOT) 15 U/L (15-37); Alanine Aminotransfer ALT/SGPT 23 U/L (13-56); Albumin, Serum 3.4 g/dL (3.2-5.0); Alkaline Phosphatase 85 U/L (45-117); Anion Gap 5 (5-15); BUN 17 mg/dL (7-18); BUN/Creat Ratio 18.1 RATIO (10-20); Chloride 103 mmol/L (98-107); Creatinine, Serum 0.94 mg/dL (0.55-1.02); EST Glomerular Filtration Rate 62 mL/min (>60); Est Glom Filt Rate - Afr Amer 75 mL/min (>60); Globulin 3.8 g/dL (2.2-4.2); Glucose 98 mg/dL (74-106); Potassium 3.7 mmol/L (3.5-5.1); Protein, Total 7.2 g/dL (6.4-8.2); Sodium Level 140 mmol/L (136-145); Thyroid Stim Hormone (TSH) 0.64 uIU/mL (0.358-3.74)
== END ==
PROVIDERS: PCP Family Medicine Geriatric Medicine; Visit Provider Family Medicine Geriatric Medicine
DX: E11.9 Type 2 diabetes mellitus without complications (principal); E55.9 Vitamin D deficiency, unspecified; I10 Essential (primary) hypertension
CPT/HCPCS: 36415; 80053; 82306; 84443; 85025

== ENCOUNTER → 2020-11-20 16:35 | Outpatient (CLI) | payer MEDICARE, SELFPAY ==
[2018-09-25 18:46] VITALS: BMI 26.9
[2020-11-20 17:24] LABS: Absolute Lymphocyte Count 0.98 X10^3/uL (0.83-4.51); Absolute Neutrophil Count 5.3 X10^3/uL (2.0-7.7); Basophil# 0.04 X10^3/uL; Basophil% 0.6 % (0-1); Eosinophil# 0.23 X10^3/uL; Eosinophils% 3.3 % (0-5); Hematocrit 40.1 % (37-47); Hemoglobin 12.7 g/dL (12.0-15.0); Lymphocyte # 0.98 X10^3/ul (0.83-4.51); Lymphocyte % 13.9 % (19-41); Mean Corp Hgb Conc 31.7 g/dL (32-36); Mean Corpuscular Volume 85.3 fL (81-99); Mean Platelet Vol. 10.5 fl (6.2-12.0); Monocyte# 0.45 X10^3/uL; Monocyte% 6.4 % (0-10); NRBC Flagged by Analyzer 0 % (0-5); Neutrophil # 5.32 X10^3/uL (2.7-7.7); Neutrophil % 75.4 % (47-70); Platelet Count 209 K/mm3 (150-450); RBC Distribution Width CV 15.5 % (11.6-14.6); RBC Distribution Width SD 48.2 fl (35.1-43.9); White Blood Count 7.1 K/mm3 (4.4-11.0)
--- NOTE | 2020-11-20 17:55 | RAD_ITS ---
STUDY: X-RAY CHEST REASON FOR EXAM: Female, 74 years old. Shortness of breath TECHNIQUE: Frontal and lateral views of the chest COMPARISON: 10/28/19 FINDINGS: The lungs are clear. There are no pleural effusions. There is no pneumothorax. The heart is stable in size. There has been interval placement of a thoracic aortic stent. The visualized osseous structures are within normal limits. RAD/Chest PA and Lateral IMPRESSION: Interval placement of a thoracic aortic stent. No pulmonary infiltrates or pleural effusions. Electronically Signed: Hany Ramey MD at 16:57 EDT Tel , Service support ,
--- NOTE | 2020-11-20 18:03 | RAD_ITS ---
STUDY: X-RAY - ABDOMEN/PELVIS REASON FOR EXAM: Female, 74 years old. Abdominal pain TECHNIQUE: Two AP supine views of the abdomen and pelvis. COMPARISON: None. FINDINGS: There is a stent in the visualized lower thoracic aorta. There are mildly air-filled dilated loops of small bowel in the right mid to lower abdomen. There are degenerative changes noted in the spine and hips. There are left sided hip screws in place. RAD/Abdomen Single View IMPRESSION: Air-filled mildly dilated loops of small bowel in the right mid to lower abdomen. This may be due to ileus or obstruction. Clinical correlation is recommended. Electronically Signed: Hany Ramey MD at 16:59 EDT Tel , Service support ,
[2020-11-20 18:34] LABS: ALB/GLOB Ratio 0.8 RATIO (0.9-2.4); AST(SGOT) 76 U/L (15-37); Alanine Aminotransfer ALT/SGPT 111 U/L (13-56); Alkaline Phosphatase 216 U/L (45-117); Anion Gap 7 (5-15); BUN 23 mg/dL (7-18); BUN/Creat Ratio 26.2 RATIO (10-20); Calcium,Total 8.4 mg/dL (8.5-10.1); Chloride 103 mmol/L (98-107); Creatinine, Serum 0.88 mg/dL (0.55-1.02); EST Glomerular Filtration Rate 67 mL/min (>60); Est Glom Filt Rate - Afr Amer 81 mL/min (>60); Glucose 135 mg/dL (74-106); Potassium 3.5 mmol/L (3.5-5.1); Sodium Level 135 mmol/L (136-145); Thyroid Stim Hormone (TSH) 0.58 uIU/mL (0.358-3.74)
== END ==
PROVIDERS: PCP Family Medicine Geriatric Medicine; Visit Provider Family Medicine Geriatric Medicine
DX: I10 Essential (primary) hypertension (principal); R06.02 Shortness of breath; R10.9 Unspecified abdominal pain; N39.0 Urinary tract infection, site not specified
CPT/HCPCS: 36415; 71046; 74018; 80053; 84443; 85025; 87077; 87086; 87088; 87186

== ENCOUNTER → 2020-11-22 13:54 | Outpatient (CLI) | payer MEDICARE, SELFPAY ==
[2018-09-25 18:46] VITALS: BMI 26.9
== END ==
PROVIDERS: PCP Family Medicine Geriatric Medicine; Referring Provider Family Medicine Geriatric Medicine; Visit Provider Family Medicine Geriatric Medicine
DX: R68.83 Chills (without fever) (principal)
CPT/HCPCS: 87633; 87635; C9803; U0005; U0003

== ENCOUNTER → 2020-12-07 17:55 | Outpatient (CLI) | payer MEDICARE, SELFPAY ==
[2018-09-25 18:46] VITALS: BMI 26.9
--- NOTE | 2020-12-07 18:10 | RAD_ITS ---
STUDY: X-RAY - ABDOMEN/PELVIS REASON FOR EXAM: Female, 75 years old. Diarrhea TECHNIQUE: AP supine and upright views of the abdomen and pelvis. COMPARISON: None. FINDINGS: Normal visualized lung bases. There is an unremarkable bowel gas pattern. There is no demonstrated free abdominal air. The visualized liver, spleen and kidneys are grossly normal in size and morphology. Normal soft tissue structures. Mild dextroscoliosis of the lumbar spine with degenerative disc disease. RAD/Abd Inc Decub and/or Erect IMPRESSION: Normal x-ray examination of the abdomen and pelvis. Electronically Signed: Donato Maxwell MD at 17:03 EDT Tel , Service support ,
== END ==
PROVIDERS: PCP Family Medicine Geriatric Medicine; Referring Provider Family Medicine Geriatric Medicine; Visit Provider Family Medicine Geriatric Medicine
DX: N39.0 Urinary tract infection, site not specified (principal)
CPT/HCPCS: 74019; 87086; 87088

== ENCOUNTER → 2020-12-08 10:57 | Outpatient (CLI) | payer MEDICARE, SELFPAY ==
[2018-09-25 18:46] VITALS: BMI 26.9
[2020-12-08 12:19] LABS: Absolute Lymphocyte Count 1.09 X10^3/uL (0.83-4.51); Absolute Neutrophil Count 6.8 X10^3/uL (2.0-7.7); Basophil# 0.07 X10^3/uL; Basophil% 0.8 % (0-1); Eosinophils% 5.4 % (0-5); Hematocrit 39.5 % (37-47); Hemoglobin 12.6 g/dL (12.0-15.0); Lymphocyte # 1.09 X10^3/ul (0.83-4.51); Lymphocyte % 11.8 % (19-41); Mean Corp Hgb Conc 31.9 g/dL (32-36); Mean Corpuscular Hgb 27.6 pg (27.0-32.0); Mean Corpuscular Volume 86.4 fL (81-99); Monocyte# 0.73 X10^3/uL; Monocyte% 7.9 % (0-10); NRBC Flagged by Analyzer 0 % (0-5); Neutrophil # 6.82 X10^3/uL (2.7-7.7); Neutrophil % 73.7 % (47-70); Platelet Count 239 K/mm3 (150-450); RBC Distribution Width CV 16.2 % (11.6-14.6); RBC Distribution Width SD 49.9 fl (35.1-43.9); Red Blood Count 4.57 M/mm3 (4.2-5.4); White Blood Count 9.3 K/mm3 (4.4-11.0)
[2020-12-08 12:28] LABS: ALB/GLOB Ratio 0.9 RATIO (0.9-2.4); AST(SGOT) 11 U/L (15-37); Alanine Aminotransfer ALT/SGPT 21 U/L (13-56); Albumin, Serum 3.2 g/dL (3.2-5.0); Alkaline Phosphatase 86 U/L (45-117); Anion Gap 7 (5-15); BUN 36 mg/dL (7-18); Calcium,Total 10.9 mg/dL (8.5-10.1); Chloride 102 mmol/L (98-107); Creatinine, Serum 1.44 mg/dL (0.55-1.02); EST Glomerular Filtration Rate 38 mL/min (>60); Est Glom Filt Rate - Afr Amer 46 mL/min (>60); Globulin 3.7 g/dL (2.2-4.2); Glucose 111 mg/dL (74-106); Potassium 3.5 mmol/L (3.5-5.1); Protein, Total 6.9 g/dL (6.4-8.2); Sodium Level 138 mmol/L (136-145); Thyroid Stim Hormone (TSH) 3.55 uIU/mL (0.358-3.74)
== END ==
PROVIDERS: PCP Family Medicine Geriatric Medicine; Visit Provider Family Medicine Geriatric Medicine
DX: R53.83 Other fatigue (principal)
CPT/HCPCS: 36415; 80053; 84443; 85025

== ENCOUNTER → 2020-12-14 11:28 | Outpatient (CLI) | payer MEDICARE, SELFPAY ==
[2018-09-25 18:46] VITALS: BMI 26.9
== END ==
PROVIDERS: PCP Family Medicine Geriatric Medicine; Visit Provider Family Medicine Geriatric Medicine
DX: R19.7 Diarrhea, unspecified (principal)
CPT/HCPCS: 82274; 83630; 87177; 87209; 87493; 87506

== ENCOUNTER → 2020-12-19 09:18 | Outpatient (CLI) | payer MEDICARE, SELFPAY ==
[2018-09-25 18:46] VITALS: BMI 26.9
[2020-12-19 12:42] LABS: Absolute Lymphocyte Count 1.42 X10^3/uL (0.83-4.51); Absolute Neutrophil Count 5.5 X10^3/uL (2.0-7.7); Basophil# 0.07 X10^3/uL; Basophil% 0.9 % (0-1); Eosinophil# 0.25 X10^3/uL; Eosinophils% 3.1 % (0-5); Hematocrit 41.7 % (37-47); Hemoglobin 13.1 g/dL (12.0-15.0); Lymphocyte # 1.42 X10^3/ul (0.83-4.51); Lymphocyte % 17.8 % (19-41); Mean Corp Hgb Conc 31.4 g/dL (32-36); Mean Corpuscular Hgb 27.8 pg (27.0-32.0); Mean Corpuscular Volume 88.3 fL (81-99); Mean Platelet Vol. 10.9 fl (6.2-12.0); Monocyte# 0.66 X10^3/uL; Monocyte% 8.3 % (0-10); NRBC Flagged by Analyzer 0 % (0-5); Neutrophil # 5.53 X10^3/uL (2.7-7.7); Neutrophil % 69.4 % (47-70); Platelet Count 251 K/mm3 (150-450); RBC Distribution Width CV 17.1 % (11.6-14.6); RBC Distribution Width SD 55.3 fl (35.1-43.9); Red Blood Count 4.72 M/mm3 (4.2-5.4)
[2020-12-19 13:04] LABS: ALB/GLOB Ratio 0.9 RATIO (0.9-2.4); AST(SGOT) 20 U/L (15-37); Alanine Aminotransfer ALT/SGPT 25 U/L (13-56); Albumin, Serum 3.4 g/dL (3.2-5.0); Alkaline Phosphatase 117 U/L (45-117); Anion Gap 7 (5-15); BUN 23 mg/dL (7-18); BUN/Creat Ratio 21.3 RATIO (10-20); Calcium,Total 9.5 mg/dL (8.5-10.1); Chloride 104 mmol/L (98-107); Creatinine, Serum 1.08 mg/dL (0.55-1.02); EST Glomerular Filtration Rate 53 mL/min (>60); Est Glom Filt Rate - Afr Amer 64 mL/min (>60); Globulin 3.6 g/dL (2.2-4.2); Glucose 105 mg/dL (74-106); Potassium 3.9 mmol/L (3.5-5.1); Sodium Level 140 mmol/L (136-145); Thyroid Stim Hormone (TSH) 1.28 uIU/mL (0.358-3.74)
== END ==
PROVIDERS: PCP Family Medicine Geriatric Medicine; Referring Provider Family Medicine Geriatric Medicine; Visit Provider Family Medicine Geriatric Medicine
DX: E11.9 Type 2 diabetes mellitus without complications (principal); E55.9 Vitamin D deficiency, unspecified; I10 Essential (primary) hypertension
CPT/HCPCS: 36415; 80053; 82306; 84443; 85025

== ENCOUNTER → 2021-01-29 13:59 | Outpatient (CLI) | payer MEDICARE, SELFPAY ==
[2018-09-25 18:46] VITALS: BMI 26.9
--- NOTE | 2021-01-29 14:02 | BI_ITS ---
MAMMOGRAPHY - BILATERAL SCREENING REASON FOR EXAM: Female, 75 years old. Routine annual screening examination. PERTINENT HISTORY: TECHNIQUE: Digital bilateral breast danielle (3D mammographic acquisition) in the CC and MLO projections. 2-D mediolateral oblique (MLO) and craniocaudad (CC) views of both breasts were obtained. CAD: Full Field Digital Mammography with Computer Added Detection was performed. COMPARISON: None. FINDINGS: Breast Composition: Fatty There are no dominant masses or suspicious calcifications. No other significant abnormalities are identified. BI/SCRN MAMM (CAD)W/DANIELLE BILAT IMPRESSION: Stable bilateral screening mammogram. Yearly follow-up mammogram recommended. (A) ASSESSMENT CATEGORY: BIRADS Category 1: Negative. A letter regarding these results will be sent to the patient by the facility within 30 days. Approximately 10% of breast cancers are not detected by mammography. A normal mammogram should not delay biopsy of a clinically suspicious abnormality. [id number] Electronically Signed: Morales Padilla DO at 14:08 EDT Tel , Service support ,
== END ==
PROVIDERS: PCP Family Medicine Geriatric Medicine; Referring Provider Family Medicine Geriatric Medicine; Visit Provider Family Medicine Geriatric Medicine
DX: Z12.31 Encounter for screening mammogram for malignant neoplasm of breast (principal)
CPT/HCPCS: 77063; 77067

== ENCOUNTER → 2021-04-05 15:40 | Outpatient (CLI) | payer MEDICARE, SELFPAY ==
[2021-04-05 16:23] LABS: Hematocrit 40.1 % (37-47); Hemoglobin 12.6 g/dL (12.0-15.0); Mean Corp Hgb Conc 31.4 g/dL (32-36); Mean Corpuscular Hgb 29.1 pg (27.0-32.0); Mean Corpuscular Volume 92.6 fL (81-99); Mean Platelet Vol. 10.6 fl (6.2-12.0); Platelet Count 227 K/mm3 (150-450); RBC Distribution Width CV 14.1 % (11.6-14.6); RBC Distribution Width SD 47.6 fl (35.1-43.9); Red Blood Count 4.33 M/mm3 (4.2-5.4)
[2021-04-05 16:31] LABS: Erythrocyte Sedimentation Rate 8 mm/hr (0-30)
[2021-04-05 17:05] LABS: Vitamin B12 411 pg/mL (211-911)
[2021-04-05 17:46] LABS: ALB/GLOB Ratio 0.8 RATIO (0.9-2.4); AST(SGOT) 14 U/L (15-37); Alanine Aminotransfer ALT/SGPT 27 U/L (13-56); Alkaline Phosphatase 67 U/L (45-117); Anion Gap 6 (5-15); BUN 20 mg/dL (7-18); BUN/Creat Ratio 22.7 RATIO (10-20); CRP < 2.90 mg/L (0.0-3.0); Calcium,Total 8.5 mg/dL (8.5-10.1); Chloride 104 mmol/L (98-107); Creatinine, Serum 0.88 mg/dL (0.55-1.02); EST Glomerular Filtration Rate 67 mL/min (>60); Est Glom Filt Rate - Afr Amer 81 mL/min (>60); Globulin 3.6 g/dL (2.2-4.2); Glucose 105 mg/dL (74-106); Potassium 4.2 mmol/L (3.5-5.1); Protein, Total 6.6 g/dL (6.4-8.2); Sodium Level 141 mmol/L (136-145)
[2021-04-09 14:17] LABS: ANTINUCLEAR ANTIBODIES DIRECT Negative (Negative)
[2021-04-10 19:56] LABS: Vitamin B1, Thiamine 182.1 nmol/L (66.5-200.0)
== END ==
PROVIDERS: Psychiatry & Neurology Neurology; PCP Family Medicine Geriatric Medicine; Visit Provider Internal Medicine Gastroenterology
DX: G31.84 Mild cognitive impairment of uncertain or unknown etiology (principal); R44.3 Hallucinations, unspecified; F32.9 Major depressive disorder, single episode, unspecified; F41.9 Anxiety disorder, unspecified; I10 Essential (primary) hypertension; G93.40 Encephalopathy, unspecified; R53.83 Other fatigue; Z87.39 Personal history of other diseases of the musculoskeletal system and connective tissue
CPT/HCPCS: 36415; 80053; 82140; 82607; 82746; 84425; 84443; 85027; 85652; 86038; 86140; 86225; 86235; 87077; 87086; 87088; 87186

== ENCOUNTER 2021-04-18 07:09 | Day surgery (SDC) | payer MEDICARE, SELFPAY ==
[2021-04-18 07:29] VITALS: BP 150/65; PULSE 67; RESP 16; TEMP 36.1; O2SAT 95; BMI 30.2
[2021-04-18] MEDS: Lactated Ringers 1,000 ML 100 ML IV (07:41)
[2021-04-18 07:50] LABS: Bedside Glucose 97 mg/dL (70-110)
--- NOTE | 2021-04-18 08:15 | COL_PTH ---
PATIENT: CHERRY CAMERON LOC: EN U#:[id number] AGE/SX: 75/F ROOM: RE04/18/[address]: Dr. Reagan Murrell DO : 1945 BED: DIS: 04/18/2021 SPEC #: [id number] RECD: 04/18/21 12:35 STATUS: ROX REQ #: [id number] USAMA: 04/18/21 08:[address]: Reagan Murrell DEPT: SURGICAL PATHOLOGY RECD BY: Sara Kincaid ENTERED: 04/18/21 13:14 SP TYPE: COLON OTHR DR: Dr. Mukesh Clark MD Tissues: A - Transverse colon B - Ileum, NOS C - COLON BIOPSY D - Rectum, NOS Procedures: Surgery Specimen Level IV HEADER OPERATION: Colonoscopy (MAC) PRE-OP DIAGNOSIS: Diarrhea TISSUE SUBMITTED: A ? Biopsy of transverse colon polyp, B ? Biopsy of terminal ileum, C ? Random colon biopsies, D ? Rectum biopsy MICROSCOPIC DIAGNOSIS A. Transverse colon polyp, biopsy: Tubular adenoma. B. Terminal ileum, biopsy: No pathologic change. C. Colon, random biopsy: No pathologic change. D. Rectum, biopsy: Fragments of colonic mucosa with focal hyperplastic change. AM:khushbu 04/19/2021 MICROSCOPIC DESCRIPTION Slides are reviewed. GROSS DESCRIPTION A - Received in fixative is one container labeled with the patient's name and designated transverse colon polyp biopsy. The specimen consists of one irregular fragment of light naylor soft tissue that measures 0.5 x 0.5 x 0.1 cm. The specimen is totally submitted in one cassette. B - Received in fixative is one container labeled with the patient's name and designated biopsy of terminal ileum. The specimen consists of one irregular fragment of light naylor soft tissue that measures 0.3 x 0.2 x 0.1 cm. The specimen is totally submitted in one cassette. C - Received in fixative is one container labeled with the patient's name and designated random colon biopsy. The specimen consists of multiple irregular fragments of light naylor soft tissue that in aggregate measure 2 x 1 x 0.1 cm. The specimen is totally submitted in one cassette. D - Received in fixative is one container labeled with the patient's name and designated rectum biopsy. The specimen consists of two irregular fragments of light naylor soft tissue that in aggregate measure 0.6 x 0.6 x 0.1 cm. The specimen is totally submitted in one cassette. / AM:khushbu 04/18/21 TC:5 CPT: 53765 x4
--- NOTE | 2021-04-18 08:30 | HP.PCM_ITS ---
History and Physical Date of Admission: 04/18/21 Intake Visit Reasons: microscopic colitis Chief Complaint: Repeated Falls Allergies amoxicillin Allergy (Verified 03/26/21 10:35) Itching Latex, Natural Rubber Allergy (Verified 03/26/21 10:35) Unknown Penicillins Allergy (Verified 03/26/21 10:35) Itching Medications acetaminophen [Tylenol] 650 mg PO Q6H PRN PRN tablet 09/28/18 [Rx Confirmed 03/26/21] aspirin 81 mg PO DAILY@0800 #30 tablet 09/28/18 [Rx Confirmed 04/05/21] atorvastatin 40 mg PO QHS #30 tablet 09/28/18 [Rx Confirmed 03/26/21] amantadine HCl 100 mg capsule 100 mg PO DAILY cap 03/26/21 [History Confirmed 04/05/21] budesonide 3 mg capsule,delayed,extended release 9 mg PO DAILY ea 03/26/21 [History Confirmed 04/05/21] buspirone 5 mg tablet 5 mg PO TID #90 tab 03/26/21 [Rx Confirmed 04/05/21] carvedilol 6.25 mg tablet 6.25 mg PO BID tab 03/26/21 [History Confirmed 04/05/21] cholecalciferol (vitamin D3) 1,250 mcg (50,000 unit) capsule 1,250 mcg PO QWEEK #4 cap 03/26/21 [Rx Confirmed 04/05/21] divalproex 250 mg tablet,extended release 24 hr 250 mg PO QHS #30 tab 03/26/21 [Rx Confirmed 04/05/21] duloxetine 30 mg capsule,delayed release 30 mg PO DAILY #30 cap 03/26/21 [Rx Confirmed 04/05/21] famotidine 40 mg tablet 40 mg PO DAILY PRN 03/26/21 [History Confirmed 04/05/21] levothyroxine 125 mcg tablet 125 mcg PO DAILY tab 03/26/21 [History Confirmed 04/05/21] lisinopril 2.5 mg tablet 2.5 mg PO DAILY tab 03/26/21 [History Confirmed 03/26/21] prednisone 2.5 mg tablet 5 mg PO DAILY tab 03/26/21 [History Confirmed 04/05/21] quetiapine 150 mg tablet,extended release 24 hr 150 mg PO QHS #30 tab 03/26/21 [Rx Confirmed 04/05/21] bisacodyl 5 mg tablet,delayed release 20 mg PO ONCE #4 tab 04/05/21 [Rx Conf irmed 04/05/21] polyethylene glycol 3350 17 gram/dose oral powder 17 g PO Q10M #238 g 04/05/21 [Rx Confirmed 04/05/21] [facility] Medical History (Updated 04/05/21 @ 17:[address] Kirk Friend, DO) Anemia Back problem Cataracts, bilateral Diabetes Diarrhea Gastrointestinal problem GERD (gastroesophageal reflux disease) Goiter Heart disease High cholesterol History of carpal tunnel syndrome History of gallstones History of pneumonia History of UTI HTN (hypertension) IBS (irritable bowel syndrome) Osteoporosis Schizophrenia Vision problems Vitamin deficiency Surgical History History of cholecystectomy History of hysterectomy History of knee replacement History of thyroidectomy Family History Grandfather Myocardial infarction Parkinson disease Mother Alcoholism Depression Grandmother Depression CVA (cerebral vascular accident) Social History Smoking Status: Never smoker alcohol intake: never substance use type: does not use HPI HPI Chief Complaint: Repeated Falls Details: CHERRY CAMERON, is a 75 F who presents to the office today for evaluation of colitis. PCP referred for possible colitis with onset being about a year ago. She has a history of CAD status post TN status post PTCA with stents. She also has a history of polymyalgia rheumatica and possible giant cell arteritis. She has been having intermittent diarrhea with fecal incontinence. She is also complaining of bloating and indigestion. She started budesonide about three weeks ago. Since starting budesonide she has had one flare with diarrhea. Before starting budesonide she was having difficulty daily. She also mentions she has a lot of gas. Last colonoscopy was four years ago. She is now nervous because her has mechanical issues caused colon rupture and cancer subsequently. ROS Const Constitutional: Positive for fatigue and weight change (Gain) Gastro GI: Positive for bloating, change in bowel habits (Frequency ), diarrhea and heartburn Genitourinary-Female: Positive for urinary incontinence and urinary urgency Musc Musculoskeletal: Positive for back pain Psych Psychiatric: Positive for anxiety and Positive for depression Endo Endocrine: Positive for cold intolerance, fatigue and heat intolerance Saeid/Lymp Hematologic/Lymphatic: Positive for easy bruising Exam Const General: cooperative and comfortable Nutritional Appearance: average body habitus and well nourished [facility] Head: normal to inspection Ears: hearing grossly normal bilaterally Nose: external nose normal Face and sinus: normal facial exam Mouth: oral mucosae normal Throat: posterior oropharynx normal Eyes General: appearance normal, both eyes and all related structures Neck Neck: normal visual inspection Chest Chest palpation & inspection: normal inspection of the chest and normal palpation of entire chest wall Resp Effort & Inspection: normal respiratory effort Auscultation: Bilateral: Clear to Auscultation Cardio Palpation: normal PMI Rate: regular rate Rhythm: regular rhythm GI Inspection: normal to inspection Auscultation: normal bowel sounds Percussion: normal to percussion Palpation: no hepatosplenomegaly Skin General: no rashes or lesions noted Neuro General: patient alert Extrem General: normal to inspection Psych Affect: normal affect Quality Reporting Tobacco Screening ([facility] 138) Smoking Status: Never smoker Assessment and Plan Assessment and Plan (1) Diarrhea: Status: Acute Plan - Dr. Kirk Friend, DO: She should undergo evaluation of her upper and lower GI tract. She should see if she has any malabsorptive issues with evaluation of her small bowel. Also incisional diagnosis for bloating and diarrhea will be H. pylori associated gastritis. There is a possibility that she has dumping or accelerated gastric emptying which can also cause diarrhea, along with IBS with diarrhea. She should also undergo colonoscopy with biopsies and evaluation of the terminal ileum along with the colon. I will get an ESR and CRP. She is on 5 mg of prednisone and budesonide. Plan Details Other Medications: New: bisacodyl 20 mg (4 x 5 mg) PO ONCE 4 tabs 0RF polyethylene glycol 3350 (Miralax) 17 grams PO Q10M 238 grams 0RF This is an updated H&P from when she was seen in office. Nothing is changed since she was seen in office.
[2021-04-18 09:02] VITALS: BP 122/58; BP 150/65; PULSE 61; RESP 16; TEMP 35.7; O2SAT 100
--- NOTE | 2021-04-18 09:04 | OP.COLON_ITS ---
Patient Name: Filomena Almodovar Procedure Date: 04/18/2021 8:33 AM Date of : 1945 Age: 75 Procedure: Colonoscopy Indications: Chronic diarrhea Providers: Reagan Murrell DO Referring MD: Reagan Murrell DO Medicines: Propofol per Anesthesia Patient Profile: This is a 75 year old female. Refer to note in patient chart for documentation of history and physical. Last Colonoscopy: more than 3 years ago. Complications: No immediate complications. Procedure: Pre-Anesthesia Assessment: - Prior to the procedure, a History and Physical was performed, and patient medications and allergies were reviewed. The patient is competent. The risks and benefits of the procedure and the sedation options and risks were discussed with the patient. All questions were answered and informed consent was obtained. Patient identification and proposed procedure were verified by the physician in the pre-procedure area. Mental Status Examination: alert and oriented. Airway Examination: normal oropharyngeal airway and neck mobility. Respiratory Examination: clear to auscultation. CV Examination: normal. Prophylactic Antibiotics: The patient does not require prophylactic antibiotics. Prior Anticoagulants: The patient has taken no previous anticoagulant or antiplatelet agents. ASA Grade Assessment: II - A patient with mild systemic disease. After reviewing the risks and benefits, the patient was deemed in satisfactory condition to undergo the procedure. The anesthesia plan was to use moderate sedation / analgesia (conscious sedation). Immediately prior to administration of medications, the patient was re-assessed for adequacy to receive sedatives. The heart rate, respiratory rate, oxygen saturations, blood pressure, adequacy of pulmonary ventilation, and response to care were monitored throughout the procedure. The physical status of the patient was re-assessed after the procedure. After I obtained informed consent, the scope was passed under direct vision. Throughout the procedure, the patient's blood pressure, pulse, and oxygen saturations were monitored continuously. The Colonoscope was introduced through the anus and advanced to the terminal ileum. The colonoscopy was performed without difficulty. The patient tolerated the procedure well. The quality of the bowel preparation was good. Moderate Sedation: Moderate (conscious) sedation was administered by the endoscopy nurse and supervised by the endoscopist. The patient's oxygen saturation, heart rate, blood pressure and response to care were monitored. Total physician intraservice time was 15 minutes. Scope In: 8:42:43 AM Scope Withdrawal Time 0 hours 9 minutes 13 seconds Scope Out: 8:58:42 AM Total Procedure Duration Time 0 hours 15 minutes 59 seconds Findings: Hemorrhoids were found on perianal exam. A 5 mm polyp was found in the transverse colon. The polyp was sessile. The polyp was removed with a jumbo cold forceps. Resection and retrieval were complete. Verification of patient identification for the specimen was done. Estimated blood loss was minimal. Multiple small and large-mouthed diverticula were found in the sigmoid colon, descending colon and splenic flexure. There was evidence of an impacted diverticulum. The terminal ileum appeared normal. Biopsies were taken with a cold forceps for histology. Verification of patient identification for the specimen was done. Estimated blood loss: none. No additional abnormalities were found on retroflexion. Impression: - Hemorrhoids found on perianal exam. - One 5 mm polyp in the transverse colon, removed with a jumbo cold forceps. Resected and retrieved. - Mild diverticulosis in the sigmoid colon, in the descending colon and at the splenic flexure. There was evidence of an impacted diverticulum. - The examined portion of the ileum was normal. Biopsied. Recommendation: - Discharge patient to home. - Resume previous diet. - Continue present medications. - Await pathology results. - Repeat colonoscopy in 5 years for surveillance based on pathology results. - Return to GI office in 2 weeks. Procedure Code(s): --- Professional --- 06987, Colonoscopy, flexible; with biopsy, single or multiple G0500, Moderate sedation services provided by the same physician or other qualified health foster care case manager performing a gastrointestinal endoscopic service that sedation supports, requiring the presence of an independent trained observer to assist in the monitoring of the patient's level of consciousness and physiological status; initial 15 minutes of intra-service time; patient age 5 years or older (additional time may be reported with 08288, as appropriate) CPT copyright 2017 [employer]. All rights reserved. The codes documented in this report are preliminary and upon telecommunications line installer review may be revised to meet current compliance requirements. Reagan Murrell DO 04/18/2021 9:04:02 AM This report has been signed electronically. Number of Addenda: 1 Note Initiated On: 04/18/2021 8:33 AM Addendum Number: 1 Addendum Date: 02/28/2022 4:37:23 PM MAC was used instead of moderate sedation for this patient. Reagan Murrell DO 02/28/2022 4:37:29 PM This report has been signed electronically.
--- NOTE | 2021-04-18 09:05 | OP.CCLET_ITS ---
02/28/2022 Mukesh Clark MD [address] [place] [address] Re : Colonoscopy procedure for Filomena Almodovar Dear Dr. Clark This procedure was performed on Sunday, April 18, 2021. My impressions and recommendations are as follows: Impressions : - Hemorrhoids found on perianal exam. - One 5 mm polyp in the transverse colon, removed with a jumbo cold forceps. Resected and retrieved. - Mild diverticulosis in the sigmoid colon, in the descending colon and at the splenic flexure. There was evidence of an impacted diverticulum. - The examined portion of the ileum was normal. Biopsied. Recommendations : - Discharge patient to home. - Resume previous diet. - Continue present medications. - Await pathology results. - Repeat colonoscopy in 5 years for surveillance based on pathology results. - Return to GI office in 2 weeks. My findings are described in the full procedure note, which is enclosed. If I can be of further assistance, please feel free to contact me at . Sincerely, Reagan Murrell, 04/18/2021 9:04:02 AM This report has been signed electronically.
[2021-04-18 09:10] VITALS: BP 136/62; BP 150/65; PULSE 57; RESP 16; O2SAT 99
[2021-04-18 09:15] VITALS: BP 132/88; BP 150/65; PULSE 60; RESP 16; O2SAT 98
[2021-04-18 09:20] VITALS: BP 104/85; BP 150/65; PULSE 80; RESP 16; TEMP 35.8; O2SAT 100
[2021-04-18 09:57] VITALS: BP 150/65
--- NOTE | 2021-04-18 10:03 | PCM.HP.BLA ---
History and Physical Date of Admission: 04/18/21 Intake Visit Reasons: GERD/SCREENING FOR MALIGNANT NEOPLASM Chief Complaint: sores in mouth Allergies No Known Allergies Allergy (Verified 04/02/21 14:02) Medications amlodipine 5 mg tablet 7.5 mg PO DAILY 90 Days #135 tab 01/24/20 [Rx Confirmed 04/02/21] hydrocortisone 2.5 % topical cream 1 applic TOPICAL BID PRN #30 g 07/25/20 [Rx Confirmed 04/02/21] omeprazole 40 mg capsule,delayed release 40 mg PO DAILY #90 cap 10/24/20 [Rx Confirmed 04/02/21] buspirone 10 mg tablet 20 mg PO TID 30 Days #180 tab 01/23/21 [Rx Confirmed 04/02/21] trazodone 100 mg tablet 100 mg PO BID #180 tab 01/23/21 [Rx Confirmed 04/02/21] lidocaine HCl 2 % mucosal solution 1 applic MUCOUS MEMBRANE TID PRN #100 ml 02/14/21 [Rx Confirmed 04/02/21] atorvastatin 20 mg tablet 20 mg PO QHS #90 tab 02/22/21 [Rx Confirmed 04/02/21] levothyroxine 112 mcg tablet 112 mcg PO DAILY #90 tab 03/29/21 [Rx Confirmed 04/02/21] bisacodyl 5 mg tablet,delayed release 20 mg PO ONCE #4 tab 04/02/21 [Rx Confirmed 04/02/21] polyethylene glycol 3350 17 gram/dose oral powder 17 g PO Q10M #238 g 04/02/21 [Rx Confirmed 04/02/21] PFSH Medical History Anxiety Arthritis Back problem Colon cancer screening Depression Facial dermatitis Gallstones Gastrointestinal problem GERD (gastroesophageal reflux disease) H/O emotional problems High cholesterol Hypertension IBS (irritable bowel syndrome) Kidney stones Seasonal allergies Thyroid disease Family History Father Alcoholism Brother Alcoholism Sister Anxiety Arthritis Depression Hypertension Kidney disease hormone problems Thyroid disorder Mother Arthritis Diabetes Hypertension High cholesterol CVA (cerebral vascular accident) Thyroid disorder Social History Smoking Status: Current every day smoker alcohol intake: never substance use type: does not use what type of physical activity do you participate in: walking HPI HPI Chief Complaint: sores in mouth Details: KUMAR WHALEN, is a 75 F who presents to the office today to set up EGD and colonoscopy. She is having difficulty with nausea, heartburn with a productive cough producing white stuff that wakes her at night for about six months. She has tried multiple medicines in the past with no improvement of her symptoms. She also gets anxiety induced diarrhea. Concerns regarding strong family history of colon and others cancers. Last colonoscopy performed 10+ years ago. Hopeful to have EGD and colonoscopy. All other 16 review of systems are negative except as per positive mentioned HPI. ROS Const Constitutional: Positive for weakness; No fatigue or weight change (Gain) Eyes Eyes: No change in vision ENT ENT: No abnormal hearing, difficulty swallowing, mouth lesions, tongue swelling or throat swelling Resp Respiratory: No cough or shortness of breath Cardio Cardiology: No chest pain at rest, chest pain with exertion, shortness of breath or dyspnea on exertion Gastro GI: Positive for diarrhea, heartburn and nausea/dyspepsia; No difficulty swallowing Genitourinary-Female: No difficulty urinating or burning urination Musc Musculoskeletal: Positive for back pain, stiffness and leg pain at night Skin Skin: Positive for dry skin, itchy eyes and rash Neuro Neurology: Positive for weakness; No abnormal hearing Psych Psychiatric: Positive for anxiety and Positive for depression Endo Endocrine: No fatigue or weight change Aller/Imm Allergy/Immunologic: Positive for itchy eyes; No throat swelling or tongue swelling Saeid/Lymp Hematologic/Lymphatic: No easy bleeding, easy bruising or enlarged lymph nodes Exam Const General: cooperative and comfortable Nutritional Appearance: average body habitus and well nourished [facility] Head: normal to inspection Ears: hearing grossly normal bilaterally Nose: external nose normal Face and sinus: normal facial exam Mouth: oral mucosae normal Throat: posterior oropharynx normal Eyes General: appearance normal, both eyes and all related structures Neck Neck: normal visual inspection Chest Chest palpation & inspection: normal inspection of the chest and normal palpation of entire chest wall Resp Effort & Inspection: normal respiratory effort Auscultation: Bilateral: Clear to Auscultation Cardio Palpation: normal PMI Rate: regular rate Rhythm: regular rhythm GI Inspection: normal to inspection Auscultation: normal bowel sounds Percussion: normal to percussion Palpation: no hepatosplenomegaly Skin General: no rashes or lesions noted Neuro General: patient alert Extrem General: normal to inspection Psych Affect: normal affect Quality Reporting Tobacco Screening ([facility] 138) Smoking Status: Current every day smoker Assessment and Plan Assessment and Plan (1) GERD (gastroesophageal reflux disease): Status: Chronic Plan - Dr. Reagan Murrell, DO: We will assess her upper GI tract for hiatal hernia, gastritis, duodenitis and atypical gastroesophageal reflux disease. We will also assess her small bowel for celiac disease or medication induced injury to her upper GI tract. (2) Colon cancer screening: Status: Acute Plan - Dr. Reagan Murrell, DO: She will undergo screening colonoscopy. She was explained alternatives, risk, benefits including outstanding bleeding, infection, sepsis, perforation, need for emergency to . She will have an ASA of 2. Plan Details Other Medications: New: bisacodyl 20 mg (4 x 5 mg) PO ONCE 4 tabs 0RF polyethylene glycol 3350 (Miralax) 17 grams PO Q10M 238 grams 0RF This is an updated H&P from when the patient was seen in our office.
== END 2021-04-18 09:57 | disposition home or self-care (01) ==
LOC: EN 07:10 → AC 07:11
PROVIDERS: PCP Family Medicine Geriatric Medicine; Referring Provider Family Medicine Geriatric Medicine; Visit Provider Internal Medicine Gastroenterology
PROC: 0DJD8ZZ Inspection of Lower Intestinal Tract, Via Natural or Artificial Opening Endoscopic (ICD-10-PCS; CPT 45378; principal; 2021-04-18 08:10)
DX: D12.3 Benign neoplasm of transverse colon (principal); K57.30 Diverticulosis of large intestine without perforation or abscess without bleeding; K64.9 Unspecified hemorrhoids; I25.10 Atherosclerotic heart disease of native coronary artery without angina pectoris; K21.9 Gastro-esophageal reflux disease without esophagitis; H26.9 Unspecified cataract; E78.00 Pure hypercholesterolemia, unspecified; F20.9 Schizophrenia, unspecified; E07.9 Disorder of thyroid, unspecified; F32.A Depression, unspecified; F41.9 Anxiety disorder, unspecified; M19.90 Unspecified osteoarthritis, unspecified site; R29.6 Repeated falls; I25.2 Old myocardial infarction; Z79.52 Long term (current) use of systemic steroids; Z79.82 Long term (current) use of aspirin; Z95.5 Presence of coronary angioplasty implant and graft; Z79.899 Other long term (current) drug therapy
CPT/HCPCS: 45380; 82962; 88305; J7120; J2405

== ENCOUNTER → 2021-06-19 10:18 | Outpatient (CLI) | payer MEDICARE, SELFPAY | PROVIDERS: PCP Family Medicine Geriatric Medicine; Referring Provider Family Medicine Geriatric Medicine; Visit Provider Family Medicine Geriatric Medicine | DX: R68.83 Chills (without fever) (principal) | CPT/HCPCS: 87635; C9803; U0005; U0003 ==

== ENCOUNTER → 2021-06-28 09:47 | Outpatient (CLI) | payer MEDICARE, SELFPAY | PROVIDERS: PCP Family Medicine Geriatric Medicine; Visit Provider Family Medicine Geriatric Medicine | DX: E11.9 Type 2 diabetes mellitus without complications (principal); E55.9 Vitamin D deficiency, unspecified; I10 Essential (primary) hypertension | CPT/HCPCS: 36415; 80053; 82306; 84443 ==

== ENCOUNTER → 2021-06-28 12:19 | Outpatient (CLI) | payer MEDICARE, SELFPAY ==
--- NOTE | 2021-06-28 12:35 | MRI_ITS ---
STUDY: MRI BRAIN WITH AND WITHOUT CONTRAST REASON FOR EXAM: Female, 75 years old. mild cognitive impairment; hallucinations -- Patient had aortic aneurysm repair with stent placement in 2019 TECHNIQUE: Standardized multiplanar fat and water weighted pulse sequences were obtained. IV 14mL Dotarem was administered for the contrast portion of the examination. COMPARISON: CT 04/13/2019 FINDINGS: There is moderate cerebral atrophy with widening of the extra-axial spaces and ventricular dilatation. There are multiple white matter hyperintensities, distributed throughout the deep white matter tracts of the cerebral hemispheres, consistent with moderate chronic white matter ischemic changes. There is no evidence for recent intracranial ischemia or other cause of cytotoxic edema on diffusion weighted imaging (DWI). Normal T2* images of the brain without demonstrated susceptibility artifact. There is no demonstrated hemosiderin stain. Thin section coronal T2-weighted images through the temporal lobes demonstrate bilateral hippocampal atrophy which may be seen in cognitive decline (Alzheimer''s disease) Normal bilateral basal ganglia. Normal thalami. There is no extra-axial fluid accumulation. Normal flow voids within the major intracranial circulation suggesting patency by spin echo criteria. Normal venous enhancement. There is no enhancing intra-axial or extra-axial abnormality. Normal sella turcica, pituitary gland, infundibular stalk, optic chiasm and hypothalamus. Normal tectal plate and pineal gland. There are chronic white matter ischemic changes of the sarah. The midbrain and medulla are otherwise normal. Normal cerebellum. Normal basal cisterns. Normal bilateral temporal bones. Normal bilateral internal auditory canals. No demonstrated orbital abnormality, within the constraints of a routine brain study. Mucous retention cyst in the left maxillary sinus consistent with chronic sinusitis. Normal calvarium and skull base. Normal visualized soft tissue structures. Normal visualized upper cervical spine. MRI/Brain W/WO Contrast IMPRESSION: Involutional changes of the brain, as described above. Electronically Signed: Donato Maxwell MD at 6:37 EST Tel , Service support ,
[2021-06-28 13:45] LABS: CREATININE FINGERSTICK < 0.6 mg/dL (0.55-1.02); EGFR FINGERSTICK > 60.0000 mL/min (>60)
== END ==
PROVIDERS: PCP Family Medicine Geriatric Medicine; Referring Provider Psychiatry & Neurology Neurology; Visit Provider Psychiatry & Neurology Neurology
DX: G31.84 Mild cognitive impairment of uncertain or unknown etiology (principal)
CPT/HCPCS: 70553; A9575

== ENCOUNTER 2021-08-14 09:50 | Outpatient (CLI) | payer MEDICARE, SELFPAY ==
--- NOTE | 2021-08-14 09:54 | CDU_ITS ---
Reason For Study: Possible prior TIA, cerebral vascular disease on MRI Rt. Velocities/BP Lt. Velocities/BP Prox CCA 40.9/9.7 cm/sec. Prox CCA 45.4/10.2 cm/sec. Mid CCA 35.2/8.8 cm/sec. Mid CCA 35.2/7.8 cm/sec. Dist CCA 35.2/11.6 cm/sec. Dist CCA 30.5/9.7 cm/sec. Prox ICA 33.3/10.7 cm/sec. Prox ICA 29/11.6 cm/sec. Mid ICA 40/14.5 cm/sec. Mid ICA 43/11.6 cm/sec. Dist ICA 52.6/12.5 cm/sec. Dist ICA 67.8/18.4 cm/sec. Rt. ICA/CCA = 1.49. Lt. ICA/CCA = 1.93. Prox ECA 122.9/7.9 cm/sec. Prox ECA 34.3/3.8 cm/sec. Rt. Vert. 41/11.3. cm/sec. Lt. Vert. 38.8/10.2 cm/sec. Right Extracranial There is homogeneous, smooth atherosclerotic plaque noted in the right common carotid artery. There is homogeneous, smooth atherosclerotic plaque noted in the right internal carotid artery. There is intimal thickening but no significant atherosclerotic plaque noted in the right external carotid artery. Antegrade flow is noted in the right vertebral artery. Left Extracranial There is homogeneous, smooth atherosclerotic plaque noted in the left common carotid artery. There is intimal thickening but no significant atherosclerotic plaque noted in the left internal carotid artery. The left internal carotid artery is very tortuous. There is intimal thickening but no significant atherosclerotic plaque noted in the left external carotid artery. Antegrade flow is noted in the left vertebral artery. Procedure Carotid Duplex [id number]. This is a Carotid Duplex examination using B-mode, color flow and specral Doppler. Exam performed in department. VL/Carotid Duplex Ultrasound Interpretation Summary Smooth plaque at the proximal right internal carotid artery with less than 50% stenosis. Less than 50% stenosis right external carotid artery Intimal thickening but no significant plaque of the left internal carotid arter y with less than 50% stenosis. Tortuosity of the left internal carotid artery noted. Less than 50% stenosis of left external carotid artery Patent and antegrade vertebral arteries bilaterally Ordering Physician: Christofer Rosenberg Referring Physician: Mukesh Clark Chi Performed By: Chelsea Ott RVT
== END 2021-08-14 23:59 | disposition home or self-care (01) ==
LOC: CVS 09:52
PROVIDERS: PCP Family Medicine Geriatric Medicine; Referring Provider Psychiatry & Neurology Neurology; Visit Provider Psychiatry & Neurology Neurology
DX: Z86.73 Personal history of transient ischemic attack (TIA), and cerebral infarction without residual deficits (principal)
CPT/HCPCS: 93880

== ENCOUNTER 2021-08-14 11:16 | Outpatient (CLI) | payer MEDICARE, SELFPAY ==
[2021-08-14 12:45] LABS: Absolute Neutrophil Count 5.5 X10^3/uL (2.0-7.7); Basophil# 0.06 X10^3/uL; Basophil% 0.7 % (0-1); Eosinophils% 3.5 % (0-5); Hematocrit 40.6 % (37-47); Hemoglobin 12.9 g/dL (12.0-15.0); Lymphocyte % 23.6 % (19-41); Mean Corp Hgb Conc 31.8 g/dL (32-36); Mean Corpuscular Hgb 28.5 pg (27.0-32.0); Mean Corpuscular Volume 89.8 fL (81-99); Mean Platelet Vol. 11.2 fl (6.2-12.0); Monocyte# 0.64 X10^3/uL; Monocyte% 7.5 % (0-10); NRBC Flagged by Analyzer 0 % (0-5); Neutrophil # 5.46 X10^3/uL (2.7-7.7); Neutrophil % 64.3 % (47-70); Platelet Count 280 K/mm3 (150-450); RBC Distribution Width CV 14.3 % (11.6-14.6); RBC Distribution Width SD 47.5 fl (35.1-43.9); Red Blood Count 4.52 M/mm3 (4.2-5.4); White Blood Count 8.5 K/mm3 (4.4-11.0)
[2021-08-14 12:58] LABS: Vitamin D,25 Hydroxy 33.2 ng/mL
[2021-08-14 13:08] LABS: AST(SGOT) 16 U/L (15-37); Alanine Aminotransfer ALT/SGPT 23 U/L (13-56); Albumin, Serum 3.3 g/dL (3.2-5.0); Alkaline Phosphatase 74 U/L (45-117); Anion Gap 6 (5-15); BUN 19 mg/dL (7-18); Calcium,Total 8.4 mg/dL (8.5-10.1); Chloride 106 mmol/L (98-107); Creatinine, Serum 0.76 mg/dL (0.55-1.02); EST Glomerular Filtration Rate 79 mL/min (>60); Est Glom Filt Rate - Afr Amer 96 mL/min (>60); Globulin 3.4 g/dL (2.2-4.2); Glucose 111 mg/dL (74-106); Potassium 3.7 mmol/L (3.5-5.1); Protein, Total 6.7 g/dL (6.4-8.2); Sodium Level 141 mmol/L (136-145); Thyroid Stim Hormone (TSH) 8.87 uIU/mL (0.358-3.74)
== END 2021-08-14 23:59 | disposition home or self-care (01) ==
LOC: POLAB3 11:17
PROVIDERS: PCP Family Medicine Geriatric Medicine; Visit Provider Family Medicine Geriatric Medicine
DX: E11.9 Type 2 diabetes mellitus without complications (principal); E55.9 Vitamin D deficiency, unspecified; I10 Essential (primary) hypertension; Z86.73 Personal history of transient ischemic attack (TIA), and cerebral infarction without residual deficits; I65.23 Occlusion and stenosis of bilateral carotid arteries
CPT/HCPCS: 36415; 80053; 82306; 84443; 85025; 93880

== ENCOUNTER → 2021-12-18 | Outpatient (CLI) | payer MEDICARE, SELFPAY ==
[2021-12-18 18:09] LABS: BNP,B-Type NATRIURETIC PEPTIDE 76.5 pg/mL (0-100)
== END | disposition home or self-care (01) ==
LOC: LAB 15:48
PROVIDERS: PCP Family Medicine Geriatric Medicine; Visit Provider Internal Medicine Cardiovascular Disease
DX: R06.00 Dyspnea, unspecified (principal)
CPT/HCPCS: 36415; 83880

== ENCOUNTER → 2022-01-09 | Outpatient (CLI) | payer MEDICARE, SELFPAY ==
[2022-01-09 15:55] LABS: Absolute Lymphocyte Count 1.63 X10^3/uL (0.83-4.51); Absolute Neutrophil Count 8.2 X10^3/uL (2.0-7.7); Basophil# 0.06 X10^3/uL; Basophil% 0.5 % (0-1); Eosinophil# 0.34 X10^3/uL; Eosinophils% 3.1 % (0-5); Hematocrit 39.8 % (37-47); Lymphocyte # 1.63 X10^3/ul (0.83-4.51); Lymphocyte % 14.9 % (19-41); Mean Corp Hgb Conc 32.7 g/dL (32-36); Mean Corpuscular Hgb 29.4 pg (27.0-32.0); Mean Platelet Vol. 11.1 fl (6.2-12.0); Monocyte# 0.69 X10^3/uL; Monocyte% 6.3 % (0-10); NRBC Flagged by Analyzer 0 % (0-5); Neutrophil # 8.16 X10^3/uL (2.7-7.7); Neutrophil % 74.8 % (47-70); Platelet Count 287 K/mm3 (150-450); RBC Distribution Width CV 13.7 % (11.6-14.6); RBC Distribution Width SD 45.8 fl (35.1-43.9); Red Blood Count 4.42 M/mm3 (4.2-5.4); White Blood Count 10.9 K/mm3 (4.4-11.0)
[2022-01-09 16:34] LABS: Anion Gap 6 (5-15); BUN 22 mg/dL (7-18); BUN/Creat Ratio 27.5 RATIO (10-20); Calcium,Total 9.1 mg/dL (8.5-10.1); Chloride 107 mmol/L (98-107); EST Glomerular Filtration Rate 75 mL/min (>60); Est Glom Filt Rate - Afr Amer 90 mL/min (>60); Glucose 159 mg/dL (74-106); Potassium 4.3 mmol/L (3.5-5.1); Sodium Level 138 mmol/L (136-145); Thyroid Stim Hormone (TSH) 4.83 uIU/mL (0.358-3.74)
== END | disposition home or self-care (01) ==
LOC: POLAB3 15:14
PROVIDERS: PCP Family Medicine Geriatric Medicine; Visit Provider Family Medicine Geriatric Medicine
DX: F29 Unspecified psychosis not due to a substance or known physiological condition (principal); R53.83 Other fatigue; N39.0 Urinary tract infection, site not specified
CPT/HCPCS: 36415; 80048; 84443; 85025; 87077; 87086; 87088; 87186

== ENCOUNTER → 2022-02-14 | Outpatient (CLI) | payer MEDICARE, SELFPAY ==
[2022-02-14 16:40] LABS: Absolute Lymphocyte Count 0.94 X10^3/uL (0.83-4.51); Absolute Neutrophil Count 9.7 X10^3/uL (2.0-7.7); Basophil# 0.03 X10^3/uL; Basophil% 0.3 % (0-1); Eosinophil# 0.16 X10^3/uL; Eosinophils% 1.4 % (0-5); Hematocrit 40.6 % (37-47); Hemoglobin 12.9 g/dL (12.0-15.0); Lymphocyte # 0.94 X10^3/ul (0.83-4.51); Mean Corp Hgb Conc 31.8 g/dL (32-36); Mean Corpuscular Hgb 29.3 pg (27.0-32.0); Mean Corpuscular Volume 92.3 fL (81-99); Mean Platelet Vol. 11.7 fl (6.2-12.0); Monocyte# 0.87 X10^3/uL; Monocyte% 7.4 % (0-10); NRBC Flagged by Analyzer 0 % (0-5); Neutrophil # 9.67 X10^3/uL (2.7-7.7); Neutrophil % 82.5 % (47-70); Platelet Count 273 K/mm3 (150-450); RBC Distribution Width CV 14.2 % (11.6-14.6); RBC Distribution Width SD 48.1 fl (35.1-43.9); White Blood Count 11.7 K/mm3 (4.4-11.0)
[2022-02-14 16:57] LABS: Vitamin D,25 Hydroxy 35.3 ng/mL
[2022-02-14 17:05] LABS: ALB/GLOB Ratio 0.9 RATIO (0.9-2.4); AST(SGOT) 16 U/L (15-37); Alanine Aminotransfer ALT/SGPT 23 U/L (13-56); Albumin, Serum 3.2 g/dL (3.2-5.0); Alkaline Phosphatase 73 U/L (45-117); Anion Gap 6 (5-15); BUN 14 mg/dL (7-18); BUN/Creat Ratio 17.1 RATIO (10-20); Calcium,Total 8.7 mg/dL (8.5-10.1); Chloride 106 mmol/L (98-107); Creatinine, Serum 0.82 mg/dL (0.55-1.02); EST Glomerular Filtration Rate 73 mL/min (>60); Est Glom Filt Rate - Afr Amer 88 mL/min (>60); Globulin 3.5 g/dL (2.2-4.2); Glucose 153 mg/dL (74-106); Potassium 3.7 mmol/L (3.5-5.1); Protein, Total 6.7 g/dL (6.4-8.2); Sodium Level 139 mmol/L (136-145); Thyroid Stim Hormone (TSH) 1.75 uIU/mL (0.358-3.74)
== END | disposition home or self-care (01) ==
LOC: POLAB3 12:52
PROVIDERS: PCP Family Medicine Geriatric Medicine; Visit Provider Family Medicine Geriatric Medicine
DX: I10 Essential (primary) hypertension (principal); E11.9 Type 2 diabetes mellitus without complications; E55.9 Vitamin D deficiency, unspecified
CPT/HCPCS: 36415; 80053; 82306; 84443; 85025

== ENCOUNTER → 2022-08-22 | Outpatient (CLI) | payer MEDICARE, SELFPAY ==
[2022-08-22 12:41] LABS: Absolute Lymphocyte Count 1.37 X10^3/uL (0.83-4.51); Basophil# 0.05 X10^3/uL; Basophil% 0.8 % (0-1); Eosinophil# 0.18 X10^3/uL; Hematocrit 42.4 % (37-47); Hemoglobin 13.4 g/dL (12.0-15.0); Lymphocyte # 1.37 X10^3/ul (0.83-4.51); Lymphocyte % 22.7 % (19-41); Mean Corp Hgb Conc 31.6 g/dL (32-36); Mean Corpuscular Hgb 28.5 pg (27.0-32.0); Mean Corpuscular Volume 90.2 fL (81-99); Mean Platelet Vol. 11.7 fl (6.2-12.0); Monocyte# 0.43 X10^3/uL; Monocyte% 7.1 % (0-10); NRBC Flagged by Analyzer 0 % (0-5); Neutrophil # 3.99 X10^3/uL (2.7-7.7); Neutrophil % 66.2 % (47-70); Platelet Count 226 K/mm3 (150-450); RBC Distribution Width SD 46.3 fl (35.1-43.9)
[2022-08-22 12:59] LABS: Syphilis Antibodies Non-reactive; Vitamin B12 273 pg/mL (211-911)
[2022-08-22 13:04] LABS: ALB/GLOB Ratio 0.9 RATIO (0.9-2.4); AST(SGOT) 15 U/L (15-37); Alanine Aminotransfer ALT/SGPT 11 U/L (13-56); Albumin, Serum 3.3 g/dL (3.2-5.0); Alkaline Phosphatase 103 U/L (45-117); Anion Gap 7 (5-15); BUN 22 mg/dL (7-18); BUN/Creat Ratio 25.6 RATIO (10-20); Calcium,Total 9.2 mg/dL (8.5-10.1); Chloride 105 mmol/L (98-107); Creatinine, Serum 0.86 mg/dL (0.55-1.02); EST Glomerular Filtration Rate 68 mL/min (>60); Est Glom Filt Rate - Afr Amer 83 mL/min (>60); Globulin 3.5 g/dL (2.2-4.2); Glucose 108 mg/dL (74-106); Potassium 3.6 mmol/L (3.5-5.1); Protein, Total 6.8 g/dL (6.4-8.2); Sodium Level 140 mmol/L (136-145)
== END | disposition home or self-care (01) ==
PROVIDERS: PCP Family Medicine Geriatric Medicine; Visit Provider Family Medicine Geriatric Medicine
DX: E11.65 Type 2 diabetes mellitus with hyperglycemia (principal); E55.9 Vitamin D deficiency, unspecified; I10 Essential (primary) hypertension; R41.3 Other amnesia
CPT/HCPCS: 36415; 80053; 82306; 82607; 82746; 84443; 85025; 86780

== ENCOUNTER → 2022-11-14 | Outpatient (CLI) | payer MEDICARE, SELFPAY ==
[2022-11-14 17:12] LABS: EST Glomerular Filtration Rate 47 mL/min (>60); Est Glom Filt Rate - Afr Amer 56 mL/min (>60)
== END | disposition home or self-care (01) ==
LOC: POLAB3 14:30
PROVIDERS: Surgery Trauma Surgery; PCP Family Medicine Geriatric Medicine; Visit Provider Family Medicine Geriatric Medicine
DX: E03.9 Hypothyroidism, unspecified (principal)
CPT/HCPCS: 36415; 82565; 84443

== ENCOUNTER → 2023-02-05 | Outpatient (CLI) | payer MEDICARE, SELFPAY ==
[2023-02-05 12:49] LABS: Absolute Neutrophil Count 4.9 X10^3/uL (2.0-7.7); Basophil# 0.09 X10^3/uL; Basophil% 1.2 % (0-1); Eosinophil# 0.24 X10^3/uL; Eosinophils% 3.2 % (0-5); Hematocrit 40.3 % (37-47); Hemoglobin 12.9 g/dL (12.0-15.0); Mean Corpuscular Hgb 30.5 pg (27.0-32.0); Mean Corpuscular Volume 95.3 fL (81-99); Mean Platelet Vol. 10.8 fl (6.2-12.0); Monocyte# 0.43 X10^3/uL; Monocyte% 5.8 % (0-10); NRBC Flagged by Analyzer 0 % (0-5); Neutrophil # 4.92 X10^3/uL (2.7-7.7); Neutrophil % 66.5 % (47-70); Platelet Count 215 K/mm3 (150-450); RBC Distribution Width CV 16.1 % (11.6-14.6); RBC Distribution Width SD 57.3 fl (35.1-43.9); Red Blood Count 4.23 M/mm3 (4.2-5.4); White Blood Count 7.4 K/mm3 (4.4-11.0)
[2023-02-05 13:16] LABS: Vitamin D,25 Hydroxy 23.6 ng/mL
[2023-02-05 13:22] LABS: ALB/GLOB Ratio 1.1 RATIO (0.9-2.4); AST(SGOT) 33 U/L (15-37); Alanine Aminotransfer ALT/SGPT 21 U/L (13-56); Albumin, Serum 3.9 g/dL (3.2-5.0); Alkaline Phosphatase 81 U/L (45-117); Anion Gap 6 (5-15); BUN 13 mg/dL (7-18); BUN/Creat Ratio 11.9 RATIO (10-20); Calcium,Total 9.3 mg/dL (8.5-10.1); Chloride 103 mmol/L (98-107); Cholesterol 351 mg/dL (200); Creatinine, Serum 1.09 mg/dL (0.55-1.02); EST Glomerular Filtration Rate 52 mL/min (>60); Est Glom Filt Rate - Afr Amer 63 mL/min (>60); Globulin 3.7 g/dL (2.2-4.2); Glucose 128 mg/dL (74-106); High Density Lipoprotein 62 mg/dL; Potassium 3.9 mmol/L (3.5-5.1); Protein, Total 7.6 g/dL (6.4-8.2); Sodium Level 140 mmol/L (136-145); Triglycerides 271 mg/dL; Very Low Density Lipoprotein 54 mg/dL (5-40)
== END | disposition home or self-care (01) ==
LOC: LAB 12:21
PROVIDERS: PCP Family Medicine Geriatric Medicine; Referring Provider Family Medicine Geriatric Medicine; Visit Provider Family Medicine Geriatric Medicine
DX: E11.65 Type 2 diabetes mellitus with hyperglycemia (principal); I10 Essential (primary) hypertension; E55.9 Vitamin D deficiency, unspecified
CPT/HCPCS: 36415; 80053; 80061; 82306; 84443; 85025

== ENCOUNTER → 2023-04-03 | Outpatient (CLI) | payer MEDICARE, SELFPAY ==
--- NOTE | 2023-04-03 14:51 | RAD_ITS ---
STUDY: X-RAY - THORACIC SPINE REASON FOR EXAM: Female, 77 years old. THORACIC BACK PAIN. No known injury. TECHNIQUE: 2 view(s) of the thoracic spine were obtained. COMPARISON: None. FINDINGS: Normal kyphosis of the thoracic spine. There is no substantial scoliosis. There is demineralization of the thoracic spine. Normal disc space heights. Intraluminal covered stent is seen from the distal portion of the aortic arch down to the distal portion of the thoracic aorta. There is tortuosity. RAD/Thoracic Spine 2 Views IMPRESSION: Demineralization of the thoracic vertebrae. Endoluminal stent grafting of the distal abdominal aorta down to the distal thoracic aorta. Electronically Signed: Braeden Anderson MD at 15:24 EDT ,
[2023-04-03 15:56] LABS: Thyroid Stim Hormone (TSH) 3.68 uIU/mL (0.358-3.74)
== END | disposition home or self-care (01) ==
PROVIDERS: PCP Family Medicine Geriatric Medicine; Referring Provider Family Medicine Geriatric Medicine; Visit Provider Family Medicine Geriatric Medicine
DX: M54.6 Pain in thoracic spine (principal); E03.9 Hypothyroidism, unspecified
CPT/HCPCS: 36415; 72070; 84443

== ENCOUNTER → 2023-05-07 | Outpatient (CLI) | payer MEDICARE, SELFPAY ==
[2023-05-07 12:12] LABS: Absolute Lymphocyte Count 1.16 X10^3/uL (0.83-4.51); Absolute Neutrophil Count 5.7 X10^3/uL (2.0-7.7); Basophil# 0.04 X10^3/uL; Basophil% 0.5 % (0-1); Eosinophil# 0.11 X10^3/uL; Eosinophils% 1.4 % (0-5); Hematocrit 38.9 % (37-47); Lymphocyte # 1.16 X10^3/ul (0.83-4.51); Lymphocyte % 15.2 % (19-41); Mean Corp Hgb Conc 30.8 g/dL (32-36); Mean Platelet Vol. 10.4 fl (6.2-12.0); Monocyte# 0.56 X10^3/uL; Monocyte% 7.3 % (0-10); NRBC Flagged by Analyzer 0 % (0-5); Neutrophil # 5.68 X10^3/uL (2.7-7.7); Neutrophil % 74.3 % (47-70); Platelet Count 197 K/mm3 (150-450); RBC Distribution Width CV 14.2 % (11.6-14.6); RBC Distribution Width SD 48.9 fl (35.1-43.9); Red Blood Count 4.14 M/mm3 (4.2-5.4); White Blood Count 7.7 K/mm3 (4.4-11.0)
[2023-05-07 12:19] LABS: Vitamin D,25 Hydroxy 32.6 ng/mL
[2023-05-07 12:30] LABS: AST(SGOT) 11 U/L (15-37); Alanine Aminotransfer ALT/SGPT 20 U/L (13-56); Albumin, Serum 3.1 g/dL (3.2-5.0); Alkaline Phosphatase 72 U/L (45-117); Anion Gap 5 (5-15); BUN 19 mg/dL (7-18); BUN/Creat Ratio 27.9 RATIO (10-20); Calcium,Total 8.1 mg/dL (8.5-10.1); Chloride 106 mmol/L (98-107); Cholesterol 195 mg/dL (200); Creatinine, Serum 0.68 mg/dL (0.55-1.02); EST Glomerular Filtration Rate 89 mL/min (>60); Est Glom Filt Rate - Afr Amer 108 mL/min (>60); Globulin 3.2 g/dL (2.2-4.2); Glucose 98 mg/dL (74-106); High Density Lipoprotein 59 mg/dL; Potassium 3.6 mmol/L (3.5-5.1); Protein, Total 6.3 g/dL (6.4-8.2); Sodium Level 140 mmol/L (136-145); Thyroid Stim Hormone (TSH) 6.46 uIU/mL (0.358-3.74); Triglycerides 176 mg/dL; Very Low Density Lipoprotein 35 mg/dL (5-40)
== END | disposition home or self-care (01) ==
PROVIDERS: PCP Family Medicine Geriatric Medicine; Visit Provider Family Medicine Geriatric Medicine
DX: E11.65 Type 2 diabetes mellitus with hyperglycemia (principal); E55.9 Vitamin D deficiency, unspecified; I10 Essential (primary) hypertension
CPT/HCPCS: 36415; 80053; 80061; 82306; 84443; 85025

== ENCOUNTER → 2023-08-27 | Outpatient (CLI) | payer MEDICARE, SELFPAY ==
[2023-08-27 11:38] LABS: Absolute Lymphocyte Count 1.83 X10^3/uL (0.83-4.51); Basophil# 0.05 X10^3/uL; Basophil% 0.7 % (0-1); Eosinophil# 0.22 X10^3/uL; Eosinophils% 3.3 % (0-5); Hematocrit 40.1 % (37-47); Hemoglobin 12.4 g/dL (12.0-15.0); Lymphocyte # 1.83 X10^3/ul (0.83-4.51); Lymphocyte % 27.4 % (19-41); Mean Corp Hgb Conc 30.9 g/dL (32-36); Mean Corpuscular Hgb 28.6 pg (27.0-32.0); Mean Corpuscular Volume 92.6 fL (81-99); Mean Platelet Vol. 10.6 fl (6.2-12.0); Monocyte# 0.55 X10^3/uL; Monocyte% 8.2 % (0-10); NRBC Flagged by Analyzer 0 % (0-5); Neutrophil # 3.99 X10^3/uL (2.7-7.7); Platelet Count 216 K/mm3 (150-450); RBC Distribution Width CV 13.6 % (11.6-14.6); RBC Distribution Width SD 46.5 fl (35.1-43.9); Red Blood Count 4.33 M/mm3 (4.2-5.4); White Blood Count 6.7 K/mm3 (4.4-11.0)
[2023-08-27 12:54] LABS: Vitamin D,25 Hydroxy 28.1 ng/mL
[2023-08-27 13:02] LABS: Microalbumin,Random Urine 27.4 mg/L (NO RANGE EST.); Microalbumin:Creatinine Ratio 14.6 mg/g CRE (<30 mg/g CRE)
[2023-08-27 13:13] LABS: ALB/GLOB Ratio 1.1 RATIO (0.9-2.4); AST(SGOT) 13 U/L (15-37); Alanine Aminotransfer ALT/SGPT 19 U/L (13-56); Albumin, Serum 3.3 g/dL (3.2-5.0); Alkaline Phosphatase 61 U/L (45-117); Anion Gap 7 (5-15); BUN 27 mg/dL (7-18); BUN/Creat Ratio 33.8 RATIO (10-20); Calcium,Total 8.8 mg/dL (8.5-10.1); Chloride 108 mmol/L (98-107); Cholesterol 211 mg/dL (200); EST Glomerular Filtration Rate 74 mL/min (>60); Est Glom Filt Rate - Afr Amer 90 mL/min (>60); Globulin 3.1 g/dL (2.2-4.2); Glucose 94 mg/dL (74-106); High Density Lipoprotein 59 mg/dL; Potassium 3.5 mmol/L (3.5-5.1); Protein, Total 6.4 g/dL (6.4-8.2); Sodium Level 143 mmol/L (136-145); Thyroid Stim Hormone (TSH) 4.43 uIU/mL (0.358-3.74); Triglycerides 121 mg/dL; Very Low Density Lipoprotein 24 mg/dL (5-40)
== END | disposition home or self-care (01) ==
LOC: POLAB3 10:52
PROVIDERS: PCP Family Medicine Geriatric Medicine; Visit Provider Family Medicine Geriatric Medicine
DX: E11.65 Type 2 diabetes mellitus with hyperglycemia (principal); I10 Essential (primary) hypertension; E78.5 Hyperlipidemia, unspecified; E55.9 Vitamin D deficiency, unspecified; E03.9 Hypothyroidism, unspecified
CPT/HCPCS: 36415; 80053; 80061; 82043; 82306; 82570; 83036; 84443; 85025

== ENCOUNTER → 2023-10-07 | Outpatient (CLI) | payer MEDICARE, SELFPAY ==
[2023-10-07 15:45] LABS: Thyroid Stim Hormone (TSH) 0.49 uIU/mL (0.358-3.74)
== END | disposition home or self-care (01) ==
PROVIDERS: PCP Family Medicine Geriatric Medicine; Referring Provider Family Medicine Geriatric Medicine; Visit Provider Family Medicine Geriatric Medicine
DX: E03.9 Hypothyroidism, unspecified (principal)
CPT/HCPCS: 36415; 84443

== ENCOUNTER → 2024-02-05 | Outpatient (CLI) | payer MEDICARE, SELFPAY ==
[2024-02-05 11:40] LABS: Absolute Lymphocyte Count 1.28 X10^3/uL (0.83-4.51); Absolute Neutrophil Count 4.4 X10^3/uL (2.0-7.7); Basophil# 0.05 X10^3/uL; Basophil% 0.8 % (0-1); Eosinophil# 0.22 X10^3/uL; Eosinophils% 3.3 % (0-5); Hematocrit 37.3 % (37-47); Hemoglobin 11.9 g/dL (12.0-15.0); Lymphocyte # 1.28 X10^3/ul (0.83-4.51); Lymphocyte % 19.4 % (19-41); Mean Corp Hgb Conc 31.9 g/dL (32-36); Mean Corpuscular Hgb 28.3 pg (27.0-32.0); Mean Corpuscular Volume 88.8 fL (81-99); Mean Platelet Vol. 10.4 fl (6.2-12.0); Monocyte% 9.1 % (0-10); NRBC Flagged by Analyzer 0 % (0-5); Neutrophil # 4.42 X10^3/uL (2.7-7.7); Neutrophil % 67.1 % (47-70); Platelet Count 200 K/mm3 (150-450); White Blood Count 6.6 K/mm3 (4.4-11.0)
[2024-02-05 12:04] LABS: Anion Gap 5 (5-15); BUN 23 mg/dL (7-18); BUN/Creat Ratio 31.3 RATIO (10-20); Calcium,Total 8.4 mg/dL (8.5-10.1); Chloride 108 mmol/L (98-107); Creatinine, Serum 0.74 mg/dL (0.55-1.02); EST Glomerular Filtration Rate 82 mL/min (>60); Est Glom Filt Rate - Afr Amer 99 mL/min (>60); Glucose 113 mg/dL (74-106); Potassium 4.2 mmol/L (3.5-5.1); Sodium Level 142 mmol/L (136-145)
[2024-02-05 16:30] LABS: Hemoglobin A1c 5.6 % (3.8-5.6)
== END | disposition home or self-care (01) ==
PROVIDERS: PCP Family Medicine Geriatric Medicine; Visit Provider Family Medicine Geriatric Medicine
DX: E11.65 Type 2 diabetes mellitus with hyperglycemia (principal); R53.83 Other fatigue; E78.5 Hyperlipidemia, unspecified
CPT/HCPCS: 36415; 80048; 83036; 85025

== ENCOUNTER → 2024-03-03 | Outpatient (CLI) | payer MEDICARE, SELFPAY ==
[2024-03-03 13:12] LABS: Absolute Lymphocyte Count 1.95 X10^3/uL (0.83-4.51); Absolute Neutrophil Count 4.5 X10^3/uL (2.0-7.7); Basophil# 0.05 X10^3/uL; Basophil% 0.7 % (0-1); Eosinophil# 0.39 X10^3/uL; Eosinophils% 5.2 % (0-5); Hemoglobin 12.4 g/dL (12.0-15.0); Lymphocyte # 1.95 X10^3/ul (0.83-4.51); Lymphocyte % 25.8 % (19-41); Mean Corp Hgb Conc 31.8 g/dL (32-36); Mean Corpuscular Hgb 28.1 pg (27.0-32.0); Mean Corpuscular Volume 88.4 fL (81-99); Mean Platelet Vol. 10.7 fl (6.2-12.0); Monocyte# 0.69 X10^3/uL; Monocyte% 9.1 % (0-10); NRBC Flagged by Analyzer 0 % (0-5); Neutrophil # 4.46 X10^3/uL (2.7-7.7); Neutrophil % 58.9 % (47-70); Platelet Count 215 K/mm3 (150-450); RBC Distribution Width CV 13.8 % (11.6-14.6); RBC Distribution Width SD 44.6 fl (35.1-43.9); Red Blood Count 4.41 M/mm3 (4.2-5.4); White Blood Count 7.6 K/mm3 (4.4-11.0)
[2024-03-03 13:40] LABS: Vitamin D,25 Hydroxy 21.6 ng/mL
[2024-03-03 13:47] LABS: ALB/GLOB Ratio 0.9 RATIO (0.9-2.4); AST(SGOT) 15 U/L (15-37); Alanine Aminotransfer ALT/SGPT 14 U/L (13-56); Alkaline Phosphatase 76 U/L (45-117); Anion Gap 2 (5-15); BUN 20 mg/dL (7-18); Calcium,Total 8.8 mg/dL (8.5-10.1); Chloride 109 mmol/L (98-107); Cholesterol 183 mg/dL (200); Creatinine, Serum 0.74 mg/dL (0.55-1.02); EST Glomerular Filtration Rate 81 mL/min (>60); Est Glom Filt Rate - Afr Amer 98 mL/min (>60); Globulin 3.3 g/dL (2.2-4.2); Glucose 131 mg/dL (74-106); High Density Lipoprotein 50 mg/dL; Potassium 3.7 mmol/L (3.5-5.1); Protein, Total 6.3 g/dL (6.4-8.2); Sodium Level 142 mmol/L (136-145); Thyroid Stim Hormone (TSH) 0.106 uIU/mL (0.358-3.740); Triglycerides 209 mg/dL; Very Low Density Lipoprotein 42 mg/dL (5-40)
== END | disposition home or self-care (01) ==
LOC: POLAB3 13:00
PROVIDERS: PCP Family Medicine Geriatric Medicine; Visit Provider Family Medicine Geriatric Medicine
DX: E11.65 Type 2 diabetes mellitus with hyperglycemia (principal); I10 Essential (primary) hypertension; E55.9 Vitamin D deficiency, unspecified; E78.5 Hyperlipidemia, unspecified
CPT/HCPCS: 36415; 80053; 80061; 82306; 83036; 84443; 85025

== ENCOUNTER → 2024-04-15 | Outpatient (CLI) | payer MEDICARE, SELFPAY ==
[2024-04-15 14:38] LABS: Thyroid Stim Hormone (TSH) 0.105 uIU/mL (0.358-3.740)
== END | disposition home or self-care (01) ==
LOC: LAB 12:48
PROVIDERS: PCP Family Medicine Geriatric Medicine; Referring Provider Family Medicine Geriatric Medicine; Visit Provider Family Medicine Geriatric Medicine
DX: E03.9 Hypothyroidism, unspecified (principal)
CPT/HCPCS: 36415; 84443

== ENCOUNTER → 2024-05-31 | Outpatient (CLI) | payer MEDICARE, SELFPAY ==
[2024-05-31 16:12] LABS: Thyroid Stim Hormone (TSH) 0.165 uIU/mL (0.358-3.740)
== END | disposition home or self-care (01) ==
LOC: POLAB3 14:31
PROVIDERS: PCP Family Medicine Geriatric Medicine; Visit Provider Family Medicine Geriatric Medicine
DX: E03.9 Hypothyroidism, unspecified (principal)
CPT/HCPCS: 36415; 84443

== ENCOUNTER → 2024-08-30 | Outpatient (CLI) | payer MEDICARE, SELFPAY ==
[2024-08-30 15:00] LABS: Absolute Lymphocyte Count 1.25 X10^3/uL (0.83-4.51); Absolute Neutrophil Count 7.7 X10^3/uL (2.0-7.7); Basophil# 0.05 X10^3/uL; Basophil% 0.5 % (0-1); Eosinophil# 0.19 X10^3/uL; Eosinophils% 1.9 % (0-5); Hematocrit 38.1 % (37-47); Hemoglobin 12.1 g/dL (12.0-15.0); Lymphocyte # 1.25 X10^3/ul (0.83-4.51); Lymphocyte % 12.8 % (19-41); Mean Corp Hgb Conc 31.8 g/dL (32-36); Mean Corpuscular Hgb 28.5 pg (27.0-32.0); Mean Corpuscular Volume 89.9 fL (81-99); Mean Platelet Vol. 10.9 fl (6.2-12.0); Monocyte% 6.1 % (0-10); NRBC Flagged by Analyzer 0 % (0-5); Neutrophil # 7.67 X10^3/uL (2.7-7.7); Neutrophil % 78.3 % (47-70); Platelet Count 234 K/mm3 (150-450); RBC Distribution Width CV 14.2 % (11.6-14.6); RBC Distribution Width SD 46.7 fl (35.1-43.9); Red Blood Count 4.24 M/mm3 (4.2-5.4); White Blood Count 9.8 K/mm3 (4.4-11.0)
[2024-08-30 15:41] LABS: Microalbumin,Random Urine 56.7 mg/L (NO RANGE EST.); Microalbumin:Creatinine Ratio 236.3 mg/g CRE
[2024-08-31 00:54] LABS: Cholesterol 199 mg/dL (<=200); High Density Lipoprotein 51 mg/dL; Low Density Lipoprotein Calc. 108 mg/dL; Thyroid Stim Hormone (TSH) 0.492 uIU/mL (0.300-4.200); Triglycerides 200 mg/dL; Very Low Density Lipoprotein 40 mg/dL (5-40); Vitamin D,25 Hydroxy 31.8 ng/mL (30-100); cholesterol:hdl ratio screen 3.87
[2024-08-31 01:11] LABS: ALB/GLOB Ratio 1.5 RATIO (0.9-2.4); AST(SGOT) 22 U/L (<=31); Alanine Aminotransfer ALT/SGPT 15 U/L (<=34); Alkaline Phosphatase 71 U/L (35-104); Anion Gap 16 (5-15); BUN 25 mg/dL (4-19); BUN/Creat Ratio 34.1 RATIO (10-20); Carbon Dioxide 20.7 mmol/L (22.0-29.0); Chloride 104 mmol/L (96-108); Creatinine, Serum 0.73 mg/dL (0.70-1.20); EST Glomerular Filtration Rate 85 (>60); Globulin 2.6 g/dL (2.2-4.2); Glucose 111 mg/dL (70-99); Protein, Total 6.6 g/dL (5.9-8.4); Sodium Level 141 mmol/L (133-145); Total Bilirubin 0.33 mg/dL (0.00-1.30)
== END | disposition home or self-care (01) ==
LOC: POLAB3 14:16
PROVIDERS: PCP Family Medicine Geriatric Medicine; Visit Provider Family Medicine Geriatric Medicine
DX: E11.65 Type 2 diabetes mellitus with hyperglycemia (principal); I10 Essential (primary) hypertension; E55.9 Vitamin D deficiency, unspecified; E78.5 Hyperlipidemia, unspecified
CPT/HCPCS: 36415; 80053; 80061; 82043; 82306; 82570; 83036; 84443; 85025

== ENCOUNTER → 2024-10-06 | Outpatient (CLI) | payer MEDICARE, SELFPAY ==
--- NOTE | 2024-10-06 15:45 | CT_ITS ---
PROCEDURE: CTA CHEST, ABDOMEN, PELVIS W AND/OR WO 10/06/2024 REASON FOR EXAM: S/P THORACOABDOMINAL ANEURYSM REPAIR TECHNIQUE: Contiguous axial scans of 2.5 mm slice thicknesses. Sagittal and coronal reconstruction images were obtained. Coronal and Sagittal reconstruction series were provided. 3D, 3D post processing, 3D reconstructions, Maximum intensity projection (MIPs) Volume rendering and Shaded surface rendering was provided. One or more dose reduction techniques were used (e.g., automated exposure control, adjustment of mA and/or kv according to patient size, use of iterative reconstruction technique). PATIENT PREPARATION: Per protocol ORAL CONTRAST TYPE: None. CONTRAST: Isovue 370 VOLUME: 100 mL. COMPARISON: No relevant prior. FINDINGS: CHEST: Lines and tubes: Unremarkable. Mediastinum: Unremarkable. Heart: Normal in size and configuration. Thoracic Aorta: Diffuse fusiform aneurysmal dilatation of the aorta with placement of a stent graft extending from the aortic arch to just below the diaphragm. Active extravasation of contrast material is noted at the junction of the arch and descending thoracic aorta. Marked soft tissue thickening along the medial aspect of the aorta at the site of leakage measuring 2.4 cm in thickness. A 2nd site of contrast extravasation is seen at the distal descending thoracic aorta, axial image 85, sagittal image 93. Soft tissue thickening surrounds the aorta at this level measuring 1.8 cm in maximal thickness. Lungs and Airways: No airspace consolidation. Few small areas of parenchymal scarring in the lung bases. Pleura: No pleural effusions, thickening, or pneumothorax. Bones: Multilevel spondylosis and degenerative disc disease. Other: No other significant findings. ABDOMEN AND PELVIS: Liver: Unremarkable. Gallbladder: Surgically absent. Spleen: Unremarkable. Pancreas: Unremarkable. Adrenals: No thickening or nodules. Kidneys: Left renal cyst measuring 1.7 x 1.2 cm, axial image 125. Bladder: Unremarkable. Tiny pocket of air in the anterior aspect of the bladder. Reproductive Organs: Uterus is surgically absent. Bowel: Mild diverticulosis without signs of diverticulitis. Vasculature: Fusiform aneurysmal dilatation of the abdominal aorta. Aorta measures 3.8 x 3.5 cm at the origin of the celiac axis. Aortic diameter measures 3.0 cm at the level of the renal veins. At the bifurcation the diameter measures 1.9 cm. Diffuse atherosclerotic calcific disease in the aorta and the iliac arteries. Peritoneum / Retroperitoneum: No free fluid. No masses. No free air. Anterior abdominal wall: Unremarkable. Bones: Multilevel spondylosis and degenerative disc disease. Grade 1 anterolisthesis of L5 on S1. Osteopenia. Three (3) Dalal pins are noted fixing an old fracture of the left hip. CT/CTA Chst, Abd, Pel W and/or WO IMPRESSION: 1. An aortic thoracic endoluminal stent graft is noted extending from the dist al ascending aorta to the T12 level. 2. A Type III endoleak of the proximal graft as detailed above with adjacent s oft tissue thickening. 3. A Type III endoleak of the distal graft as detailed above with adjacent sof t tissue thickening. 4. Fusiform aneurysmal dilatation of the abdominal aorta. 5. Left renal cyst. 6. Status post cholecystectomy and hysterectomy. 7. Multilevel spondylosis and degenerative disc disease. 8. Grade 1 anterolisthesis, L5 on S1. 9. Mild diverticulosis. 10. Other nonacute findings detailed above. These findings were relayed directly to CHELY Maciel at approximately 11:10 a.m. Reading Location: [place] [id number]
== END | disposition home or self-care (01) ==
LOC: CT 15:34
PROVIDERS: PCP Family Medicine Geriatric Medicine; Referring Provider Physician Assistant; Visit Provider Physician Assistant
DX: I71.60 Thoracoabdominal aortic aneurysm, without rupture, unspecified (principal); Z98.890 Other specified postprocedural states; Z86.79 Personal history of other diseases of the circulatory system
CPT/HCPCS: 71275; 74174; Q9967

== ENCOUNTER → 2024-11-29 | Outpatient (CLI) | payer MEDICARE, SELFPAY ==
--- NOTE | 2024-11-29 16:42 | CT_ITS ---
PROCEDURE: BRAIN/HEAD WITHOUT CONTRAST 11/29/2024 REASON FOR EXAM: MIGRAINE, HEADACHE TECHNIQUE: Head CT without intravenous contrast. Coronal and Sagittal reconstruction series were provided. One or more dose reduction techniques were used (e.g., Automated exposure control, adjustment of the mA and/or kV according to patient size, use of iterative reconstruction technique. RADIATION DOSE SUMMARY: CTDlvol: 47.06 mGy DLP: 837.39 mGycm COMPARISON: 04/13/2019. FINDINGS: Moderate global parenchymal atrophy. Periventricular white matter hypodensity likely represent chronic microvascular ischemia. No evidence of acute hemorrhage or infarction. No extra-axial blood or fluid collections. The paranasal sinuses are clear. The mastoid air cells are well aerated. CT/Brain/Head without Contrast IMPRESSION: No acute intracranial abnormality. Reading Location: [place] [id number]
[2024-11-29 17:36] LABS: Absolute Lymphocyte Count 1.63 X10^3/uL (0.83-4.51); Absolute Neutrophil Count 7.2 X10^3/uL (2.0-7.7); Basophil# 0.05 X10^3/uL; Basophil% 0.5 % (0-1); Eosinophil# 0.15 X10^3/uL; Eosinophils% 1.5 % (0-5); Hematocrit 40.9 % (37-47); Hemoglobin 13.1 g/dL (12.0-15.0); Lymphocyte # 1.63 X10^3/ul (0.83-4.51); Lymphocyte % 16.7 % (19-41); Mean Corpuscular Hgb 28.6 pg (27.0-32.0); Mean Corpuscular Volume 89.3 fL (81-99); Mean Platelet Vol. 10.8 fl (6.2-12.0); Monocyte# 0.66 X10^3/uL; Monocyte% 6.8 % (0-10); NRBC Flagged by Analyzer 0 % (0-5); Neutrophil # 7.24 X10^3/uL (2.7-7.7); Neutrophil % 74.1 % (47-70); Platelet Count 228 K/mm3 (150-450); RBC Distribution Width CV 14.2 % (11.6-14.6); RBC Distribution Width SD 46.3 fl (35.1-43.9); Red Blood Count 4.58 M/mm3 (4.2-5.4); White Blood Count 9.8 K/mm3 (4.4-11.0)
[2024-11-29 18:11] LABS: Anion Gap 13 (5-15); BUN 17 mg/dL (4-19); BUN/Creat Ratio 21.9 RATIO (10-20); Calcium,Total 9.2 mg/dL (7.6-11.0); Chloride 99 mmol/L (98-108); Creatinine, Serum 0.75 mg/dL (0.70-1.20); EST Glomerular Filtration Rate 81 (>60); Glucose 139 mg/dL (70-99); Potassium 4.1 mmol/L (3.3-5.1); Sodium Level 136 mmol/L (133-145)
== END | disposition home or self-care (01) ==
LOC: CT 16:39
PROVIDERS: PCP Family Medicine Geriatric Medicine; Referring Provider Family Medicine Geriatric Medicine; Visit Provider Family Medicine Geriatric Medicine
DX: G43.909 Migraine, unspecified, not intractable, without status migrainosus (principal); I10 Essential (primary) hypertension
CPT/HCPCS: 36415; 70450; 80048; 85025

== ENCOUNTER → 2025-03-01 | Outpatient (CLI) | payer MEDICARE, SELFPAY ==
[2025-03-01 13:00] LABS: Hematocrit 38.6 % (37-47); Hemoglobin 12.4 g/dL (12.0-15.0); Immature Granulocytes Count 0.040 X10^3/uL (0.0-0.0); Mean Corp Hgb Conc 32.1 g/dL (32-36); Mean Corpuscular Volume 90.4 fL (81-99); Mean Platelet Vol. 10.6 fl (6.2-12.0); NRBC Flagged by Analyzer 0 % (0-5); Platelet Count 202 K/mm3 (150-450); RBC Distribution Width CV 14.2 % (11.6-14.6); RBC Distribution Width SD 47.0 fl (35.1-43.9); Red Blood Count 4.27 M/mm3 (4.2-5.4); White Blood Count 9.0 K/mm3 (4.4-11.0)
[2025-03-01 13:54] LABS: AST(SGOT) 20 U/L (<=31); Alanine Aminotransfer ALT/SGPT 13 U/L (<=34); Albumin, Serum 4.0 g/dL (3.4-4.8); Alkaline Phosphatase 67 U/L (35-104); Anion Gap 11 (5-15); BUN 18 mg/dL (4-19); BUN/Creat Ratio 20.8 RATIO (10-20); Calcium,Total 9.2 mg/dL (7.6-11.0); Carbon Dioxide 27.1 mmol/L (21.0-32.0); Chloride 102 mmol/L (98-108); Cholesterol 210 mg/dL (<=200); Globulin 2.4 g/dL (2.2-4.2); Glucose 127 mg/dL (70-99); Low Density Lipoprotein Calc. 113 mg/dL; Potassium 3.9 mmol/L (3.3-5.1); Triglycerides 214 mg/dL; Very Low Density Lipoprotein 43 mg/dL (5-40); Vitamin D,25 Hydroxy 25.1 ng/mL (30-100); cholesterol:hdl ratio screen 3.87
[2025-03-01 20:49] LABS: Xtra Tube Kwok EXTRA TUBE
== END | disposition home or self-care (01) ==
LOC: POLAB3 12:49
PROVIDERS: PCP Family Medicine Geriatric Medicine; Visit Provider Family Medicine Geriatric Medicine
DX: E11.65 Type 2 diabetes mellitus with hyperglycemia (principal); I10 Essential (primary) hypertension; E78.5 Hyperlipidemia, unspecified; E55.9 Vitamin D deficiency, unspecified
CPT/HCPCS: 36415; 80053; 80061; 82306; 83036; 84443; 85025